=== PATIENT | female | born 1955 | race Caucasian/White ===

== ENCOUNTER 2019-11-29 17:53 | Emergency (ER) | payer BC, MEDICARE ==
[~2019-11-29] VITALS: Ht 154.9 cm; Wt 104.8 kg
[~2019-11-29 17:53] MED LIST: ASPIR 8181 MG PO; ATIVAN1 MG; B-121000 MCG PO; CINNAMON500 MG PO; CIPRO XR 500 M500 MG PO; CIPRO500 MG PO; DIAZEPAM5 MG PO; FAMOTIDINE20 MG PO; FISH OIL 1,2001 EACH PO; LISINOPRIL20 MG PO; PLAVIX75 MG PO; PRAVASTATIN SOD20 MG PO; VITAMIN E400 UNI3 PO
--- OUTSIDE RECORDS SUMMARY | 2019-11-29 17:56 | XMS REPORT ---
Author Author BEATRIZ Bradford [facility] eClinicalWorks Address Unknown Phone Unavailable Care Team Providers Care Facilities Maintenance Supervisor Name Role Phone El Bradford CP Unavailable Allergies, Adverse Reactions, Alerts Substance Reaction Event Type Levaquin Info Not Available Drug Allergy Codeine Phosphate Info Not Available Drug Allergy Problems Problem Type Condition Code Onset Dates Condition Statu s Problem Cerebral embolism with cerebral infarction I63.40 Active Problem Cognitive deficit due to old cerebrovascular accident (CVA) I69.31 Active Problem Depression, major, recurrent, in remission F33.40 Active Problem Moderate episode of recurrent major depressive disorde r F33.1 Active Problem Cognitive deficit due to old cerebrovascular accident (CVA) I69.319 Active Problem Cognitive deficits due to cerebrovascular disease 438. 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 Aspirin ND 77484242191 81 MG Orally Once a day Acti ve 1 tablet Lisinopril ND 47747330354 10 mg Orally Twice a day Active 1 tablet BuPROPion HCl [facility] 80943242959 100 mg Orally Twice a day Apr 20, 2019 Active 1 tablet Vitamin B12 [facility] 67019107109 1000 MCG Orally Once a day Active 1 tablet Zolpidem Tartrate [facility] 94757943053 5 MG Active TA KE ONE (1) TABLET(S) BY MOUTH AT BEDTIME. Vitamin E [facility] 28611950251 400 UNIT Orally Once a day Active 1 capsule Fish Oil [facility] 58992749241 1200 MG Orally Once a day A ctive 1 capsule Cephalexin [facility] 23208736334 500 mg Orally every 6 hrs Jun 08 9 Jun 18, 2019 Active 1 capsule Vital Signs Date/Time: Jun 08, 2019 BMI 41.56 Index Weight 220.0 lbs Height 61 in Cardiac Monitoring Heart Rate 57 /min Blood Pressure Diastolic 47 mm Hg Blood Pressure Systolic 108 mm Hg Results No Known Results Summary Purpose eClinicalWorks Submission
--- OUTSIDE RECORDS SUMMARY | 2019-11-29 17:56 | XMS REPORT | Summary of Care ---
Author Author [facility] Organization [facility] Address Unknown Phone Unavailable Encounter HQ Eduardo(FIN) [id number] Date(s): 02/07/18 - 02/08/18 [facility] [address] [place], [place] [id number]- [phone] Vital Signs No data available for this section Problem List Condition Effective Dates Status Health Status Informan t Embolic 08/21/15 Active stroke(Confirmed)1 Factor 5 Leiden Resolved mutation, heterozygous(Confirm ed) Hypertension(Confirm Resolved ed) Melanoma(Confirmed) Resolved Morbid Active obesity(Confirmed) Mourning(Confirmed)2 02/20/16 Resolved Non-traumatic 02/20/16 Active rhabdomyolysis(Confi rmed)3 Persistent 02/20/16 Active insomnia(Confirmed)4 , 5 Recurrent major 02/20/16 Active depression in remission(Confirmed) 6 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 The only VRFs discovered is a history of smoking in the past and FVLP. She developed HTN post-stroke. Originally documented as Cerebral embolism with cerebral infarction. 2Data migrated from [employer] on 07/08/15. Originally documented as Grief. 3Data migrated from [employer] on 07/08/15. The event of diffuse muscle pain was likely rhabdo related to the statin plus dehydration. Originally documented as Non-traumatic rhabdomyolysis. 4Data migrated from [employer] on 07/08/15. RT prior stroke (OBS). Originally documented as Persistent disorder of initiating or maintaining sleep. 5Data migrated from [employer] on 07/08/15. Originally documented as Persistent disorder of initiating or maintaining sleep. 6Data migrated from [employer] on 07/08/15. Doing well. Originally documented as Depression, major, recurrent, in remission. 7Data migrated from [employer] on 07/08/15. The patient continues to have symptoms of cognitive impairment despite have relatively controlled depression. Originally documented as Cognitive deficit due to old cerebrovascular accident (CVA). Allergies, Adverse Reactions, Alerts Substance Reaction Severity Status penicillins1 Active sulfa drugs2 Active codeine3 Active levoFLOXacin4 Active 1Data migrated from [employer] on 07/06/16. Originally documented as penicillin. 2Data migrated from [employer] on 07/06/16. Originally documented as sulfa. 3Data migrated from [employer] on 07/06/16. Originally documented as Codeine Phosphate. 4Data migrated from [employer] on 07/06/16. Originally documented as Levaquin. Medications No data available for this section Results No data available for this section Immunizations No data available for this section Procedures Procedure Date Related Diagnosis Body Site Status Hysterectomy 2000 Completed Coronary heart disease monitoring Completed Suspension of bladder Completed Social History Social History Type Response Substance Abuse Use: None. Recreational Dr [place] Route: Oral. Exercise Exercise frequency: Daily. Exercise type: Walking. Employment/School Status: Unemployed. Highes t education level: High school.1 Alcohol Never Smoking Status Former smoker; Exposure to Tobacco Smoke Unable to obtain; Cigarette Smoking Last 365 Days Unable to obtain; Reg Smoking Cessation Counseling No entered on: 04/20/18 1disability Assessment and Plan No data available for this section
--- OUTSIDE RECORDS SUMMARY | 2019-11-29 17:56 | XMS REPORT | Summary of Care ---
Author [facility] Address Unknown Phone Unavailable Encounter DELFIN Clark(FIN) [id number] Date(s): 03/11/18 - 03/12/18 [facility] [address] [place] [address] [phone] Vital Signs No data available for this [...] Restless leg Resolved syndrome(Confirmed) 1Data migrated from [employer] on 07/08/15. 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 The only VRFs discovered is a history of smoking in the past and FVLP. She developed HTN post-stroke. Originally documented as Cerebral embolism with cerebral infarction. 2Data migrated from [employer] on 07/08/15. Originally documented as Grief. 3Data migrated from [employer] on 07/08/15. The event of diffuse muscle pain was likely rhabdo related to the statin plus dehydration. Originally documented as Non-traumatic rhabdomyolysis. 4Data migrated from [employer] on 07/08/15. RT prior stroke (OBS). Originally documented as Persistent disorder of initiating or maintaining sleep. 5Data migrated from [employer] on 07/08/15. Originally documented as Persistent disorder of initiating or maintaining sleep. 6Data migrated from [employer] on 07/08/15. Doing well. Originally documented as Depression, major, recurrent, in remission. 7Data migrated from [employer] on 07/08/15. The patient continues to have symptoms of cognitive impairment despite have relatively controlled depression. Originally documented as Cognitive deficit due to old cerebrovascular accident (CVA). Allergies, Adverse Reactions, Alerts Substance Reaction Severity Status penicillins1 Active sulfa drugs2 Active codeine3 Active levoFLOXacin4 Active 1Data migrated from [employer] on 07/06/16. Originally documented as penicillin. 2Data migrated from [employer] on 07/06/16. Originally documented as sulfa. 3Data migrated from [employer] on 07/06/16. Originally documented as Codeine Phosphate. 4Data migrated from [employer] on 07/06/16. Originally documented as Levaquin. Medications No data available for this section Results No data available for this section Immunizations No data available for this section Procedures Procedure Date Related Diagnosis Body Site Status Hysterectomy 2000 Completed Coronary heart disease monitoring Completed Suspension of bladder Completed Social History Social History Type Response Substance Abuse Use: None. Recreational Dr jun Route: Oral. Exercise Exercise frequency: Daily. Exercise [...]
--- OUTSIDE RECORDS SUMMARY | 2019-11-29 17:56 | XMS REPORT ---
Author Author BEATRIZ Bradford Organization [employer] Address Unknown Phone Unavailable Care Team Providers Care Parts Counterperson Name Role Phone El Bradford CP Unavailable Allergies No Known Allergies Problems Problem Type Condition Code Onset Dates Condition Statu s Problem Depression, major, recurrent, in remission F33.40 Active Problem Cerebral embolism with cerebral infarction I63.40 Active Problem Cognitive deficit due to old cerebrovascular accident (CVA) I69.319 Active Problem Organic brain syndrome (chronic) F09 Active Problem Moderate episode of recurrent major depressive disorde r F33.1 Active Problem 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
--- OUTSIDE RECORDS SUMMARY | 2019-11-29 17:56 | XMS REPORT ---
Author Author BEATRIZ Bradford [facility] eClinicalWorks Address Unknown Phone Unavailable Care Team Providers Care Media Traffic Manager Name Role Phone Dr. El Bradford CP Unavailable Allergies, Adverse Reactions, Alerts Substance Reaction Event Type penicillin Info Not Available Drug Allergy sulfa Info Not Available Drug Allergy Levaquin Info Not Available Drug Allergy Codeine Phosphate Info Not Available Drug Allergy Encounters Encounter Location Date 6 month f/u [place] Feb 18, 2015 Zoloft Refill [place], [place] Mar 01, 2015 Unknown [place] Jun 04, 2015 6 month f/u El [place], [place] August 21, 2015 f/u [place] August 28, 2014 Wants to decrease dose on Sertraline El [place], [place] Aug Unknown El [place], [place] December 09, 2014 Problems Problem Type Condition ICD-9 Code Onset Dates Condition Statu s Assessment Depression, major, recurrent, in remission F33.40 Active Problem Cerebral embolism with cerebral infarction I63.40 Active Problem Cognitive deficit due to old cerebrovascular accident (CVA) I69.31 Active Problem 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 Active Assessment 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 Active Assessment Cognitive deficit due to old cerebrovascular accident (CVA) I69.31 Active Problem Depression, major, recurrent, in remission F33.40 Active Assessment Cerebral embolism with cerebral infarction I63.40 Active Medications Medication Code System Code Instructions Start Date End Date Status Dosage Lisinopril [facility] [address]-81 10 mg Orally Twice a day Active 1 tablet Aspirin [facility] [address]-75 81 MG Orally Once a day A ctive 1 tablet Pravastatin Sodium [facility] [address]-34 20 MG Orally Once a day Active 1 tablet Sertraline HCl [facility] [address]-63 20 MG/ML Orally once every nigh t Active 0.8 mls Zolpidem Tartrate [facility] [address]-43 5 MG Orally Once a day May 212014 Active 1 tablet at bedtime Social History Social History Element Qualifiers Date Reported Highest level of education completed: . High school diploma August 21, 2015 Tobacco Use: . Are you a: former smoker before her stroke but does not remember August 21, 2015 Use of recreational / street drugs? . Answer: No Terrance 2015 Marital Status: . August 21, 2015 Caffeine intake? . Status: Yes, What type: Coffee, Tea, 1 - 2 cup(s) a day August 21, 2015 Do you exercise? . Answer: Yes, Type: walkin g couple miles a day weather permitting August 21, 2015 Do you drink alcohol? . 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
--- OUTSIDE RECORDS SUMMARY | 2019-11-29 17:56 | XMS REPORT ---
Author Author BEATRIZ Alfaro Organization Unknown Address Unknown Phone Care Team Providers Care Instrument Lens Grinder Apprentice Name Role Phone Ashly Alfaro PP Reason for Referral No Reason for Referral was given. History of Present Illness No HPI available. Problems * Normal Routine History And Physical Adult (V70.0); (Active) * Hypertension (401.9); (Active) * Anxiety Disorder Of Unknown ([place] III) Etiology (293.84); (Active) Medication * LORazepam 0.5 MG Oral Tablet; 1 bid (Active) * Lexapro 10 MG Oral Tablet; TAKE 1 TABLET DAILY. (Active) * Fish Oil CAPS (Active) * Diazepam 5 MG Oral Tablet; 1 bid (Active) * Lisinopril 20 MG Oral Tablet; TAKE 1 TABLET DAILY. (Active) * Pravastatin Sodium 20 MG Oral Tablet; TAKE 1 TABLET DAILY. (Active) * Aspirin 81 MG Oral Tablet; one daily (Active) * Vitamin B-12 TABS (Active) * Vitamin E CAPS (Active) Allergies and Adverse Reactions * Sulfa Drugs (Active) * Penicillins (Active) * Codeine Derivatives (Active) * Levaquin TABS (Active) Past Medical History * History of Melanoma In Situ Of The Skin (V10.82); (Resolved) * History of History Of 2 Previous Pregnancies (V61.5); (Resolved) * History of Cerebral Artery Occlusion (434.90); (Resolved) * History of Urinary Tract Infection (V13.02); (Resolved) Procedures Procedure Procedure Date Date Completed Status Hysterectomy - - Resolved Bladder Procedures - - Resolved Immunization * Influenza - Administered on: 03/23/2011 Family History * Family history of Alzheimer Disease (Active) * Family history of Ovarian Cancer (V16.41); (Active) * Family history of Colon Cancer (V16.0); (Active) Social History * Former Smoker (V15.82); (Active) * Never Drank Alcohol (Active) Advance Directives * No Advance Directives available. Encounters * AUDIT 02/15/2013
--- OUTSIDE RECORDS SUMMARY | 2019-11-29 17:56 | XMS REPORT | Summary of Care ---
Author Author [facility] Organization [facility] Address Unknown Phone Unavailable Encounter DELFIN Clark(FIN) [id number] Date(s): 06/08/17 - 06/09/17 [facility] [address] [place], [place] [address] [phone] Vital Signs No data available for this section Problem List Condition Effective Dates Status Health Status Informan t Embolic 08/21/15 Active stroke(Confirmed)1 Factor 5 Leiden Resolved mutation, heterozygous(Confirm ed) Hypertension(Confirm Resolved ed) Melanoma(Confirmed) Resolved Morbid Active obesity(Confirmed) Mourning(Confirmed)2 02/20/16 Active Non-traumatic 02/20/16 Active rhabdomyolysis(Confi rmed)3 Persistent 02/20/16 Active insomnia(Confirmed)4 , 5 Recurrent major 02/20/16 Active depression in remission(Confirmed) 6 Residual cognitive 02/20/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 The only VRFs discovered is a history of smoking in the past and FVLP. She developed HTN post-stroke. Originally documented as Cerebral embolism with cerebral infarction. 2Data migrated from [employer] on 07/08/15. Originally documented as Grief. 3Data migrated from [employer] on 07/08/15. The event of diffuse muscle pain was likely rhabdo related to the statin plus dehydration. Originally documented as Non-traumatic rhabdomyolysis. 4Data migrated from [employer] on 07/08/15. RT prior stroke (OBS). Originally documented as Persistent disorder of initiating or maintaining sleep. 5Data migrated from [employer] on 07/08/15. Originally documented as Persistent disorder of initiating or maintaining sleep. 6Data migrated from [employer] on 07/08/15. Doing well. Originally documented as Depression, major, recurrent, in remission. 7Data migrated from [employer] on 07/08/15. The patient continues to have symptoms of cognitive impairment despite have relatively controlled depression. Originally documented as Cognitive deficit due to old cerebrovascular accident (CVA). Allergies, Adverse Reactions, Alerts Substance Reaction Severity Status penicillins1 Active sulfa drugs2 Active codeine3 Active levoFLOXacin4 Active 1Data migrated from [employer] on 07/06/16. Originally documented as penicillin. 2Data migrated from [employer] on 07/06/16. Originally documented as sulfa. 3Data migrated from [employer] on 07/06/16. Originally documented as Codeine Phosphate. 4Data migrated from [employer] on 07/06/16. Originally documented as Levaquin. Medications zolpidem 5 mg oral tablet 5 mg = 1 tab, PO, Bedtime, X 90 day, # 90 tab, 1 Refill(s), called to pharmacy Start Date: 06/09/17 Stop Date: 12/06/17 Status: Ordered Results No data available for this section Immunizations No data available for this section Procedures Procedure Date Related Diagnosis Body Site Hysterectomy 2000 Coronary heart disease monitoring Suspension of bladder Social History Social History Type Response Substance Abuse Use: None. Recreational Dr jun Route: Oral. Exercise Exercise frequency: Daily. Exercise type: Walking. Employment/School Status: Unemployed. Highes t education level: High school.1 Alcohol Never Smoking Status Former smoker; Exposure to Tobacco Smoke Unable to obtain; Cigarette Smoking Last 365 Days Unable to obtain; Reg Smoking Cessation Counseling No 1disability Assessment and Plan No data available for this section
--- OUTSIDE RECORDS SUMMARY | 2019-11-29 17:56 | XMS REPORT ---
Author Author BEATRIZ Bradford [facility] eClinicalWorks Address Unknown Phone Unavailable Care Team Providers Care Senior Patient Account Representative Name Role Phone El Bradford CP Unavailable Encounters Encounter Location Date f/u [place] August 28, 2014 Wants to decrease dose on Sertraline El Bradford [place], [place] Aug Unknown El [place], [place] December 09, 2014 Problems Problem Type Condition ICD-9 Code Onset Dates Condition Statu s Problem 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 0 Active Problem Persistent disorder of initiating or maintaining sleep 307.42 Active Problem Major depressive disorder, recurrent episode, moderate 296.32 Active Assessment Persistent disorder of initiating or maintaining sleep 307.42 Active Medications Medication Code System Code Instructions Start Date End Date Status Dosage Zoloft [facility] [address]-22 20 MG/ML Orally Once a day Active .9 ml at bedtime Pravastatin Sodium [facility] [address]-55 20 MG Orally Once a day Active [address] [facility] [address]-79 10 mg Orally Twice a day Active [address] [facility] [address]-60 5 MG Orally Once a day December 09, 2014 Active 1 tablet at bedtime Aspirin [facility] [address]-99 81 MG Orally Once a day A ctive 1 tablet Social History Social History Element Qualifiers Date Reported Highest level of education completed: . High school diploma August 28, 2014 Tobacco Use: . Are you a: former smoker before her stroke but does not remember August 28, 2014 Use of recreational / street drugs? . Answer: No Terrance 2014 Marital Status: . August 28, 2014 Caffeine intake? . Status: Yes, What type: Coffee, Tea, 1 - 2 cup(s) a day August 28, 2014 Do you exercise? . Answer: Yes, Type: walkin g couple miles a day weather permitting August 28, 2014 Do you drink alcohol? . 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
--- OUTSIDE RECORDS SUMMARY | 2019-11-29 17:56 | XMS REPORT | Summary of Care ---
Author Author [facility] Organization [facility] Address Unknown Phone Unavailable Encounter DELFIN Clark(FIN) [id number] Date(s): 11/22/17 - 11/23/17 [facility] [address] [place] [phone] Vital Signs No data available for this [...] Restless leg Resolved syndrome(Confirmed) 1Data migrated from [employer] on 07/08/15. 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 The only VRFs discovered is a history of smoking in the past and FVLP. She developed HTN post-stroke. Originally documented as Cerebral embolism with cerebral infarction. 2Data migrated from [employer] on 07/08/15. Originally documented as Grief. 3Data migrated from [employer] on 07/08/15. The event of diffuse muscle pain was likely rhabdo related to the statin plus dehydration. Originally documented as Non-traumatic rhabdomyolysis. 4Data migrated from [employer] on 07/08/15. RT prior stroke (OBS). Originally documented as Persistent disorder of initiating or maintaining sleep. 5Data migrated from [employer] on 07/08/15. Originally documented as Persistent disorder of initiating or maintaining sleep. 6Data migrated from [employer] on 07/08/15. Doing well. Originally documented as Depression, major, recurrent, in remission. 7Data migrated from [employer] on 07/08/15. The patient continues to have symptoms of cognitive impairment despite have relatively controlled depression. Originally documented as Cognitive deficit due to old cerebrovascular accident (CVA). Allergies, Adverse Reactions, Alerts Substance Reaction Severity Status penicillins1 Active sulfa drugs2 Active codeine3 Active levoFLOXacin4 Active 1Data migrated from [employer] on 07/06/16. Originally documented as penicillin. 2Data migrated from [employer] on 07/06/16. Originally documented as sulfa. 3Data migrated from [employer] on 07/06/16. Originally documented as Codeine Phosphate. 4Data migrated from [employer] on 07/06/16. Originally documented as Levaquin. Medications sertraline 20 mg/mL oral concentrate See Instructions, # 24 unknown unit, TAKE 0.8 ML(S) BY MOUTH DAILY., Pharmacy: [facility] [place] [facility] Start Date: 11/22/17 Status: Ordered Results No data available for [...] Reg Smoking Cessation Counseling No entered on: 04/21/17 1disability Assessment and Plan No data available for this section
--- OUTSIDE RECORDS SUMMARY | 2019-11-29 17:56 | XMS REPORT ---
Author Author BEATRIZ Bradford [facility] eClinicalWorks Address Unknown Phone Unavailable Care Team Providers Care Sand Bobber Name Role Phone El Bradford CP Unavailable Allergies, Adverse Reactions, Alerts Substance Reaction Event Type penicillin Info Not Available Drug Allergy sulfa Info Not Available Drug Allergy Levaquin Info Not Available Drug Allergy Codeine Phosphate Info Not Available Drug Allergy Encounters Encounter Location Date 6 month f/u [place] Feb 18, 2015 f[place] August 28, 2014 Wants to decrease dose on Sertraline El Bradford MD, [place] Aug Unknown [place], [place] December 09, 2014 Problems Problem Type Condition ICD-9 Code Onset Dates Condition Statu s Assessment 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 0 Active Medications Medication Code System Code Instructions Start Date End Date Status Dosage [facility] [address]-94 81 MG Orally Once a day A ctive 1 tablet Pravastatin S[facility] [address]-10 20 MG Orally Once a day Active 1 tablet Zolpidem Tartrate [facility] [address]-07 5 MG Orally Once a day December 09, 2014 Active 1 tablet at bedtime Sertraline HCl [facility] [address]-48 .08 Orally Once a day Active .8 Lisinopril [facility] [address]-42 10 mg Orally Twice a day Active 1 tablet Social History Social History Element Qualifiers Date Reported Highest level of education completed: . High school diploma Feb 18, 2015 Tobacco Use: . Are you a: former smoker before her stroke but does not remember Feb 18, 2015 Use of recreational / street drugs? . Answer: No Feb 18, 2015 Marital Status: . Feb 18, 2015 Caffeine intake? . Status: Yes, What type: Coffee, Tea, 1 - 2 cup(s) a day Feb 18, 2015 Do you exercise? . Answer: Yes, Type: walkin g couple miles a day weather permitting Feb 18, 2015 Do you drink alcohol? . 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
--- OUTSIDE RECORDS SUMMARY | 2019-11-29 17:56 | XMS REPORT | Continuity of Care Document ---
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 Originally documented as Grief. [facility] Group[facility]el Neuro,[facility] Nancie, OPID [place] Non-traumatic rhabdomyolysis (disorder) Active 02/20/2016 Problem 06/11/2019 Data migrated from [employer] on 07/08/15. The event of diffuse muscle pain was likely rhabdo related to the statin plus dehydration. Originally documented as Non-traumatic rhabdomyolysis. [facility] Jose Rafael sharpe, OPID [place] Persistent insomnia (disorder) Active 02/20/2016 Problem 06/11/2019 Data migrated from [employer] on 07/08/15. RT prior stroke (OBS). Originally documented as Persistent disorder of initiating or maintaining sleep. Data migrated from [employer] on 07/08/15. Originally documented as Persistent disorder of initiating or maintaining sleep. [facility], [facility] Nancie, OPID [place] Recurrent major depression in remission (disorder) Active 02/20/2016 Problem 06/11/2019 Data migrated from [employer] on 07/08/15. Doing well. Originally documented as Depression, major, recurrent, in remission. 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 The patient continues to have symptoms of cognitive impairment despite have relatively controlled depression. Originally documented as Cognitive deficit due to old cerebrovascular accident (CVA). Medical Group,Ismael Perez, FLORENTINO sharpe NEIL Burgos Embolic stroke (disorder) Acti ve 08/21/2015 Problem 06/11/2019 Data migrated from [employer] on . 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 The only VRFs discovered is a history of smoking in the past and FVLP. She developed HTN post-stroke. Originally documented as Cerebral embolism with cerebral infarction. 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 Active Problem 08/09/2019 [facility] [place] Persistent disorder of initiating or maintaining sleep Active Problem 06/05/2015 [facility] [place] Major depressive disorder, recurrent episode, moderate Active Problem 06/05/2015 [facility] Persistent disorder of initiating or maintaining sleep Active Problem 08/09/2019 [facility] Depression, major, recurrent, in remission Active Problem 08/09/2019 [facility] [place] Cerebral embolism with cerebral infarction Active Problem 08/09/2019 [facility] Cognitive deficit due to old cerebrovasc ular accident (CVA) Active Prob cammie 08/09/2019 [facility] Organic brain syndrome (chronic) Active Problem Na[facility] Moderate episode of recurrent major depressive disorde r Active Problem 08/09/2019 [facility] Cognitive deficit due to old cerebrovasc ular accident (CVA) Active Prob cammie 08/09/2019 [facility] Grief Active Problem 08/09/2019 [facility] Non-traumatic rhabdomyolysis A ctive Problem [facility] [place] Paronychia of finger of right hand Active Diagnosis 1 08/16/2018 [facility] Heterozygous Factor V Leiden mutation (disorder) Resolved Problem 06/11/2019 Medical GroupIsmael, FLORENTINO Fink NEIL Burgos Hypertensive disorder, systemic arterial (disorder) Resolved Problem 06/11/2019 Medical Group,[facility] Neuro,[facility] [place] [place] Malignant melanoma (disorder) Resolved Problem Medical Group,Ismael Radha ro,[facility] [place],[facility] Morbid obesity (disorder) Acti ve Problem Medical Group,Ravenmisha Garcia ro,[facility] [place],[facility] Restless legs (disorder) Resol morgan Problem Medical Group,[facility] Radha brink,[facility] [place] [place] Cough 01/23/2019 [facility] Medications Medication Details Route Status Patient Instructions Ordering Provider Order Date Source Cephalexin 1 capsule Orally Active 500 mg Orally every 6 h rs Maude 06/08/2019 [facility] [place] BuPROPion HCl 1 tablet Orally Active 100 mg Orally Twice a d ay Maude 04/20/2019 [facility] [place] zolpidem 5 mg oral tablet 5 mg = 1 tab, PO, Bedtime, X 30 day, # 30 tab, 3 Refill(s), called to pharmacy No Longer Active 07/12/2018 [facility] sertraline 20 mg/mL oral concentrate See Instructions, TAKE 0.8 ML(S) BY MOUTH DAILY., # 72 mL, 3 Refill(s), Pharmacy: [facility] [place] [facility]3 Active 04/20/2018 [facility] Vitamin B12 1000 mcg oral tablet 1,000 microgram = 1 tab, PO, Daily, 0 Refill(s) Active 04/20/2018 [facility] vitamin E 400 intl units oral capsule 400 IntlUnit = 1 cap, PO, Daily, 0 Refill(s) Active 04/20/2018 [facility] Probiotic Formula PO, Daily, 0 Refill(s) Active 04/20/2018 [facility] Fish Oil 1200 mg oral capsule 1,200 mg = 1 cap, PO, TID, 0 Refill(s) Active 04/20/2018 [facility] zolpidem 5 mg oral tablet 5 mg = 1 tab, PO, Bedtime, X 30 day, # 30 tab, 3 Refill(s), called to pharmacy No Longer Active 03/14/2018 [facility] sertraline 20 mg/mL oral concentrate See Instructions, # 24 unknown unit, Refill(s) 1, TAKE 0.8 ML(S) BY MOUTH DAILY., Pharmacy: [facility] [place] [facility]3 Active 12/20/2017 [facility] zolpidem 5 mg oral tablet 5 mg = 1 tab, PO, Bedtime, X 90 day, # 90 tab, 0 Refill(s), called to pharmacy Active 12/13/2017 [facility] sertraline 20 mg/mL oral concentrate See Instructions, # 24 unknown unit, TAKE 0.8 ML(S) BY MOUTH DAILY., Pharmacy: [facility] [place] [facility]3 Active 11/22/2017 [facility] sertraline 20 mg/mL oral concentrate See Instructions, # 24 unknown unit, TAKE 0.8 ML(S) BY MOUTH DAILY., Pharmacy: [facility] [place] [facility]3 Active 10/25/2017 [facility] sertraline 20 mg/mL oral concentrate See Instructions, # 24 unknown unit, TAKE 0.8 ML(S) BY MOUTH DAILY., Pharmacy: [facility] [place] #3 No Longer Active 09/20/2017 [facility] zolpidem 5 mg oral tablet 5 mg = 1 tab, PO, Bedtime, X 90 day, # 90 tab, 1 Refill(s), called to pharmacy Active 06/09/2017 Medical Group Sertraline HCl 0.8 mls Orally Active 20 MG/ML Orally once ev mili night [place] 02/20/2016 [facility] [place] Zolpidem Tartrate 1 tablet at bedtime Orally Active 5 MG Orally Once a day [place] 06/04/2015 Na[facility] Zolpidem Tartrate 1 tablet at bedtime Orally Active 5 MG Orally Once a day [place] 06/04/2015 [facility] [place] Zolpidem Tartrate 1 tablet at bedtime Orally Active 5 MG Orally Once a day [place] 12/09/2014 Naresh [facility] Zolpidem Tartrate 1 tablet at bedtime Orally Active 5 MG Orally Once a day Maude 08/14/2014 [facility] LORazepam 0.5 MG Oral Tablet (Active) Active [facility] Lexapro 10 MG Oral Tablet (Ac tive) Active [facility] Fish Oil CAPS (Active) Active [facility] Diazepam 5 MG Oral Tablet (Ac tive) Active [facility] Lisinopril 20 MG Oral Tablet (Active) Active [facility] Pravastatin Sodium 20 MG Oral Tablet (Active) Active [facility] Aspirin 81 MG Oral Tablet (Ac tive) Active [facility] Vitamin B-12 TABS (Active) Active [facility] Vitamin E CAPS (Active) Active [facility] Lisinopril 1 tablet Orally Active 10 mg Orally Twice a da y Maude [facility] [place] Aspirin 1 tablet Orally Active 81 MG Orally Once a day Maude Na[facility] Sertraline HCl 0.8 mls Orally Active 20 MG/ML Orally once ev mili night Maude [facility] [place] Pravastatin Sodium 1 tablet Orally Active 20 MG Orally Once a day Maude Naresh [facility] Zoloft .9 ml at bedtime Orally Active 20 MG/ML Orally Once a day Maude [facility] [place] Pravastatin Sodium 1 tablet Orally Active 20 MG Orally Once a day Maude [facility] [place] Fish Oil 1 capsule Orally Active 1200 MG Orally Once a d ay Maude [facility] [place] Sertraline HCl take 0.4ml(s) b y mouth daily. NA Active 20 MG/ML Maude [facility] [place] Vitamin E 1 capsule Orally Active 400 UNIT Orally Once a day [place] Naresh [facility] Vitamin B12 1 tablet Orally Active 1000 MCG Orally Once a day Maude [facility] [place] Aspirin 1 tablet Orally Active 81 MG Orally Once a day Maude Narseh Maude Lisinopril 1 tablet Orally Active 10 mg Orally Twice a da y [place] [facility] [place] Zolpidem Tartrate TAKE ONE (1) TABLET(S) BY MOUTH AT BEDTIME. NA Active 5 MG [place] [facility] [place] Allergies, Adverse Reactions, Alerts Substance Category Reaction Severity Reaction type Status Date Reported Comments Source penicillins<sup>1</sup> Assert ion Drug aller gy Active 12/19/2012 Data migrated from [employer] on 07/06/16. Originally documented as penicillin. [facility] sulfa drugs<sup>2</sup> Assert ion Drug aller gy Active 12/19/2012 Data migrated from [employer] on 07/06/16. Originally documented as sulfa. [facility] codeine<sup>3</sup> Assertion Drug allergy Active 12/19/2012 Data migrated from [employer] on 07/06/16. Originally documented as Codeine Phosphate. [facility] levoFLOXacin<sup>4</sup> Asser tion Drug aller gy Active 12/19/2012 Data migrated from [employer] on 07/06/16. Originally documented as Levaquin. [facility] penicillin Adverse Reaction Info Not Available Adverse Reaction Active 02/20/2016 [facility] [place] sulfa Adverse Reaction Info Not Available Adverse Reaction Active 02/20/2016 [facility] Levaquin Adverse Reaction Info Not Available Adverse Reaction Active 06/08/2019 [facility] [place] Codeine Phosphate Adverse Reac tion Info Not Available Adverse Reaction Active 06/08/2019 Na[facility] Sulfa Drugs drug allergy drug allergy Active [facility] Penicillins drug allergy drug allergy Active [facility] Codeine Derivatives drug aller gy drug aller gy Active [facility] Levaquin TABS drug allergy drug allergy Active [facility] Immunizations Immunization Date Given Site Status Last Updated Comments Source Influenza 03/23/2011 completed [facility] Results No Data Provided for This Section Pathology Reports No Data Provided for This Section Diagnostic Reports Report Value Date Source Hip bilat w pelvis and both lat hips DX EXAM: XR BILATERAL HIP 2 VIEWS DATE: 07/05/2018 9:59 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 TECHNIQUE: 2 views of each hip, including the pelvis FINDINGS: No acute fracture or malalignment is identified. Bilateral right greater than left degenerative joint disease of the sacroiliac joints with mild periosteal reaction. 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 Hip joint spaces are preserved bilaterally. Small enthesophytes present on the bilateral greater trochanters. No sacral fractures are noted, however evaluation is somewhat limited due to the presence of stool and bowel gas. Mild degenerative changes of the pubic symphysis. Mild lower lumbar spine degenerative changes. Mild diffuse osteopenia. No soft tissue abnormality is identified. Surgical clips are present in the project over the pubic symphysis. IMPRESSION: 1. No acute fracture or malalignment. M RI of the hip may be considered if there is a persistent clinical concern. 2. Mild bilateral hip joint degenerativ e changes. 3. Moderate right and mild left SI join t degenerative changes. 07/05/2018 [facility] Chest 2 views DX EXAM: XR CHES T 2 VIEWS DATE: 07/05/2018 9:59 HYDRA[employer] OPERATOR INDICATION: Cough and chest congestion for the past 2 months. COMPARISON: 05/10/2017 TECHNIQUE: PA and lateral chest radiographs FINDINGS: Cardiac monitoring device is again seen in the anterior left chest wall. There is stable scalloping of the right hemidiaphragm anteriorly, likely from focal eventration. No lung parenchymal or pleural abnormalities are seen. Keren and pulmonary vasculature are normal. Cardiac silhouette is normal in size. Atherosclerotic calcifications are seen in the aortic arch. No acute bony abnormality is identified. Mild multilevel spondylosis is again seen in the thoracic spine. IMPRESSION: 1. No acute cardiopulmonary abnormalitie s. 2. Stable scalloping of the right anteri or hemidiaphragm likely from focal eventration. 3. Stable atherosclerosis of the aortic arch. 4. Stable degenerative changes in the sp ine. 07/05/2018 [facility] Spine Lumbar Comp w Bend views DX EXAM: XR LUMBAR SPINE 7 VIEWS DATE: 07/05/2018 1007 hours. INDICATION: - chronic low back pain without sciatica COMPARISON: None. TECHNIQUE: AP, lateral, coned lateral, LPO, RPO, flexion, extension views of the lumbar spine FINDINGS: 5 nonrib bearing, lumbar-type vertebral bodies are present. Mild L1 to hand L5-S1 disc height narrowing with endplate sclerosis. Vertebral body heights and remaining disc heights are preserved. Multilevel osteophytes are present, most prominent at L1-L2. There is no spondylolysis or spondylolisthesis. Bilateral moderate to severe facet arthrosis in the lower lumbar spine, process involving L5-S1. There is restricted motion upon flexion or extension. Degenerative changes also seen in between the spinous processes of the lumbar spine. Right greater than left degenerative joint disease of the SI joints. Mild diffuse osteopenia. No soft tissue abnormality is identified. Atherosclerotic vascular calcifications are present. IMPRESSION: 1. Multilevel degenerative changes with mild disc height loss at L1-L2 and L5- S1. 2. Severe facet arthrosis at L5-S1 and moderate facet arthrosis seen at L4-L5. 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 There is scalloping of the right anterior hemidiaphragm, likely from focal eventration. No lung parenchymal or pleural abnormalities are seen. Keren and pulmonary vasculature are normal. Cardiac silhouette size. Atherosclerotic calcified patient are seen in the aortic arch. No acute bony abnormality is identified. Multilevel spondylosis is seen in the thoracic spine. IMPRESSION: 1. No acute cardiopulmonary abnormality. 2. Scalloping of the right anterior emilio diaphragm is likely from focal eventration. A small diaphragmatic hernia is not excluded. 3. Atherosclerotic vascular disease of t he aortic arch. 4. Mild degenerative changes in the thor acic spine. 05/10/2017 [facility] Consultation Notes No Data Provided for This Section Discharge Summaries No Data Provided for This Section History and Physicals No Data Provided for This Section Vital Signs Vital Sign Value Date Comments Source Weight 220.0 06/08/2019 Naresh [facility] Height 61 1 08/09/2018 [facility] Heart Rate 57 06/08/2019 [facility] Diastolic (mm Hg) 47 06/08/2019 Na[facility] Systolic (mm Hg) 108 06/08/2019 [facility] Weight 222.6 04/20/2019 [facility] [place] Height 61 1 [facility] Heart Rate 56 04/20/2019 [facility] Diastolic (mm Hg) 90 04/20/2019 [facility] Systolic (mm Hg) 126 04/20/2019 [facility] Weight 102.443 04/20/2018 [facility] Systolic (mm Hg) 122 04/20/2018 [facility] Diastolic (mm Hg) 69 04/20/2018 [facility] Heart Rate 52 04/20/2018 [facility] Weight 226 02/20/2016 [facility] [place] Height 61 0 02/20/2016 [facility] [place] Heart Rate 58 02/20/2016 Na[facility] Diastolic (mm Hg) 78 02/20/2016 Naresh [facility] Systolic (mm Hg) 141 02/20/2016 [facility] [place] Weight 222.0 08/21/2015 Naresh Maude Height 61 0 08/21/2015 [facility] [place] Heart Rate 78 08/21/2015 [facility] [place] Diastolic (mm Hg) 69 08/21/2015 [facility] [place] Systolic (mm Hg) 124 08/21/2015 Naresh [facility] Weight 225.0 02/18/2015 [facility] [place] Height 61 0 02/18/2015 Naresh [facility] Heart Rate 72 02/18/2015 [facility] [place] Diastolic (mm Hg) 77 02/18/2015 [facility] [place] Systolic (mm Hg) 129 02/18/2015 Na[facility] Weight 221.6 08/28/2014 [facility] [place] Height 61 0 08/28/2014 Naresh [facility] Heart Rate 62 08/28/2014 Naresh [facility] Diastolic (mm Hg) 70 08/28/2014 [facility] [place] Systolic (mm Hg) 115 08/28/2014 Naresh [facility] Encounters Location Location Details Encounter Type Encounter Number Reason For Visit Attending Provider ADM Date DC Date Status Source AUDIT [id number] 02/15/2013 02/15/2013 [facility] Naresh Santoro MD, JOSE RAFAEL f/u [id number] 08/28/2014 08/28/2014 Naresh Santoro MD, JOSE RAFAEL f/u [id number] 08/28/2014 08/28/2014 Naresh Santoro MD, JOSE RAFAEL f/u [id number] 08/28/2014 08/28/2014 Naresh Santoro MD, PA f/u [id number] 08/28/2014 08/28/2014 Naresh Santoro MD, PA f/u [id number] 08/28/2014 08/28/2014 Naresh Santoro MD, PA f/u [id number] 08/28/2014 08/28/2014 Naresh Santoro MD, JOSE RAFAEL f/u [id number] 08/28/2014 08/28/2014 Naresh Santoro MD, PA f/u [id number] 08/28/2014 08/28/2014 Naresh Santoro MD, PA Wants to decrease dose on Sertraline [id number] 08/28/2014 08/28/2014 Naresh Santoro MD, PA Wants to decrease dose on Sertraline [id number] 08/28/2014 08/28/2014 Naresh Santoro MD, PA Wants to decrease dose on Sertraline [id number] 08/28/2014 08/28/2014 Naresh Santoro MD, PA Wants to decrease dose on Sertraline [id number] 08/28/2014 08/28/2014 Naresh Santoro MD, PA Wants to decrease dose on Sertraline [id number] 08/28/2014 08/28/2014 Naresh Santoro MD, PA Wants to decrease dose on Sertraline [id number] 08/28/2014 08/28/2014 Naresh Santoro MD, PA Wants to decrease dose on Sertraline [id number] 08/28/2014 08/28/2014 Naresh Santoro MD, PA Wants to decrease dose on Sertraline [id number] 08/28/2014 08/28/2014 Naresh Santoro MD, PA Unknown [id number] 12/11/19 15 12/10/2014 Naresh Santoro MD, PA Unknown [id number] 12/11/19 15 12/10/2014 Naresh Santoro MD, PA Unknown [id number] 12/11/19 15 12/10/2014 Naresh Santoro MD, PA Unknown [id number] 12/11/19 15 12/10/2014 Naresh Santoro MD, PA Unknown [id number] 12/11/19 15 12/10/2014 Naresh Santoro MD, PA Unknown [id number] 12/11/19 15 12/10/2014 Naresh Santoro MD, PA Unknown [id number] 12/11/19 15 12/10/2014 Naresh Santoro MD, PA 6 month f/u [id number] 02/19/20 15 02/18/2015 Naresh Santoro MD, PA 6 month f/u [id number] 02/19/20 15 02/18/2015 Naresh Santoro MD, PA 6 month f/u [id number] 02/19/20 15 02/18/2015 Naresh Santoro MD, PA 6 month f/u [id number] 02/19/20 15 02/18/2015 Naresh Santoro MD, PA 6 month f/u [id number] 02/19/20 15 02/18/2015 Naresh Santoro MD, PA 6 month f/u [id number] 02/19/20 15 02/18/2015 Naresh Santoro MD, JOSE RAFAEL Holdenofrandy Refill [id number] 03/01/20 15 03/01/2015 Naresh Santoro MD, JOSE RAFAEL Zoloft Refill [id number] 03/01/20 15 03/01/2015 Naresh Santoro MD, JOSE RAFAEL Holdenoft Refill [id number] 03/01/20 15 03/01/2015 Naresh Santoro MD, JOSE RAFAEL Holdenoft Refill [id number] 03/01/20 15 03/01/2015 Naresh Santoro MD, JOSE RAFAEL Holdenofrandy Refill [id number] 03/01/20 15 03/01/2015 Naresh Santoro MD, JOSE RAFAEL Unknown [id number] 06/04/20 15 06/04/2015 Naresh Santoro MD, PA Unknown [id number] 06/04/20 15 06/04/2015 Naresh Santoro MD, PA Unknown [id number] 06/04/20 15 06/04/2015 Naresh Santoro MD, PA Unknown [id number] 06/04/20 15 06/04/2015 Naresh Santoro [facility] [id number] NARESH SANTORO 08/21/2015 [facility] Naresh Shelleyum, MD, PA 6 month f/u [id number] 08/21/19 16 08/21/2015 Naresh Santoro MD, PA 6 month f/u [id number] 08/21/19 16 08/21/2015 Naresh Santoro MD, PA 6 month f/u [id number] 08/21/19 16 08/21/2015 [facility] [place] [facility] [id number] NARESH MAUDE 02/20/2016 Active Yan Malonewalker Santoro MD, PA 6 month f/u [id number] 02/20/20 16 02/20/2016 Naresh Santoro MD, PA 6 month f/u [id number] 02/20/20 16 02/20/2016 Naresh Santoro MD, PA Neupanex?? [id number] 04/02/20 16 04/02/2016 Na[facility] Outpatient [id number] NARESH MAUDE 08/25/2016 Active [facility] Outpatient [id number] NARESH MAUDE 12/24/2016 Active [facility] Outpatient [id number] NARESH MAUDE 04/21/2017 Active [facility] [place] [facility] [id number] Lorena Angulo 05/10/2017 05/11/2017 [facility] Phone Message [id number] 06/08/2017 06/10/2017 [facility] Phone Message [id number] 06/09/2017 06/11/2017 [facility] Phone Message [id number] 09/20/2017 09/22/2017 [facility] Phone Message [id number] 10/25/2017 10/27/2017 [facility] Phone Message [id number] 11/22/2017 11/24/2017 [facility] Phone Message [id number] 12/13/2017 12/15/2017 [facility] Phone Message [id number] 12/14/2017 12/16/2017 [facility] Phone Message [id number] 12/20/2017 12/22/2017 [facility] Phone Message [id number] 02/07/2018 02/09/2018 [facility] Phone Message [id number] 03/11/2018 03/13/2018 [facility] Phone Message [id number] 03/14/2018 03/16/2018 [facility] Outpatient [id number] [facility] 04/20/2018 Active [facility] Outpatient [id number] [facility] 04/20/2018 04/21/2018 [facility] Outpatient Imaging - [facility] [id number] BrendonLucianoTim Ye 07/05/2018 07/06/2018 [facility] [place] [facility] Phone Message [id number] 07/12/2018 07/14/2018 [facility] Phone Message [id number] 08/24/2018 08/26/2018 [facility] [place] [facility] Patients [id number] Harsha Roach 9 10/13/2018 [facility] [place] [facility] Phone Message [id number] 11/10/2018 11/12/2018 [facility] Outpatient [id number] [facility] 04/20/2019 Active [facility] Outpatient [id number] [facility] 04/20/2019 04/21/2019 [facility] [id number] [facility] 06/08/2019 Active [facility] Outpatient [id number] [facility] 06/08/2019 06/09/2019 [facility] Outpatient [id number] Naresh Santoro 06/03/2020 Active [facility] Procedures Procedure Code Date Perfomer Comments Source Hysterectomy [id number] 06/21/2000 [facility] Jose Rafael sharpe,[facility] [place] Coronary heart disease monitoring [id number] [facility] Neuro,[facility] Jose Rafael sharpe,[facility] [place] Suspension of bladder [id number] [facility] Nanice,[facility] [place] Assessment and Plan No Data Provided for This Section Plan of Care No Data Provided for This Section Social History Social History Date Source Social History TypeResponse Substance Abuse Use: None. Recreational Drug Route: Oral. Exercise Exercise frequency: Daily. Exercise type: Walking. Employment/School Status: Unemployed. Highest education level: High school.1 Alcohol Never Smoking Status Former smoker; Exposure to Tobacco Smoke Unable to obtain; Cigarette Smoking Last 365 Days Unable to obtain; Reg Smoking Cessation Counseling No entered on: 04/20/18 1disability 02/24/2017 [facility] [place] Social History TypeResponse Substance Abuse Use: None. Recreational Drug Route: Oral. Exercise Exercise frequency: Daily. Exercise type: Walking. Employment/School Status: Unemployed. Highest education level: High school.1 Alcohol Never Smoking Status Former smoker; Exposure to Tobacco Smoke Unable to obtain; Cigarette Smoking Last 365 Days Unable to obtain; Reg Smoking Cessation Counseling No entered on: 04/21/17 1disability 02/24/2017 [facility] Social History TypeResponse Substance Abuse Use: None. Recreational Drug Route: Oral. Exercise Exercise frequency: Daily. Exercise type: Walking. Employment/School Status: Unemployed. Highest education level: High school.1 Alcohol Never Smoking Status Former smoker; Exposure to Tobacco Smoke Unable to obtain; Cigarette Smoking Last 365 Days Unable to obtain; Reg Smoking Cessation Counseling No entered on: 04/20/18 1disability 02/24/2017 [facility] Nancie Social History TypeResponse Alcohol Never Employment/School Status: Unemployed. Highest education level: High school.1 Exercise Exercise frequency: Daily. Exercise type: Walking. Substance Abuse Use: None. Recreational Drug Route: Oral. Smoking Status Former smoker; Exposure to Tobacco Smoke Unable to obtain; Cigarette Smoking Last 365 Days Unable to obtain; Reg Smoking Cessation Counseling No entered on: 04/20/18 1disability 07/22/2016 [facility] Social History ElementQualifiersDate Rep orted Highest level of education completed: . High school diploma Feb 20, 2016 Tobacco Use: . Are you a: former smoker before her s troke but does not remember Feb 20, 2016 Use of recreational / street drugs? . Answer: No Feb 20, 2016 Marital Status: . Feb 20, 2016 Caffeine intake? . Status: Yes, What type: Coffee, Tea, 1 - 2 cup(s) a day Feb 20, 2016 Do you exercise? . Answer: Yes, Type: walking couple mil es a day weather permitting Feb 20, 2016 Do you drink alcohol? . 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 02/15/2013 [facility] Functional Status No Data Provided for This Section
--- OUTSIDE RECORDS SUMMARY | 2019-11-29 17:56 | XMS REPORT | Summary of Care ---
Author Author [facility] Organization [facility] Address Unknown Phone Unavailable Encounter DELFIN Clark(FIN) [id number] Date(s): 03/14/18 - 03/15/18 [facility] [address] [place] [address]- Vital Signs No data available for this [...] Restless leg Resolved syndrome(Confirmed) 1Data migrated from [employer] on 07/08/15. 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 The only VRFs discovered is a history of smoking in the past and FVLP. She developed HTN post-stroke. Originally documented as Cerebral embolism with cerebral infarction. 2Data migrated from [employer] on 07/08/15. Originally documented as Grief. 3Data migrated from [employer] on 07/08/15. The event of diffuse muscle pain was likely rhabdo related to the statin plus dehydration. Originally documented as Non-traumatic rhabdomyolysis. 4Data migrated from [employer] on 07/08/15. RT prior stroke (OBS). Originally documented as Persistent disorder of initiating or maintaining sleep. 5Data migrated from [employer] on 07/08/15. Originally documented as Persistent disorder of initiating or maintaining sleep. 6Data migrated from [employer] on 07/08/15. Doing well. Originally documented as Depression, major, recurrent, in remission. 7Data migrated from [employer] on 07/08/15. The patient continues to have symptoms of cognitive impairment despite have relatively controlled depression. Originally documented as Cognitive deficit due to old cerebrovascular accident (CVA). Allergies, Adverse Reactions, Alerts Substance Reaction Severity Status penicillins1 Active sulfa drugs2 Active codeine3 Active levoFLOXacin4 Active 1Data migrated from [employer] on 07/06/16. Originally documented as penicillin. 2Data migrated from [employer] on 07/06/16. Originally documented as sulfa. 3Data migrated from [employer] on 07/06/16. Originally documented as Codeine Phosphate. 4Data migrated from [employer] on 07/06/16. Originally documented as Levaquin. Medications zolpidem 5 mg oral tablet 5 mg = 1 tab, PO, Bedtime, X 30 day, # 30 tab, 3 Refill(s), called to pharmacy Start Date: 03/14/18 Stop Date: 07/12/18 Status: Completed Results No data available for this section [...]
--- OUTSIDE RECORDS SUMMARY | 2019-11-29 17:56 | XMS REPORT | Summary of Care ---
Author Author [facility]y Organization [facility] Address Unknown Phone Unavailable Encounter DELFIN Clark(FIN) [id number] Date(s): 12/14/17 - 12/15/17 [facility] [address] [place], [place] [address] [phone] Vital Signs No data available for this [...] Restless leg Resolved syndrome(Confirmed) 1Data migrated from [employer] on 07/08/15. 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 The only VRFs discovered is a history of smoking in the past and FVLP. She developed HTN post-stroke. Originally documented as Cerebral embolism with cerebral infarction. 2Data migrated from [employer] on 07/08/15. Originally documented as Grief. 3Data migrated from [employer] on 07/08/15. The event of diffuse muscle pain was likely rhabdo related to the statin plus dehydration. Originally documented as Non-traumatic rhabdomyolysis. 4Data migrated from [employer] on 07/08/15. RT prior stroke (OBS). Originally documented as Persistent disorder of initiating or maintaining sleep. 5Data migrated from [employer] on 07/08/15. Originally documented as Persistent disorder of initiating or maintaining sleep. 6Data migrated from [employer] on 07/08/15. Doing well. Originally documented as Depression, major, recurrent, in remission. 7Data migrated from [employer] on 07/08/15. The patient continues to have symptoms of cognitive impairment despite have relatively controlled depression. Originally documented as Cognitive deficit due to old cerebrovascular accident (CVA). Allergies, Adverse Reactions, Alerts Substance Reaction Severity Status penicillins1 Active sulfa drugs2 Active codeine3 Active levoFLOXacin4 Active 1Data migrated from [employer] on 07/06/16. Originally documented as penicillin. 2Data migrated from [employer] on 07/06/16. Originally documented as sulfa. 3Data migrated from [employer] on 07/06/16. Originally documented as Codeine Phosphate. 4Data migrated from [employer] on 07/06/16. Originally documented as Levaquin. Medications [...]
--- OUTSIDE RECORDS SUMMARY | 2019-11-29 17:56 | XMS REPORT | Summary of Care ---
Author Author [facility] Organization [facility] Address Unknown Phone Unavailable Encounter DELFIN Clark(FIN) [id number] Date(s): 12/13/17 - 12/14/17 [facility] [address] [place] [phone] Vital Signs No data available for this [...] Restless leg Resolved syndrome(Confirmed) 1Data migrated from [employer] on 07/08/15. 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 The only VRFs discovered is a history of smoking in the past and FVLP. She developed HTN post-stroke. Originally documented as Cerebral embolism with cerebral infarction. 2Data migrated from [employer] on 07/08/15. Originally documented as Grief. 3Data migrated from [employer] on 07/08/15. The event of diffuse muscle pain was likely rhabdo related to the statin plus dehydration. Originally documented as Non-traumatic rhabdomyolysis. 4Data migrated from [employer] on 07/08/15. RT prior stroke (OBS). Originally documented as Persistent disorder of initiating or maintaining sleep. 5Data migrated from [employer] on 07/08/15. Originally documented as Persistent disorder of initiating or maintaining sleep. 6Data migrated from [employer] on 07/08/15. Doing well. Originally documented as Depression, major, recurrent, in remission. 7Data migrated from [employer] on 07/08/15. The patient continues to have symptoms of cognitive impairment despite have relatively controlled depression. Originally documented as Cognitive deficit due to old cerebrovascular accident (CVA). Allergies, Adverse Reactions, Alerts Substance Reaction Severity Status penicillins1 Active sulfa drugs2 Active codeine3 Active levoFLOXacin4 Active 1Data migrated from [employer] on 07/06/16. Originally documented as penicillin. 2Data migrated from [employer] on 07/06/16. Originally documented as sulfa. 3Data migrated from [employer] on 07/06/16. Originally documented as Codeine Phosphate. 4Data migrated from [employer] on 07/06/16. Originally documented as Levaquin. Medications zolpidem 5 mg oral tablet 5 mg = 1 tab, PO, Bedtime, X 90 day, # 90 tab, 0 Refill(s), called to pharmacy Start Date: 12/13/17 Stop Date: 03/13/18 Status: Ordered Results No data available for this section Immunizations No data available for this section Procedures Procedure Date Related Diagnosis Body Site Status Hysterectomy 2000 Completed Coronary heart disease monitoring Completed Suspension of bladder Completed Social History Social History Type Response Substance Abuse Use: None. Recreational Dr ug Route: Oral. Exercise Exercise frequency: Daily. Exercise [...]
--- OUTSIDE RECORDS SUMMARY | 2019-11-29 17:56 | XMS REPORT | Clinical Summary ---
Author Author [facility] Address Unknown Phone Unavailable Care Team Providers Care Full Time Paramedic Name Role Phone Emeka Jorge PCP Allergies Comments Active Allergy Reactions Severity Noted Date Codeine Hives, Nausea Low 10/30/2014 Only, Rash Severe leg cramps Levofloxacin Other (See 10/30/2014 Comments) Sulfa (Sulfonamide Anaphylaxis, High 10/30/2014 Antibiotics) Hives Medications End Date Status Medication Sig Dispensed Refills Start Date Active lisinopril Take 20 mg by 0 (PRINIVIL,ZESTRIL) 20 MG mouth 2 (two) tablet times daily. Active pravastatin (PRAVACHOL) Take 20 mg by 0 20 MG tablet mouth daily. Active zolpidem (AMBIEN) 5 MG Take 5 mg by 0 tablet mouth every night as needed for Insomnia. Active sertraline (ZOLOFT) 20 Take 16 mg by 0 mg/mL concentrated mouth daily. solution Active aspirin (ASPIR-LOW ORAL) Take by mouth 0 daily. Active docosahexanoic acid/epa Take 1,200 mg 0 (FISH OIL ORAL) by mouth 2 (two) times daily. Active cyanocobalamin (VITAMIN Take 1,000 0 B-12) 1000 MCG tablet mcg by mouth daily. Active vitamin E 400 UNIT Take 400 0 capsule Units by mouth daily. Active Lactobacillus acidophilus Take by mouth 0 (PROBIOTIC ORAL) 2 (two) times daily. Active coenzyme Q10 200 mg Take 1,000 mg 0 capsule by mouth daily. Active Problems Problem Noted Date History of loop recorder 10/13/2018 Social History Date Tobacco Use Types Packs/Day Years Used Former Smoker Smokeless Tobacco: Never Used Comments: patient cannot recall when she quit Alcohol Use Drinks/Week oz/Week Comments No Alcohol Habits Answer Date Recorded How often do you have a drink containing alcohol? Never 10/13/2018 How many drinks containing alcohol do you have on No t asked a typical day when you are drinking? How often do you have six or more drinks on one Not asked occasion? Sex Assigned at Date Recorded Not on file Industry Job Start Date Occupation Not on file Not on file Not on file Travel End Travel History Travel Start No recent travel history available. Last Filed Vital Signs Not on file Plan of Treatment Not on file Implants Device Identifier Shelf Expiration Date Model / Serial / L ot Implanted Type Area Manufactur er 06/03/2019 [id number] / [id number] / [employer] Reveal Linq Left: [employer] Implanted: Qty: 1 on 10/13/2018 by Eran Red, Chris Clifton MD Results Not on fileafter 11/28/2018 Insurance Payer Benefit Subscriber ID Type Phone Address Plan / Group [employer] - MEDICARE MGD CARE [employer] xxxxxxxx [phone] [address] [place] [address] HMO POS PPO [id number] Advance Directives For more information, please contact: [facility] [address] [place] [address] Date Inactivated Comments Code Status Date Activated 10/13/2018 3:18 PM Full Code 10/13/2018 7:08 AM This code status was determined by: Patient
--- OUTSIDE RECORDS SUMMARY | 2019-11-29 17:56 | XMS REPORT | Summary of Care ---
Author Author [facility] Organization [facility] Address Unknown Phone Unavailable Encounter DELFIN Clark(FIN) [id number] Date(s): 08/24/18 - 08/25/18 [facility] [address] [place] [phone] Vital Signs No data available for this [...] Restless leg Resolved syndrome(Confirmed) 1Data migrated from [employer] on 07/08/15. 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 The only VRFs discovered is a history of smoking in the past and FVLP. She developed HTN post-stroke. Originally documented as Cerebral embolism with cerebral infarction. 2Data migrated from [employer] on 07/08/15. Originally documented as Grief. 3Data migrated from [employer] on 07/08/15. The event of diffuse muscle pain was likely rhabdo related to the statin plus dehydration. Originally documented as Non-traumatic rhabdomyolysis. 4Data migrated from [employer] on 07/08/15. RT prior stroke (OBS). Originally documented as Persistent disorder of initiating or maintaining sleep. 5Data migrated from [employer] on 07/08/15. Originally documented as Persistent disorder of initiating or maintaining sleep. 6Data migrated from [employer] on 07/08/15. Doing well. Originally documented as Depression, major, recurrent, in remission. 7Data migrated from [employer] on 07/08/15. The patient continues to have symptoms of cognitive impairment despite have relatively controlled depression. Originally documented as Cognitive deficit due to old cerebrovascular accident (CVA). Allergies, Adverse Reactions, Alerts Substance Reaction Severity Status penicillins1 Active sulfa drugs2 Active codeine3 Active levoFLOXacin4 Active 1Data migrated from [employer] on 07/06/16. Originally documented as penicillin. 2Data migrated from [employer] on 07/06/16. Originally documented as sulfa. 3Data migrated from [employer] on 07/06/16. Originally documented as Codeine Phosphate. 4Data migrated from [employer] on 07/06/16. Originally documented as Levaquin. Medications [...]
--- OUTSIDE RECORDS SUMMARY | 2019-11-29 17:56 | XMS REPORT | Summary of Care ---
Author Author [facility] Organization [facility] Address Unknown Phone Unavailable Encounter DELFIN Clark(FIN) [id number] Date(s): 10/25/17 - 10/26/17 [facility] [address] [place] [phone] Vital Signs No data available for this [...] Restless leg Resolved syndrome(Confirmed) 1Data migrated from [employer] on 07/08/15. 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 The only VRFs discovered is a history of smoking in the past and FVLP. She developed HTN post-stroke. Originally documented as Cerebral embolism with cerebral infarction. 2Data migrated from [employer] on 07/08/15. Originally documented as Grief. 3Data migrated from [employer] on 07/08/15. The event of diffuse muscle pain was likely rhabdo related to the statin plus dehydration. Originally documented as Non-traumatic rhabdomyolysis. 4Data migrated from [employer] on 07/08/15. RT prior stroke (OBS). Originally documented as Persistent disorder of initiating or maintaining sleep. 5Data migrated from [employer] on 07/08/15. Originally documented as Persistent disorder of initiating or maintaining sleep. 6Data migrated from [employer] on 07/08/15. Doing well. Originally documented as Depression, major, recurrent, in remission. 7Data migrated from [employer] on 07/08/15. The patient continues to have symptoms of cognitive impairment despite have relatively controlled depression. Originally documented as Cognitive deficit due to old cerebrovascular accident (CVA). Allergies, Adverse Reactions, Alerts Substance Reaction Severity Status penicillins1 Active sulfa drugs2 Active codeine3 Active levoFLOXacin4 Active 1Data migrated from [employer] on 07/06/16. Originally documented as penicillin. 2Data migrated from [employer] on 07/06/16. Originally documented as sulfa. 3Data migrated from [employer] on 07/06/16. Originally documented as Codeine Phosphate. 4Data migrated from [employer] on 07/06/16. Originally documented as Levaquin. Medications sertraline 20 mg/mL oral concentrate See Instructions, # 24 unknown unit, TAKE 0.8 ML(S) BY MOUTH DAILY., Pharmacy: [facility] [address] Start Date: 10/25/17 Status: Ordered Results No data available for [...]
--- OUTSIDE RECORDS SUMMARY | 2019-11-29 17:56 | XMS REPORT | Summary of Care ---
Author Author [facility] Outpatient Imaging - [facility] Organization [facility] Outpatient Imaging - [facility] Address Unknown Phone Unavailable Encounter HQ Eduardo(FIN) [id number] Date(s): 07/05/18 - 07/05/18 [facility] Outpatient Imaging [facility] [address] [place] [phone] Encounter Diagnosis Low back pain (Final) - 07/08/18 Cough (Final) - Discharge Disposition: Home or Self Care Attending Physician: Lorena Jorge DO Referring Physician: Lorena Jorge DO Vital Signs No data available for this [...] Restless leg Resolved syndrome(Confirmed) 1Data migrated from [employer] on 07/08/15. 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 The only VRFs discovered is a history of smoking in the past and FVLP. She developed HTN post-stroke. Originally documented as Cerebral embolism with cerebral infarction. 2Data migrated from [employer] on 07/08/15. Originally documented as Grief. 3Data migrated from [employer] on 07/08/15. The event of diffuse muscle pain was likely rhabdo related to the statin plus dehydration. Originally documented as Non-traumatic rhabdomyolysis. 4Data migrated from [employer] on 07/08/15. RT prior stroke (OBS). Originally documented as Persistent disorder of initiating or maintaining sleep. 5Data migrated from [employer] on 07/08/15. Originally documented as Persistent disorder of initiating or maintaining sleep. 6Data migrated from [employer] on 07/08/15. Doing well. Originally documented as Depression, major, recurrent, in remission. 7Data migrated from [employer] on 07/08/15. The patient continues to have symptoms of cognitive impairment despite have relatively controlled depression. Originally documented as Cognitive deficit due to old cerebrovascular accident (CVA). Allergies, Adverse Reactions, Alerts Substance Reaction Severity Status penicillins1 Active sulfa drugs2 Active codeine3 Active levoFLOXacin4 Active 1Data migrated from [employer] on 07/06/16. Originally documented as penicillin. 2Data migrated from [employer] on 07/06/16. Originally documented as sulfa. 3Data migrated from [employer] on 07/06/16. Originally documented as Codeine Phosphate. 4Data migrated from [employer] on 07/06/16. Originally documented as Levaquin. Medications [...]
--- OUTSIDE RECORDS SUMMARY | 2019-11-29 17:56 | XMS REPORT ---
Author Author BEATRIZ Bradford [facility] [employer] Address Unknown Phone Unavailable Care Team Providers Care Stamping Press Operator Name Role Phone El Bradford CP Unavailable Allergies, Adverse Reactions, Alerts Substance Reaction Event Type penicillin Info Not Available Drug Allergy sulfa Info Not Available Drug Allergy Levaquin Info Not Available Drug Allergy Codeine Phosphate Info Not Available Drug Allergy Encounters Encounter Location Date f/u [place] August 28, 2014 Wants to decrease dose on Sertraline [place], [place] Aug Problems Problem Type Condition ICD-9 Code Onset [...] Start Date End Date Status D[facility]age [facility] [address]-38 20 MG/ML Orally Once a day Active .9 ml at bedtime Aspirin [facility] [address]-80 81 MG Orally Once a day A ctive 1 tablet Lisinopril [facility] [address]-99 10 mg Orally Twice a day Active 1 tablet Pravastatin Sodium [facility] [address]-51 20 MG Orally Once a day Active 1 tablet Zolpidem Tartrate [facility] [address]-46 5 MG Orally Once a day Jul 232014 Active 1 tablet at bedtime Social History [...] 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
--- OUTSIDE RECORDS SUMMARY | 2019-11-29 17:56 | XMS REPORT ---
Author Author BEATRIZ Bradford Dr. Organization [employer] Address Unknown Phone Unavailable Care Team Providers Care Support Associate Name Role Phone Dr. El Bradford CP Unavailable Encounters Encounter Location Date 6 month f/u El [place], [place] Feb 18, 2015 Zoloft Refill El Bradford [place], [place] Mar 01, 2015 Unknown El Bradford MD, [place] Jun 04, 2015 6 month f/u El Bradford [place], [place] August 21, 2015 f/u El Bradford MD, [place] August 28, 2014 Wants to decrease dose on Sertraline El Bradford MD, [place] Aug Unknown El Bradford MD, [place] December 09, 2014 6 month f/u El Bradford MD, [place] Feb 20, 2016 Neupanex?? El Bradford MD, [place] Apr 02, 2016 Problems Problem Type Condition ICD-9 Code Onset Dates Condition Statu s Problem Grief F43.20 Active Problem 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 Active Problem Non-traumatic rhabdomyolysis M62.82 Active Problem Depression, major, recurrent, in remission F33.40 Active Problem Cerebral embolism with cerebral infarction I63.40 Active Problem Cognitive deficit due to old cerebrovascular accident (CVA) I69.31 Active Social History Social History Element Qualifiers Date Reported Highest level of education completed: . High school diploma Feb 20, 2016 Tobacco Use: . Are you a: former smoker before her stroke but does not remember Feb 20, 2016 Use of recreational / street drugs? . Answer: No Feb 20, 2016 Marital Status: . Feb 20, 2016 Caffeine intake? . Status: Yes, What type: Coffee, Tea, 1 - 2 cup(s) a day Feb 20, 2016 Do you exercise? . Answer: Yes, Type: walkin g couple miles a day weather permitting Feb 20, 2016 Do you drink alcohol? . 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
--- OUTSIDE RECORDS SUMMARY | 2019-11-29 17:56 | XMS REPORT ---
Author Author BEATRIZ Bradford [facility] [employer] Address Unknown Phone Unavailable Care Team Providers Care Injector Assembler Name Role Phone El Bradford CP Unavailable Encounters Encounter Location Date 6 month f/u El Bradford [place], [place] Feb 18, 2015 Zoloft Refill El Bradford MD, [place] Mar 01, 2015 f/u El Bradford MD, [place] August [...] depressive disorder, recurrent episode, moderate 296.32 Active Medications Medication Code System Code Instructions Start Date End Date Status Dosage Zolpidem Tartrate [facility] [address]-32 5 MG Orally Once a day December 09, 2014 Active 1 tablet at bedtime [facility] [address]-63 10 mg Orally Twice a day Active 1 tablet Aspirin [facility] [address]-49 81 MG Orally Once a day A ctive 1 tablet Sertraline HCl [facility] [address]-01 20 MG/ML Orally once every nigh t Active 0.9 mls Pravastatin Sodium [facility] [address]-63 20 MG Orally Once a day Active 1 tablet Social History [...] Previously Insurance Agen t Feb 18, 2015 Summary Purpose [employer] Submission
--- OUTSIDE RECORDS SUMMARY | 2019-11-29 17:56 | XMS REPORT | Summary of Care ---
Author Author [facility] Address Unknown Phone Unavailable Encounter DELFIN Clark(GALINA) [id number] Date(s): 09/13/18 - 10/12/18 [facility] Discharge Disposition: Home or Self Care Attending Physician: Harsha Blackburn MD Vital Signs No data available for this [...] Restless leg Resolved syndrome(Confirmed) 1Data migrated from [employer] on 07/08/15. 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 The only VRFs discovered is a history of smoking in the past and FVLP. She developed HTN post-stroke. Originally documented as Cerebral embolism with cerebral infarction. 2Data migrated from [employer] on 07/08/15. Originally documented as Grief. 3Data migrated from [employer] on 07/08/15. The event of diffuse muscle pain was likely rhabdo related to the statin plus dehydration. Originally documented as Non-traumatic rhabdomyolysis. 4Data migrated from [employer] on 07/08/15. RT prior stroke (OBS). Originally documented as Persistent disorder of initiating or maintaining sleep. 5Data migrated from [employer] on 07/08/15. Originally documented as Persistent disorder of initiating or maintaining sleep. 6Data migrated from [employer] on 07/08/15. Doing well. Originally documented as Depression, major, recurrent, in remission. 7Data migrated from [employer] on 07/08/15. The patient continues to have symptoms of cognitive impairment despite have relatively controlled depression. Originally documented as Cognitive deficit due to old cerebrovascular accident (CVA). Allergies, Adverse Reactions, Alerts Substance Reaction Severity Status penicillins1 Active sulfa drugs2 Active codeine3 Active levoFLOXacin4 Active 1Data migrated from [employer] on 07/06/16. Originally documented as penicillin. 2Data migrated from [employer] on 07/06/16. Originally documented as sulfa. 3Data migrated from [employer] on 07/06/16. Originally documented as Codeine Phosphate. 4Data migrated from [employer] on 07/06/16. Originally documented as Levaquin. Medications [...]
--- OUTSIDE RECORDS SUMMARY | 2019-11-29 17:56 | XMS REPORT | Summary of Care ---
Author Author [facility] Organization [facility] Address Unknown Phone Unavailable Encounter DELFIN Clark(FIN) [id number] Date(s): 07/12/18 - 07/13/18 [facility] [address] [place] [address]- Vital Signs No data available for this [...] Restless leg Resolved syndrome(Confirmed) 1Data migrated from [email or web address] on 07/08/15. 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 The only VRFs discovered is a history of smoking in the past and FVLP. She developed HTN post-stroke. Originally documented as Cerebral embolism with cerebral infarction. 2Data migrated from [email or web address] on 07/08/15. Originally documented as Grief. 3Data migrated from [email or web address] on 07/08/15. The event of diffuse muscle pain was likely rhabdo related to the statin plus dehydration. Originally documented as Non-traumatic rhabdomyolysis. 4Data migrated from [email or web address] on 07/08/15. RT prior stroke (OBS). Originally documented as Persistent disorder of initiating or maintaining sleep. 5Data migrated from [email or web address] on 07/08/15. Originally documented as Persistent disorder of initiating or maintaining sleep. 6Data migrated from [email or web address] on 07/08/15. Doing well. Originally documented as Depression, major, recurrent, in remission. 7Data migrated from [email or web address] on 07/08/15. The patient continues to have symptoms of cognitive impairment despite have relatively controlled depression. Originally documented as Cognitive deficit due to old cerebrovascular accident (CVA). Allergies, Adverse Reactions, Alerts Substance Reaction Severity Status penicillins1 Active sulfa drugs2 Active codeine3 Active levoFLOXacin4 Active 1Data migrated from [email or web address] on 07/06/16. Originally documented as penicillin. 2Data migrated from [email or web address] on 07/06/16. Originally documented as sulfa. 3Data migrated from [email or web address] on 07/06/16. Originally documented as Codeine Phosphate. 4Data migrated from [email or web address] on 07/06/16. Originally documented as Levaquin. Medications zolpidem 5 mg oral tablet 5 mg = 1 tab, PO, Bedtime, X 30 day, # 30 tab, 3 Refill(s), called to pharmacy Start Date: 07/12/18 Stop Date: 11/09/18 Status: Completed Results No data available for [...]
--- OUTSIDE RECORDS SUMMARY | 2019-11-29 17:56 | XMS REPORT | Summary of Care ---
Author Author [facility] Organization [facility] Address Unknown Phone Unavailable Encounter DELFIN Clark(FIN) [id number] Date(s): 05/10/17 - 05/10/17 [facility] [address] [facility], [address] [place] [phone] Discharge Disposition: Home or Self Care Attending Physician: Lorena Jorge DO Vital Signs No [...] Restless leg Resolved syndrome(Confirmed) 1Data migrated from [employer] on 07/08/15. 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 The only VRFs discovered is a history of smoking in the past and FVLP. She developed HTN post-stroke. Originally documented as Cerebral embolism with cerebral infarction. 2Data migrated from [employer] on 07/08/15. Originally documented as Grief. 3Data migrated from [employer] on 07/08/15. The event of diffuse muscle pain was likely rhabdo related to the statin plus dehydration. Originally documented as Non-traumatic rhabdomyolysis. 4Data migrated from [employer] on 07/08/15. RT prior stroke (OBS). Originally documented as Persistent disorder of initiating or maintaining sleep. 5Data migrated from [employer] on 07/08/15. Originally documented as Persistent disorder of initiating or maintaining sleep. 6Data migrated from [employer] on 07/08/15. Doing well. Originally documented as Depression, major, recurrent, in remission. 7Data migrated from [employer] on 07/08/15. The patient continues to have symptoms of cognitive impairment despite have relatively controlled depression. Originally documented as Cognitive deficit due to old cerebrovascular accident (CVA). Allergies, Adverse Reactions, Alerts Substance Reaction Severity Status penicillins1 Active sulfa drugs2 Active codeine3 Active levoFLOXacin4 Active 1Data migrated from [employer] on 07/06/16. Originally documented as penicillin. 2Data migrated from [employer] on 07/06/16. Originally documented as sulfa. 3Data migrated from [employer] on 07/06/16. Originally documented as Codeine Phosphate. 4Data migrated from [employer] on 07/06/16. Originally documented as Levaquin. Medications [...]
--- OUTSIDE RECORDS SUMMARY | 2019-11-29 17:56 | XMS REPORT | Summary of Care ---
Author Author [facility] Address Unknown Phone Unavailable Encounter DELFIN Clark(FIN) [id number] Date(s): 09/20/17 - 09/21/17 [facility] [address] [place] [phone] Vital Signs No data available for this [...] Restless leg Resolved syndrome(Confirmed) 1Data migrated from [employer] on 07/08/15. 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 The only VRFs discovered is a history of smoking in the past and FVLP. She developed HTN post-stroke. Originally documented as Cerebral embolism with cerebral infarction. 2Data migrated from [employer] on 07/08/15. Originally documented as Grief. 3Data migrated from [employer] on 07/08/15. The event of diffuse muscle pain was likely rhabdo related to the statin plus dehydration. Originally documented as Non-traumatic rhabdomyolysis. 4Data migrated from [employer] on 07/08/15. RT prior stroke (OBS). Originally documented as Persistent disorder of initiating or maintaining sleep. 5Data migrated from [employer] on 07/08/15. Originally documented as Persistent disorder of initiating or maintaining sleep. 6Data migrated from [employer] on 07/08/15. Doing well. Originally documented as Depression, major, recurrent, in remission. 7Data migrated from [employer] on 07/08/15. The patient continues to have symptoms of cognitive impairment despite have relatively controlled depression. Originally documented as Cognitive deficit due to old cerebrovascular accident (CVA). Allergies, Adverse Reactions, Alerts Substance Reaction Severity Status penicillins1 Active sulfa drugs2 Active codeine3 Active levoFLOXacin4 Active 1Data migrated from [employer] on 07/06/16. Originally documented as penicillin. 2Data migrated from [employer] on 07/06/16. Originally documented as sulfa. 3Data migrated from [employer] on 07/06/16. Originally documented as Codeine Phosphate. 4Data migrated from [employer] on 07/06/16. Originally documented as Levaquin. Medications sertraline 20 mg/mL oral concentrate See Instructions, # 24 unknown unit, TAKE 0.8 ML(S) BY MOUTH DAILY., Pharmacy: [facility] Pharm[facility] [place] [address] Start Date: 09/20/17 Stop Date: 10/25/17 Status: Completed Results No data available for [...]
--- OUTSIDE RECORDS SUMMARY | 2019-11-29 17:56 | XMS REPORT ---
Author Author BEATRIZ Bradford Dr. [facility] [employer] Address Unknown Phone Unavailable Care Team Providers Care Huc Name Role Phone Dr. El Bradford CP [...] El Bradford MD, PA Jun 04, 2015 f/u El Bradford MD, [place] August 28, 2014 Wants to decrease dose on Sertraline El Bradford MD, [place] Aug Unknown El Bradford MD, PA December 09, 2014 Problems Problem Type Condition ICD-9 Code Onset Dates Condition Statu s Problem Persistent disorder of initiating or maintaining sleep 307.42 Active Problem Cerebral embolism with cerebral infarction 434.11 Active Problem 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 Active Assessment 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 Active Problem Cognitive deficits due to cerebrovascular disease 438. 0 Active Problem Major depressive disorder, recurrent episode, moderate 296.32 Active Medications Medication Code System Code Instructions Start Date End Date Status Dosage Zolpidem Tartrate [facility] [address]-09 5 MG Orally Once a day May 212014 Active 1 tablet at bedtime Sertraline HCl [facility] [address]-28 20 MG/ML Orally once every nigh t Active 0.9 mls Pravastatin Sodium [facility] [address]-08 20 MG Orally Once a day Active 1 tablet Lisinopril [facility] [address]-81 10 mg Orally Twice a day Active 1 tablet Aspirin [facility] [address]-05 81 MG Orally Once a day A ctive 1 tablet Social History Social History Element Qualifiers Date Reported Highest level of education completed: . High school diploma Jun 04, 2015 Tobacco Use: . Are you a: former smoker before her stroke but does not remember Jun 04, 2015 Use of recreational / street drugs? . Answer: No Jun 04, 2015 Marital Status: . Jun 04, 2015 Caffeine intake? . Status: Yes, What type: Coffee, Tea, 1 - 2 cup(s) a day Jun 04, 2015 Do you exercise? . Answer: Yes, Type: walkin g couple miles a day weather permitting Jun 04, 2015 Do you drink alcohol? . 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
--- OUTSIDE RECORDS SUMMARY | 2019-11-29 17:56 | XMS REPORT ---
Author Author BEATRIZ Bradford Organization [employer] Address Unknown Phone Unavailable Care Team Providers Care Animal Attendants And Trainers Name Role Phone El Bradford CP Unavailable [...] F43.20 Active Problem Non-traumatic rhabdomyolysis M62.82 Active Assessment Organic brain syndrome (chronic) F09 Active Assessment 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 Active Assessment Moderate episode of recurrent major depressive disorde r F33.1 Active Assessment Cerebral embolism with cerebral infarction I63.40 Active Assessment Cognitive deficit due to old cerebrovascular acc ident (CVA) I69.319 Active Medications Medication Code System Code Instructions Start Date End Date Status Dosage Pravastatin Sodium ND 18723191820 20 MG Orally Once a day Active 1 tablet Fish Oil ND 58381778902 1200 MG Orally Once a day A ctive 1 capsule Zolpidem Tartrate ND 82572789500 5 MG Orally Once a day Jun 04 5 Active 1 tablet at bedtime Sertraline HCl [facility] 20590403540 20 MG/ML Active ta ke 0.4ml(s) by mouth daily. BuPROPion HCl ND 10603990046 100 mg Orally Twice a day Apr 20, 2019 Active 1 tablet Vitamin E ND 84658454234 400 UNIT Orally Once a day Active 1 capsule Vitamin B12 ND 18073904710 1000 MCG Orally Once a day Active 1 tablet Aspirin ND 34673879880 81 MG Orally Once a day Acti ve 1 tablet Lisinopril [facility] 24626610001 10 mg Orally Twice a day Active 1 tablet Vital Signs Date/Time: Apr 20, 2019 BMI 42.06 Index Weight 222.6 lbs Height 61 in Cardiac Monitoring Heart Rate 56 /min Blood Pressure Diastolic 90 mm Hg Blood Pressure Systolic 126 mm Hg Results No Known Results Summary Purpose eClinicalWorks Submission
--- OUTSIDE RECORDS SUMMARY | 2019-11-29 17:56 | XMS REPORT | Summary of Care ---
Author Author [facility]CE [facility] Organization [facility] Address Unknown Phone Unavailable Encounter DELFIN Clark(FIN) [id number] Date(s): 06/09/17 - 06/10/17 [facility] [address] [place], [place] [phone] Vital Signs No data available for this [...] Restless leg Resolved syndrome(Confirmed) 1Data migrated from [email or web address] on 07/08/15. 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 The only VRFs discovered is a history of smoking in the past and FVLP. She developed HTN post-stroke. Originally documented as Cerebral embolism with cerebral infarction. 2Data migrated from [email or web address] on 07/08/15. Originally documented as Grief. 3Data migrated from [email or web address] on 07/08/15. The event of diffuse muscle pain was likely rhabdo related to the statin plus dehydration. Originally documented as Non-traumatic rhabdomyolysis. 4Data migrated from [email or web address] on 07/08/15. RT prior stroke (OBS). Originally documented as Persistent disorder of initiating or maintaining sleep. 5Data migrated from [email or web address] on 07/08/15. Originally documented as Persistent disorder of initiating or maintaining sleep. 6Data migrated from [email or web address] on 07/08/15. Doing well. Originally documented as Depression, major, recurrent, in remission. 7Data migrated from [email or web address] on 07/08/15. The patient continues to have symptoms of cognitive impairment despite have relatively controlled depression. Originally documented as Cognitive deficit due to old cerebrovascular accident (CVA). Allergies, Adverse Reactions, Alerts Substance Reaction Severity Status penicillins1 Active sulfa drugs2 Active codeine3 Active levoFLOXacin4 Active 1Data migrated from [email or web address] on 07/06/16. Originally documented as penicillin. 2Data migrated from [email or web address] on 07/06/16. Originally documented as sulfa. 3Data migrated from [email or web address] on 07/06/16. Originally documented as Codeine Phosphate. 4Data migrated from [email or web address] on 07/06/16. Originally documented as Levaquin. Medications [...]
--- OUTSIDE RECORDS SUMMARY | 2019-11-29 17:56 | XMS REPORT | Summary of Care ---
Author Author [facility] Organization [facility] Address Unknown Phone Unavailable Encounter DELFIN Clark(GALIAN) [id number] Date(s): 04/20/19 - 04/20/19 [facility] [address] [place] [address] [phone] Discharge Disposition: Home or Self Care Attending Physician: El Bradford MD Referring Physician: El Bradford MD Vital Signs No data available for [...] Restless leg Resolved syndrome(Confirmed) 1Data migrated from [employer] on 07/08/15. 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 The only VRFs discovered is a history of smoking in the past and FVLP. She developed HTN post-stroke. Originally documented as Cerebral embolism with cerebral infarction. 2Data migrated from [employer] on 07/08/15. Originally documented as Grief. 3Data migrated from [employer] on 07/08/15. The event of diffuse muscle pain was likely rhabdo related to the statin plus dehydration. Originally documented as Non-traumatic rhabdomyolysis. 4Data migrated from [employer] on 07/08/15. RT prior stroke (OBS). Originally documented as Persistent disorder of initiating or maintaining sleep. 5Data migrated from [employer] on 07/08/15. Originally documented as Persistent disorder of initiating or maintaining sleep. 6Data migrated from [employer] on 07/08/15. Doing well. Originally documented as Depression, major, recurrent, in remission. 7Data migrated from [employer] on 07/08/15. The patient continues to have symptoms of cognitive impairment despite have relatively controlled depression. Originally documented as Cognitive deficit due to old cerebrovascular accident (CVA). Allergies, Adverse Reactions, Alerts Substance Reaction Severity Status penicillins1 Active sulfa drugs2 Active codeine3 Active levoFLOXacin4 Active 1Data migrated from [employer] on 07/06/16. Originally documented as penicillin. 2Data migrated from [employer] on 07/06/16. Originally documented as sulfa. 3Data migrated from [employer] on 07/06/16. Originally documented as Codeine Phosphate. 4Data migrated from [employer] on 07/06/16. Originally documented as Levaquin. Medications No data available for this section Results No data available for this section Immunizations No data available for this section Procedures Procedure Date Related Diagnosis Body Site Status Hysterectomy 2000 Completed Coronary heart disease monitoring Completed Suspension of bladder Completed Social History Social History Type Response Alcohol Never Employment/School Status: Unemployed. Highes t education level: High school.1 Exercise Exercise frequency: Daily. Exercise type: Walking. Substance Abuse Use: None. Recreational Dr [place] Route: Oral. Smoking Status Former smoker; Exposure to Tobacco Smoke Unable to obtain; Cigarette Smoking Last 365 Days Unable to obtain; Reg Smoking Cessation Counseling No entered on: 04/20/18 1disability Assessment and Plan No data available for this section
--- OUTSIDE RECORDS SUMMARY | 2019-11-29 17:56 | XMS REPORT ---
Author Author BEATRIZ Bradford Organization [employer] Address Unknown Phone Unavailable Care Team Providers Care Aircraft Instrument Repairer Name Role Phone El Bradford CP Unavailable [...] (chronic) F09 Active Problem Grief F43.20 Active Medications No Known Medications Results No Known Results Summary Purpose [employer] Submission
--- OUTSIDE RECORDS SUMMARY | 2019-11-29 17:56 | XMS REPORT ---
Author Author BEATRIZ Bradford Organization [employer] Address Unknown Phone Unavailable Care Team Providers Care Life Scientist Name Role Phone El Bradford CP Unavailable [...]
--- OUTSIDE RECORDS SUMMARY | 2019-11-29 17:56 | XMS REPORT | Summary of Care ---
Author Author [facility] Organization [facility] Address Unknown Phone Unavailable Encounter DELFIN Clark(FIN) [id number] Date(s): 12/20/17 - 12/21/17 [facility] [address] [place] [phone] Vital Signs No data available for this [...] Restless leg Resolved syndrome(Confirmed) 1Data migrated from Qlika on 07/08/15. 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 The only VRFs discovered is a history of smoking in the past and FVLP. She developed HTN post-stroke. Originally documented as Cerebral embolism with cerebral infarction. 2Data migrated from Qlika on 07/08/15. Originally documented as Grief. 3Data migrated from Qlika on 07/08/15. The event of diffuse muscle pain was likely rhabdo related to the statin plus dehydration. Originally documented as Non-traumatic rhabdomyolysis. 4Data migrated from Qlika on 07/08/15. RT prior stroke (OBS). Originally documented as Persistent disorder of initiating or maintaining sleep. 5Data migrated from Qlika on 07/08/15. Originally documented as Persistent disorder of initiating or maintaining sleep. 6Data migrated from Qlika on 07/08/15. Doing well. Originally documented as Depression, major, recurrent, in remission. 7Data migrated from Qlika on 07/08/15. The patient continues to have symptoms of cognitive impairment despite have relatively controlled depression. Originally documented as Cognitive deficit due to old cerebrovascular accident (CVA). Allergies, Adverse Reactions, Alerts Substance Reaction Severity Status penicillins1 Active sulfa drugs2 Active codeine3 Active levoFLOXacin4 Active 1Data migrated from Qlika on 07/06/16. Originally documented as penicillin. 2Data migrated from Qlika on 07/06/16. Originally documented as sulfa. 3Data migrated from Qlika on 07/06/16. Originally documented as Codeine Phosphate. 4Data migrated from Qlika on 07/06/16. Originally documented as Levaquin. Medications sertraline 20 mg/mL oral concentrate See Instructions, # 24 unknown unit, Refill(s) 1, TAKE 0.8 ML(S) BY MOUTH DAILY. , Pharmacy: [facility] [place] #3 Start Date: 12/20/17 Status: Ordered Results No data available for [...]
--- OUTSIDE RECORDS SUMMARY | 2019-11-29 17:57 | XMS REPORT | Summary of Care ---
Author Author BEATRIZ Hernandez LVN Organization Unknown Address Unknown Phone Unavailable Care Team Providers Care Subway Conductor Name Role Phone DIA Garcia, BRIAN Unavailable Unavailable DREA D.OLeilani, CRISTI Unavailable Unavailable KADI WILKINSON [place], TRACE PACHECO Unavailable Unavailable BEVERLEY, NAT Unavailable Unavailable KADI Garcia, TRACE Unavailable Unavailable DREA [place], CRISTI Unavailable Unavailable ELIN WILKINSON, SAMSON Lin Unavailable Unavailable Unavailable Unavailable Functional Status Name Dates Details Functional status health issues are not documented Status: Name Dates Details Cognitive status health issues are not d ocumented Status: Problems Name Dates Details Flu vaccine need (V04.81, Z23) Status: Active Acute upper respiratory infection (465.9 , J06.9) Status: Active Acute bronchitis, bacterial (466.0, J20. 8) Status: Active Urinary frequency (788.41, R35.0) Status: Active Acute UTI (599.0, N39.0) Status: Active Allergic rhinitis, seasonal (477.9, J30. 2) Status: Active Cough, persistent (786.2, R05) Status: Active Acute pain of both hips (719.45, M25.551 ) Status: Active Low back pain with left-sided sciatica ( 724.3, M54.42) Status: Active Chronic sciatica, left (724.3, M54.32) Status: Active Osteoporosis (733.00, M81.0) Status: Active Essential (primary) hypertension (401.9, I10) Status: Active Anxiety (300.00, F41.9) Status: Active Chronic bilateral low back pain without sciatica (724.2, M54.5) Status: Active Medications Name Dates Details Fish Oil CAPS Active Lisinopril 20 MG Oral Tablet TAKE 1 TABLET DAILY. * Refills: 0 Active Aspirin 81 MG TABS one daily * Refills: 0 Active Vitamin B-12 TABS * Refills: 0 Active Vitamin E CAPS * Refills: 0 Active Zoloft CONC Use Pedi Dose 0.75 ML Liguid * Refills: 0 Active Fluticasone Propionate 50 MCG/ACT Nasal Suspension USE 2 SPRAYS IN EACH NOSTRIL ONCE DAILY * Quantity: 1 Refills: 5 YEH D.O., CRISTI * Start : 31-Aug-2017 Active 15.8 ML Bottle Co Q-10 400 MG Oral Capsule 2 a day * Refills: 0 * Start : 26-Apr-2018 Active Ambien 5 MG Oral Tablet * Refills: 0 Active Allergies and Adverse Reactions Name Dates Details Codeine Derivatives (Allergy) Status: Ac tive Levaquin TABS (Allergy) Status: Active Penicillins (Allergy) Status: Active Sulfa Drugs (Allergy) Status: Active Past Medical History Name Dates Details History of cerebral artery occlusion (V1 2.59, Z86.79) Status: Resolved History of Melanoma In Situ Of The Skin (V10.82) Status: Resolved History of Multiparity (V61.5, Z64.1) Status: Resolved History of Myalgia and myositis (729.1) Status: Resolved Personal history of urinary tract infect ion (V13.02, Z87.440) Status: Resolved Procedures Procedure Dates Details History of Hysterectomy Completed History of Bladder Procedures Completed History of Insertion of income tax advisor Completed Immunization Name Dates Details Influenza on: 23-Mar-2011 Boostrix 5-2.5-18.5 Intramuscular Suspen eric on: 30-Jan-2017 Fluzone Quadrivalent 0.5 ML Intramuscula r Suspension Lot #: [id number] on: 19-Apr-2017 Family History Name Dates Details Family history of Alzheimer Disease Comments: Family History Status: Active Family history of Ovarian Cancer (V16.41 ) Comments: Family History Status: Active Family history of Colon Cancer (V16.0) Comments: Family History Status: Active Social History Name Dates Details - Status: Name Dates Details Never smoked tobacco (finding) Ex-smoker (finding) Vital Signs Date Test Result Details [id number] Systolic blood pressure 116 mm[Hg] Status: Comments : Location: LUE; Position: Sitting Diastolic blood pressure 69 mm[Hg] Status: Comment s: Location: LUE; Position: Sitting Body height 65 in Status: Weight 223 lb Status: Body mass index (BMI) [Ratio] 37.11 kg/m2 Status: Body surface area Derived from formula 2.07 m2 S tatus: Body temperature 98.4 f Status: Comments: Me thod: Oral Heart Rate 64 /min Status: Results Date Description Value Details Results not documented Plan of Care Name Dates Details Planned Observations Planned Goals not documented Instructions Name Dates Details Instructions not documented Encounters Appointment; CRISTI SHEPARD D.O. Encounter Diagnosis: Problem not documented On: 03-Jan-2018 15:00 Appointment; CRISTI SHEPARD D.O. Encounter Diagnosis: Problem not documented On: 26-Apr-2018 12:30 Appointment; CRISTI SHEPARD D.O. Encounter Diagnosis: Problem not documented On: 04-Jul-2018 12:00 Appointment; CARLINE GR APRN Encounter Diagnosis: Problem not documented On: 24-Aug-2018 11:00 Appointment; NAT SOTO M.D. Encounter Diagnosis: Problem not documented On: 01-Sep-2018 9:15 Appointment; CRISTI SHEPARD D.O. Encounter Diagnosis: Problem not documented On: 25-Jul-2019 15:30 Appointment; YRIS ALVARES M.D . Encounter Diagnosis: Problem not documented On: 23-Oct-2019 13:00
--- OUTSIDE RECORDS SUMMARY | 2019-11-29 17:57 | XMS REPORT | Summary of Care ---
Author Author BEATRIZ Koenig Organization Unknown Address Unknown Phone Unavailable Care Team Providers Care Assistant Therapy Aide Name Role Phone Francheska Koenig Unavailable Unavailable LOWPATTI D.O., ADELINE Unavailable Unavailable CARLINE GR APRN Unavailable Unavailable YERadha D.O., CRISTI Unavailable Unavailable KADI WILKINSON [place], TRACE PACHECO Unavailable Unavailable BEVERLEY, NAT Unavailable Unavailable KADI Garcia, TRACE Unavailable Unavailable DREA WELL[place], CRISTI Unavailable Unavailable ELIN WILKINSON, SAMSON Lin [...] 0.75 ML Liguid * Refills: 0 Active ProAir HFA 108 (90 Base) MCG/ACT Inhalation Aerosol Solution INHALE 1 TO 2 PUFFS EVERY 4 TO 6 HOURS NEEDED. * Quantity: 1 Refills: 0 YEH D.O., CRISTI * Start : 19-Apr-2017 Active 8.5 GM Inhaler Fluticasone Propionate 50 MCG/ACT Nasal Suspension USE 2 SPRAYS IN EACH NOSTRIL ONCE DAILY * Quantity: 1 Refills: 5 YEH D.O., CRISTI * Start : 31-Aug-2017 Active 15.8 ML Bottle Montelukast Sodium 10 MG Oral Tablet TAKE ONE (1) TABLET(S) BY MOUTH DAILY. Needs appt * Quantity: 15 Refills: 0 YEH D.O.CRISTI * Start : 31-Aug-2017 Active Diclofenac Sodium 1 % Transdermal Gel APPLY SPARINGLY TO AFFECTED AREA(S) ONCE DAILY * Quantity: 1 Refills: 0 KATHIA D.OADELINE Duke * Start : 27-Sep-2017 Active 100 GM Tube Co Q-10 400 MG Oral Capsule 2 a day * Refills: 0 * Start : 26-Apr-2018 Active Fluticasone Propionate 50 MCG/ACT Nasal Suspension USE 2 SPRAYS IN EACH NOSTRIL ONCE DAILY * Quantity: 1 Refills: 1 YEH D.O.CRISTI * Start : 26-Apr-2018 Active 16 GM Bottle Promethazine-Phenylephrine 6.25-5 MG/5ML Oral Syrup TAKE 5 ML EVERY 4 TO 6 HOURS NEEDED. * Quantity: 120 Refills: 1 YEH D.O.CRISTI * Start : 04-Jul-2018 Active Nasal Allergy 24 Hour 55 MCG/ACT Nasal Aerosol INSTILL 2 PUFF DAILY * Quantity: 1 Refills: 0 YEH D.O.CRISTI * Start : 04-Jul-2018 Active 16.9 ML Bottle Gabapentin 100 MG Oral Capsule TAKE 1 CAPSULE BY MOUTH TWICE DAILY * Quantity: 60 Refills: 0 CARLINE GR APRN * Start : 24-Aug-2018 Active predniSONE 20 MG Oral Tablet TAKE 1 TABLET DAILY DIRECTED. * Quantity: 5 Refills: 0 MAILE PABLOCARLINE * Start : 24-Aug-2018 Active Allergies and Adverse Reactions Name Dates [...] Hysterectomy Completed History of Bladder Procedures Completed Immunization Name Dates Details Influenza on: 23-Mar-2011 Boostrix 5-2.5-18.5 Intramuscular Suspen eric on: 30-Jan-2017 Fluzone Quadrivalent 0.5 ML Intramuscula r Suspension Lot #: [id number] on: 19-Apr-2017 Family History Name Dates Details Family history of Alzheimer Disease Comments: Family History Status: Active Family history of Ovarian Cancer (V16.41 ) Comments: Family History Status: Active Family history of Colon Cancer (V16.0) Comments: Family History Status: Active Social History Name Dates Details - Status: Name Dates Details Never smoker Former smoker Vital Signs Date Test Result Details :34 BP Systolic 122 mm[Hg] Status: Comments: Lo cation: LUE; Position: Sitting BP Diastolic 81 mm[Hg] Status: Comments: Lo cation: LUE; Position: Sitting Height 61 in Status: Weight 220 lb Status: Body Mass Index Calculated 41.57 kg/m2 Status: Body Surface Area Calculated 1.97 m2 Status: Heart Rate 62 /min Status: Temperature 98.4 f Status: Comments: Me thod: Temporal Respiration Rate 16 /min Status: Results Date Description Value Details :14 [QH] LIPID PANEL WITH REFLEX TO DIRECT L DL CHOLESTEROL, TOTAL 204 mg/dl (Above high thresh old) Range: <200 HDL CHOLESTEROL 45 mg/dl (Below low threshold) Range: > OR = 50 TRIGLYCERIDES 146 mg/dl (Normal) Range: <150 LDL-CHOLESTEROL 133 {MG/DL__CAL} (Above high th reshold) Comments: Reference range: <100 Desirable range <100 mg/dL for primary prevention; <70 mg/dL for patients with CHD or diabetic patients with > or = 2 CHD risk factors. LDL-C is now calculated using the Ceferino calculation, which is a validated novel method providing better accuracy than the Friedewald equation in the estimation of LDL-C. Jacky ALLEN et al. JAYME. 2013;310(19): 5967-4933 (http ://ANPI.Ixsystems/faq/HMQ677) CHOL/HDLC RATIO 4.5 {CALC} (Normal) Range: <5.0 NON HDL CHOLESTEROL 159 {MG/DL__CAL} (Above hig h threshold) Range: <130 Comments: For patients with diabetes plus 1 major ASCVD risk factor, treating to a non-HDL-C goal of <100 mg/dL (LDL-C of <70 mg/dL) is considered a therapeutic option. :14 [QL] CMP W/EGFR GLUCOSE 123 mg/dl (Above high threshold ) Range: 65-99 Comments: For someone without known diabetes, a glucose valuebetween 100 and 125 mg/dL is consistent withprediabetes and should be confirmed with afollow-up test. Fasting reference interval UREA NITROGEN (BUN) 18 mg/dl (Normal) Range: 7- 25 CREATININE 0.81 mg/dl (Normal) Range: 0.50 -0.99 Comments: For patients >49 years of age, the reference limitfor Creatinine is approximately 13% higher for peopleidentified as -Maldivian. eGFR NON- 77 {ML/MIN/1.7} (Norm al) Range: > OR = 60 eGFR 89 {ML/MIN/1.7} (Normal) Range: > OR = 60 BUN/CREATININE RATIO NOT APPLICABLE {CALC} Rang e: 6-22 SODIUM 137 mmol/L (Normal) Range: 135- 146 POTASSIUM 4.3 mmol/L (Normal) Range: 3.5- 5.3 CHLORIDE 104 mmol/L (Normal) Range: 98-1 10 CARBON DIOXIDE 21 mmol/L (Normal) Range: 20-32 CALCIUM 9.1 mg/dl (Normal) Range: 8.6-1 0.4 PROTEIN, TOTAL 6.5 g/dl (Normal) Range: 6.1-8. 1 ALBUMIN 4.3 g/dl (Normal) Range: 3.6-5. 1 GLOBULIN 2.2 {G/DL__CALC} (Normal) Range : 1.9-3.7 ALBUMIN/GLOBULIN RATIO 2.0 {CALC} (Normal) Rang e: 1.0-2.5 BILIRUBIN, TOTAL 0.4 mg/dl (Normal) Range: 0.2- 1.2 ALKALINE PHSPHATASE 49 u/l (Normal) Range: 37-1 53 AST 15 u/l (Normal) Range: 10-35 ALT 27 u/l (Normal) Range: 6-:14 [[facility]] CBC (INCLUDES DIFF/PLT) WHITE BLOOD CELL COUNT 6.8 {Thousand/u} (Normal ) Range: 3.8-10.8 RED BLOOD CELL COUNT 4.52 {Million/uL} (Normal) Range: 3.80-5.10 HEMAGLOBIN 13.7 g/dl (Normal) Range: 11.7- 15.5 HEMATOCRIT 40.3 % (Normal) Range: 35.0-45. 0 MCV 89.2 fL (Normal) Range: 80.0-10 0.0 MCH 30.3 pg (Normal) Range: 27.0-33 .0 MCHC 34.0 g/dl (Normal) Range: 32.0- 36.0 RDW 12.3 % (Normal) Range: 11.0-15. 0 PLATELET COUNT 238 {Thousand/u} (Normal) Range : 140-400 MPV 9.8 fL (Normal) Range: 7.5-12.5 ABSOLUTE NEUTROPHILS 3278 {cells/uL} (Normal) R joe: [phone] ABSOLUTE LYMPHOCYTES 2781 {cells/uL} (Normal) R joe: [phone] ABSOLUTE MONOCYTES 551 {cells/uL} (Normal) Rang e: 200-950 ABSOLUTE EOSINOPHILS 150 {cells/uL} (Normal) Ra nge: 15-500 ABSOLUTE BASOPHILS 41 {cells/uL} (Normal) Range : 0-200 NEUTROPHILS 48.2 % (Normal) LYMPHOCYTES 40.9 % (Normal) MONOCYTES 8.1 % (Normal) EOSINOPHILS 2.2 % (Normal) BASOPHILS 0.6 % (Normal) 5-Feb-97750:14 [QL[facility]] TSH, 3RD GENERATION W/REFLEX TO FT 4 TSH, 3RD GENERATION W/REFLEX TO FT4 2.25 {MIU/L } (Normal) Range: 0.40-4.50 :14 [QL[facility]] VITAMIN D, 25-HYDROXY, LC/MS/MS C omments: REPORT COMMENT:FASTING:YES VITAMIN D,25-OH,TOTAL,IA 21 ng/ml (Below low th reshold) Range: 30-100 Comments: Vitamin D Status 25-OH Vitamin D: Deficiency: <20 ng/mLInsufficiency: 20 - 29 ng/mLOptimal: > or = 30 ng/mL For 25-OH Vitamin D testing on patients on D2-supplementation and patients for whom quantitation of D2 and D3 fractions is required, the QuestAssureD(TM)25-OH VIT D, (D2,D3), LC/MS/MS is recommended: order code 68702 (patients >2yrs). For more information on this test, go to:http://education.[employer]Pal [employer]/faq/CTF571(This link is being provided for informational/educational purposes only.) Plan of Care Name Dates Details Planned Observations Planned Goals not documented Planned Encounters Rheumatology Referral Appointment; YRIS ALVARES M.D . On: 18-Sep-2019 8:00 Instructions Name Dates Details Instructions not documented Encounters Appointment; ARIADNA DOWNS M.D. Encounter Diagnosis: Problem not documented On: 25-Aug-2017 11:00 Appointment; CRISTI SHEPARD D.O. Encounter Diagnosis: Problem not documented On: 31-Aug-2017 12:45 Appointment; CRISTI SHEPARD D.O. Encounter Diagnosis: Problem not documented On: 27-Sep-2017 16:00 Appointment; CRISTI SHEPARD D.O. Encounter Diagnosis: Problem [...]
--- OUTSIDE RECORDS SUMMARY | 2019-11-29 17:57 | XMS REPORT | Summary of Care ---
Author BEATRIZ Montaño M.D. Organization Unknown Address Unknown Phone Unavailable Care Team Providers Care Traffic Rate Computer Name Role Phone DREA Virgen, CRISTI Unavailable Unavailable KADI WILKINSON [place], TRACE PACHECO Unavailable Unavailable DIA WILKINSON [place], YRIS NARAYANAN Unavailable Unavailnayana LOWERY, NAT Unavailable Unavailable KADI Garcia, TRACE Unavailable Unavailable DREA WELL[place], CRISTI Unavailable Unavailable ELIN WILKINSON, SAMSON Lin [...] pain without sciatica (724.2, M54.5) Status: Active Vitamin D insufficiency (268.9, E55.9) Status: Active Medications Name Dates Details Fish Oil CAPS M.A. Active Lisinopril 20 MG Oral Tablet TAKE 1 TABLET DAILY. * Refills: 0 M.A. Active Aspirin 81 MG TABS one daily * Refills: 0 M.A. Active Vitamin B-12 TABS * Refills: 0 M.A. Active Vitamin E CAPS * Refills: 0 M.A. Active Zoloft CONC Use Pedi Dose 0.75 ML Liguid * Refills: 0 M.A. Active Fluticasone Propionate 50 MCG/ACT Nasal Suspension USE 2 SPRAYS IN EACH NOSTRIL ONCE DAILY * Quantity: 1 Refills: 5 YEH D.O., BRISSA-JONNATHAN * Start : 31-Aug-2017 Active 15.8 ML Bottle Co Q-10 400 MG Oral Capsule 2 a day * Refills: 0 M.A. * Start : 26-Apr-2018 Active Ambien 5 MG Oral Tablet * Refills: 0 M.A. Active Allergies and Adverse Reactions Name Dates [...] Z87.440) Status: Resolved Procedures Procedure Dates Details [QL] BASIC METABOLIC PANEL W/EGFR Date: 25-Oct-2019 [QL] VITAMIN D, 25-HYDROXY, LC/MS/MS Date: 25-Oct-2019 History of Hysterectomy Completed History of Bladder Procedures Completed History of Insertion of retaining room cutter Completed Immunization Name Dates Details Influenza on: 23-Mar-2011 Boostrix 5-2.5-18.5 Intramuscular Suspen eric on: 30-Jan-2017 Fluzone Quadrivalent 0.5 ML Intramuscula r Suspension Lot #: [id number] on: 19-Apr-2017 Family History Name Dates Details Family history of Alzheimer Disease Comments: Family History Status: Active Family history of Ovarian Cancer (V16.41 ) Comments: Family History Status: Active Family history of Colon Cancer (V16.0) Comments: Family History Status: Active Social History Name Dates Details - Status: Name Dates Details Never smoked tobacco (finding) Ex-smoker (finding) Vital Signs Date Test Result Details :08 Systolic blood pressure 116 mm[Hg] Status: Comments [...] /min Status: Results Date Description Value Details :46 [QL] PHOSPHATE ( PHOSPHORUS) PHOSPHATE ( PHOSPHORUS) 3.5 mg/dl (Normal) Ra nge: 2.5-4.5 :46 [QL] BASIC METABOLIC PANEL W/EGFR GLUCOSE 80 mg/dl (Normal) Range: 65-139 Comments: Non-fasting reference interval UREA NITROGEN (BUN) 19 mg/dl (Normal) Range: 7- 25 CREATININE 0.82 mg/dl (Normal) Range: 0.50 -0.99 Comments: For patients >49 years of age, the reference limitfor Creatinine is approximately 13% higher for peopleidentified as -Bhutanese. eGFR NON- 76 {ML/MIN/1.7} (Norm al) Range: > OR = 60 eGFR 88 {ML/MIN/1.7} (Normal) Range: > OR = 60 BUN/CREATININE RATIO NOT APPLICABLE {CALC} Rang e: 6-22 SODIUM 142 mmol/L (Normal) Range: 135- 146 POTASSIUM 4.3 mmol/L (Normal) Range: 3.5- 5.3 CHLORIDE 108 mmol/L (Normal) Range: 98-1 10 CARBON DIOXIDE 23 mmol/L (Normal) Range: 20-32 CALCIUM 9.4 mg/dl (Normal) Range: 8.6-1 0.4 :46 [QL] PTH, INTACT (WITHOUT CALCIUM) PARATHYROID HORMONE, INTACT 49 pg/ml (Normal) R joe: Comments: Interpretive Guide Intact PTH Calcium -------Normal Parathyroid Normal NormalHypoparathyroidism Low or Low Normal LowHyperparathyroidism Primary Normal or High High Secondary High Normal or Low Tertiary High HighNon- Parathyroid Hypercalcemia Low or Low Normal High [id number]:46 [QL] VITAMIN D, 25-HYDROXY, LC/MS/MS Co mments: REPORT COMMENT:FASTING:NO VITAMIN D,25-OH,TOTAL,IA 21 ng/ml (Below low th reshold) Range: 30-100 Comments: Vitamin D Status 25-OH Vitamin D: Deficiency: <20 ng/mLInsufficiency: 20 - 29 ng/mLOptimal: > or = 30 ng/mL For 25-OH Vitamin D testing on patients on D2-supplementation and patients for whom quantitation of D2 and D3 fractions is required, the QuestAssureD(TM)25-OH VIT D, (D2,D3), LC/MS/MS is recommended: order code 18040 (patients >2yrs).See Note 1 Note 1 For additional information, please refer to http://education.[employer]/faq/ATN028 (This link is being provided for informational/educational purposes only.) Plan of Care Name Dates Details Planned Observations [QL] BASIC METABOLIC PANEL W/EGFR Intent Comments: Approx [id number] [QL] VITAMIN D, 25-HYDROXY, LC/MS/MS Int ent Comments: Approx [id number] Planned Goals not documented Planned Encounters Appointment; YRIS MENDOZA M.D . On: 22-Oct-2020 14:00 Interventions Provided Discussion/Summary* Ms. Flores, * I have enclosed your lab results. As discussed, your kidney function and calcium is normal, but your vitamin D remains low. I do recommend daily calcium 1200mg and the vitamin D at least 2000Iu daily as you picked up. We should wait for the Reclast infusion until your vitamin D is higher. We can recheck labs in about eight weeks after starting the calcium and vitamin D. If vitamin D improved, we will submit for Reclast at that time. Please call with questions. * Thank you, * Yris Mendoza MD Instructions Name Dates Details Instructions not documented [...] not documented On: 25-Jul-2019 15:30 Appointment; YRIS MENDOZA M.D . Encounter Diagnosis: Problem not documented On: 23-Oct-2019 13:00
--- OUTSIDE RECORDS SUMMARY | 2019-11-29 17:57 | XMS REPORT | Summary of Care ---
Author Author BEATRIZ SHEPARD D.O. Organization Unknown Address Unknown Phone Unavailable Care Team Providers Care Fuse Cup Expander Name Role Phone KATHIA Virgen, ADELINE Unavailable Unavailable MAILE Rios, CARLINE Unavailable Unavailable DREA Virgen, CRISTI Unavailable Unavailable KADI WILKINSON [place], TRACE PACHECO Unavailable Unavailable BEVERLEY, NAT Unavailable Unavailable KADI Garcia, TRACE Unavailable Unavailable DREA WELLINGTON [place], CRISTI Unavailable Unavailable ELIN WILKINSON, SAMSON Lin [...] ML Liguid * Refills: 0 M.A. Active ProAir HFA 108 (90 Base) MCG/ACT Inhalation Aerosol Solution INHALE 1 TO 2 PUFFS EVERY 4 TO 6 HOURS NEEDED. * Quantity: 1 Refills: 0 YEH D.O.CRISTI * Start : 19-Apr-2017 Active 8.5 GM Inhaler Fluticasone Propionate 50 MCG/ACT Nasal Suspension USE 2 SPRAYS IN EACH NOSTRIL ONCE DAILY * Quantity: 1 Refills: 5 YEH D.O.CRISTI * Start : 31-Aug-2017 Active 15.8 ML Bottle Montelukast Sodium 10 MG Oral Tablet TAKE ONE (1) TABLET(S) BY MOUTH DAILY. Needs appt * Quantity: 15 Refills: 0 YEH D.O.CRISTI * Start : 31-Aug-2017 Active Diclofenac Sodium 1 % Transdermal Gel APPLY SPARINGLY TO AFFECTED AREA(S) ONCE DAILY * Quantity: 1 Refills: 0 ADELINE BAE D.O. * Start : 27-Sep-2017 Active 100 GM Tube Co Q-10 400 MG Oral Capsule 2 a day * Refills: 0 M.A. * Start : 26-Apr-2018 Active Fluticasone Propionate [...] TWICE DAILY * Quantity: 60 Refills: 0 GR N.P., CARLINE * Start : 24-Aug-2018 Active predniSONE 20 MG Oral Tablet TAKE 1 TABLET DAILY DIRECTED. * Quantity: 5 Refills: 0 GR N.P., CARLINE * Start : 24-Aug-2018 Active Alendronate Sodium 70 MG Oral Tablet TAKE 1 TABLET ONCE WEEKLY. * Quantity: 13 Refills: 1 YEH D.O., CRISTI * Start : 25-Jul-2019 Active Allergies and Adverse Reactions Name Dates [...] 0.5 ML Intramuscula r Suspension Lot #: [id number] on: 19-Apr-2017 Family History Name Dates Details Family history of Alzheimer Disease Comments: Family History Status: Active Family history of Ovarian Cancer (V16.41 ) Comments: Family History Status: Active Family history of Colon Cancer (V16.0) Comments: Family History Status: Active Social History Name Dates Details - Status: Name Dates Details Never smoker Former smoker Vital Signs Date Test Result Details [id number] BP Systolic 122 mm[Hg] Status: Comments: Lo [...] Status: Results Date Description Value Details :14 [Q] LIPID PANEL WITH REFLEX TO DIRECT L [...] LDL-C. Jacky ALLEN et al. JAYME. 2013;310(19): 3365-1505 (http ://education.Amartus.Dataloop.IO/faq/NWZ532) CHOL/HDLC RATIO 4.5 {CALC} (Normal) Range: <5.0 NON HDL CHOLESTEROL 159 {MG/DL__CAL} (Above hig h threshold) Range: <130 Comments: For patients with diabetes plus 1 major ASCVD risk factor, treating to a non-HDL-C goal of <100 mg/dL (LDL-C of <70 mg/dL) is considered a therapeutic option. :14 [[facility]] CMP W/EGFR GLUCOSE 123 mg/dl (Above high [...] is approximately 13% higher for peopleidentified as -Bulgarian. eGFR NON- 77 {ML/MIN/1.7} (Norm al) Range: [...] Range: 10-35 ALT 27 u/l (Normal) Range: 6-29 :14 [[facility]] CBC (INCLUDES DIFF/PLT) WHITE BLOOD CELL COUNT [...] ABSOLUTE NEUTROPHILS 3278 {cells/uL} (Normal) R joe: [phone] ABSOLUTE LYMPHOCYTES 2781 {cells/uL} (Normal) R joe: [phone] ABSOLUTE MONOCYTES 551 {cells/uL} (Normal) Rang e: 200-950 ABSOLUTE EOSINOPHILS 150 {cells/uL} (Normal) Ra nge: 15-500 ABSOLUTE BASOPHILS 41 {cells/uL} (Normal) Range : 0-200 NEUTROPHILS 48.2 % (Normal) LYMPHOCYTES 40.9 % (Normal) MONOCYTES 8.1 % (Normal) EOSINOPHILS 2.2 % (Normal) BASOPHILS 0.6 % (Normal) :14 [[facility]] TSH, 3RD GENERATION W/REFLEX TO FT [...] D, (D2,D3), LC/MS/MS is recommended: order code 83159 (patients >2yrs). For more information on this test, go to:http://education.Storyvine.Dataloop.IO/faq/TJA798(This link is being provided for informational/educational purposes only.) Plan of Care Name Dates Details Planned Observations Planned Goals not documented Interventions Provided Discussion/Summary* Vitamin D is mildly low. Reccommend 2000 IU of Vitamin D. Labs otherwise WNL. Instructions Name Dates Details Instructions not documented [...] documented On: 04-Jul-2018 12:00 Appointment; CARLINE GR NP Encounter Diagnosis: Problem not documented On: 24-Aug-2018 11:00 Appointment; NAT SOTO M.D. Encounter Diagnosis: Problem not documented On: 01-Sep-2018 9:15 Appointment; CRISTI SHEPARD D.O. Encounter Diagnosis: Problem not documented On: 25-Jul-2019 15:30
--- OUTSIDE RECORDS SUMMARY | 2019-11-29 17:57 | XMS REPORT | Summary of Care ---
Author Author BEATRIZ Plummer M.A. Organization Unknown Address [facility] Phone Unavailable Care Team Providers Care Construction Engineer Name Role Phone KATHIA Virgen, ADELINE Unavailable Unavailable CARLINE GR APRN Unavailable Unavailable DREA D.OLeilani, CRISTI Unavailable Unavailable KADI WILKINSON [place], TRACE PACHECO Unavailable Unavailable BEVERLEY, NAT Unavailable Unavailable KADI Garcia, TRACE Unavailable Unavailable DREA WELLINGTON [place], CRISTI Unavailable Unavailable ELIN WILKINSON, SAMSON Lin [...] 0.5 ML Intramuscula r Suspension Lot #: [id number] on: 19-Apr-2017 Family History Name Dates Details [...] LDL-C. Jacky ALLEN et al. JAYME. 2013;310(19): 6903-6950 (http ://AngelPrime.Roc2Loc/faq/ALB675) CHOL/HDLC RATIO 4.5 {CALC} (Normal) Range: <5.0 [...] is approximately 13% higher for peopleidentified as -Omani. eGFR NON- 77 {ML/MIN/1.7} (Norm al) Range: [...] ALT 27 u/l (Normal) Range: 6-:14 [[facility]] CBC (INCLUDES DIFF/PLT) WHITE BLOOD CELL COUNT [...] ABSOLUTE NEUTROPHILS 3278 {cells/uL} (Normal) R joe: [phone] ABSOLUTE LYMPHOCYTES 2781 {cells/uL} (Normal) R joe: [phone] ABSOLUTE MONOCYTES 551 {cells/uL} (Normal) Rang e: 200-950 ABSOLUTE EOSINOPHILS 150 {cells/uL} (Normal) Ra nge: 15-500 ABSOLUTE BASOPHILS 41 {cells/uL} (Normal) Range : 0-200 NEUTROPHILS 48.2 % (Normal) LYMPHOCYTES 40.9 % (Normal) MONOCYTES 8.1 % (Normal) EOSINOPHILS 2.2 % (Normal) BASOPHILS 0.6 % (Normal) 5-Feb-81959:14 [[facility]] TSH, 3RD GENERATION W/REFLEX TO FT [...] D, (D2,D3), LC/MS/MS is recommended: order code 33738 (patients >2yrs). For more information on this test, go to:http://education.Caarbon/faq/MSS211(This link is being provided for informational/educational purposes only.) Plan of Care Name Dates Details Planned Observations Planned Goals not documented Interventions Provided Follow-ups/Referrals* Rheumatology Referral; To Be Done: 08 Aug 2019 Instructions Name Dates Details Instructions not documented [...]
--- OUTSIDE RECORDS SUMMARY | 2019-11-29 17:57 | XMS REPORT | Summary of Care ---
Author Author [facility] Organization [facility] Address Unknown Phone Unavailable Encounter DELFIN Clark(FIN) [id number] Date(s): 11/10/18 - 11/11/18 [facility] [address] [place] [address]- Vital Signs No data available for this [...] Restless leg Resolved syndrome(Confirmed) 1Data migrated from [employer] on 07/08/15. 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 The only VRFs discovered is a history of smoking in the past and FVLP. She developed HTN post-stroke. Originally documented as Cerebral embolism with cerebral infarction. 2Data migrated from [employer] on 07/08/15. Originally documented as Grief. 3Data migrated from [employer] on 07/08/15. The event of diffuse muscle pain was likely rhabdo related to the statin plus dehydration. Originally documented as Non-traumatic rhabdomyolysis. 4Data migrated from [employer] on 07/08/15. RT prior stroke (OBS). Originally documented as Persistent disorder of initiating or maintaining sleep. 5Data migrated from [employer] on 07/08/15. Originally documented as Persistent disorder of initiating or maintaining sleep. 6Data migrated from [employer] on 07/08/15. Doing well. Originally documented as Depression, major, recurrent, in remission. 7Data migrated from [employer] on 07/08/15. The patient continues to have symptoms of cognitive impairment despite have relatively controlled depression. Originally documented as Cognitive deficit due to old cerebrovascular accident (CVA). Allergies, Adverse Reactions, Alerts Substance Reaction Severity Status penicillins1 Active sulfa drugs2 Active codeine3 Active levoFLOXacin4 Active 1Data migrated from [employer] on 07/06/16. Originally documented as penicillin. 2Data migrated from [employer] on 07/06/16. Originally documented as sulfa. 3Data migrated from [employer] on 07/06/16. Originally documented as Codeine Phosphate. 4Data migrated from [employer] on 07/06/16. Originally documented as Levaquin. [...]
--- OUTSIDE RECORDS SUMMARY | 2019-11-29 17:57 | XMS REPORT | Summary of Care ---
Author Author [facility] Organization [facility] Address Unknown Phone Unavailable Encounter DELFIN Clark(GALINA) [id number] Date(s): 06/08/19 - 06/08/19 [facility] [address] [place] [address]- Discharge Disposition: Home or Self Care Attending [...] Restless leg Resolved syndrome(Confirmed) 1Data migrated from [employer] on 07/08/15. 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 The only VRFs discovered is a history of smoking in the past and FVLP. She developed HTN post-stroke. Originally documented as Cerebral embolism with cerebral infarction. 2Data migrated from [employer] on 07/08/15. Originally documented as Grief. 3Data migrated from [employer] on 07/08/15. The event of diffuse muscle pain was likely rhabdo related to the statin plus dehydration. Originally documented as Non-traumatic rhabdomyolysis. 4Data migrated from [employer] on 07/08/15. RT prior stroke (OBS). Originally documented as Persistent disorder of initiating or maintaining sleep. 5Data migrated from [employer] on 07/08/15. Originally documented as Persistent disorder of initiating or maintaining sleep. 6Data migrated from [employer] on 07/08/15. Doing well. Originally documented as Depression, major, recurrent, in remission. 7Data migrated from [employer] on 07/08/15. The patient continues to have symptoms of cognitive impairment despite have relatively controlled depression. Originally documented as Cognitive deficit due to old cerebrovascular accident (CVA). Allergies, Adverse Reactions, Alerts Substance Reaction Severity Status penicillins1 Active sulfa drugs2 Active codeine3 Active levoFLOXacin4 Active 1Data migrated from [employer] on 07/06/16. Originally documented as penicillin. 2Data migrated from [employer] on 07/06/16. Originally documented as sulfa. 3Data migrated from [employer] on 07/06/16. Originally documented as Codeine Phosphate. 4Data migrated from [employer] on 07/06/16. Originally documented as Levaquin. Medications [...]
--- OUTSIDE RECORDS SUMMARY | 2019-11-29 17:57 | XMS REPORT | Summary of Care ---
Author Author BEATRIZ SHEPARD D.O. Organization Unknown Address Unknown Phone Unavailable Care Team Providers Care Change Management Coordinator Name Role Phone KATHIA Virgen, ADELINE Unavailable Unavailable CARLINE GR APRN Unavailable Unavailable DREA Virgen, CRISTI Unavailable Unavailable KADI WILKINSON [place], TRACE PACHECO Unavailable Unavailable BEVERLEY, NAT Unavailable Unavailable KADI Garcia, TRACE Unavailable Unavailable DREA BURROUGHS, CRISTI Unavailable Unavailable ELIN WILKINSON, SAMSON Lin [...] DAILY * Quantity: 1 Refills: 1 YEH D.O., CRISTI * Start : 26-Apr-2018 Active 16 GM [...] DAILY DIRECTED. * Quantity: 5 Refills: 0 CARLINE GR APRN * Start : 24-Aug-2018 Active Allergies and [...] 0.5 ML Intramuscula r Suspension Lot #: [id number] on: 19-Apr-2017 Family History Name Dates Details [...] equation in the estimation of LDL-C. Jacky SS et al. JAYME. 2013;310(19): 7749-9904 (http ://[employer]griChain.Oco/faq/DRQ559) CHOL/HDLC RATIO 4.5 {CALC} (Normal) Range: <5.0 NON HDL CHOLESTEROL 159 {MG/DL__CAL} (Above hig h threshold) Range: <130 Comments: For patients with diabetes plus 1 major ASCVD risk factor, treating to a non-HDL-C goal of <100 mg/dL (LDL-C of <70 mg/dL) is considered a therapeutic option. :14 [[facility]] CMP W/EGFR GLUCOSE 123 mg/dl (Above high [...] is approximately 13% higher for peopleidentified as -Ukrainian. eGFR NON- 77 {ML/MIN/1.7} (Norm al) Range: [...] ALT 27 u/l (Normal) Range: 6-29 :14 [[facility]] CBC (INCLUDES DIFF/PLT) WHITE BLOOD CELL COUNT [...] ABSOLUTE NEUTROPHILS 3278 {cells/uL} (Normal) R joe: [phone] ABSOLUTE LYMPHOCYTES 2781 {cells/uL} (Normal) R joe: [...] D, (D2,D3), LC/MS/MS is recommended: order code [id number] (patients >2yrs). For more information on this test, go to:http://education.DKT Technology/faq/HUI834(This link is being provided for informational/educational purposes only.) Plan of Care Name Dates Details Planned Observations Planned Goals not documented Planned Encounters Rheumatology Referral Instructions Name Dates Details Instructions not documented [...]
--- OUTSIDE RECORDS SUMMARY | 2019-11-29 17:57 | XMS REPORT | Summary of Care ---
Author Author [facility] Organization [facility] Address Unknown Phone Unavailable Encounter DELFIN Clark(GALINA) [id number] Date(s): 04/20/18 - 04/20/18 [facility] [address] [place] [address]- [phone] Discharge Disposition: Home or Self Care Attending Physician: El Bradford MD Vital Signs Most recent to 1 oldest [Reference Range]: Blood Pressure 122/69 mmHg [90-140/60-90 mmHg] (04/20/18 11:36 AM) Peripheral Pulse 52 bpm Rate [60-100 bpm] *LOW* (04/20/18 11:36 AM) Weight 102.443 kg (04/20/18 11:36 AM) Problem List Condition Effective Dates Status Health [...] Restless leg Resolved syndrome(Confirmed) 1Data migrated from [employer] on 07/08/15. 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 The only VRFs discovered is a history of smoking in the past and FVLP. She developed HTN post-stroke. Originally documented as Cerebral embolism with cerebral infarction. 2Data migrated from [employer] on 07/08/15. Originally documented as Grief. 3Data migrated from [employer] on 07/08/15. The event of diffuse muscle pain was likely rhabdo related to the statin plus dehydration. Originally documented as Non-traumatic rhabdomyolysis. 4Data migrated from [employer] on 07/08/15. RT prior stroke (OBS). Originally documented as Persistent disorder of initiating or maintaining sleep. 5Data migrated from [employer] on 07/08/15. Originally documented as Persistent disorder of initiating or maintaining sleep. 6Data migrated from [employer] on 07/08/15. Doing well. Originally documented as Depression, major, recurrent, in remission. 7Data migrated from [employer] on 07/08/15. The patient continues to have symptoms of cognitive impairment despite have relatively controlled depression. Originally documented as Cognitive deficit due to old cerebrovascular accident (CVA). Allergies, Adverse Reactions, Alerts Substance Reaction Severity Status penicillins1 Active sulfa drugs2 Active codeine3 Active levoFLOXacin4 Active 1Data migrated from [employer] on 07/06/16. Originally documented as penicillin. 2Data migrated from [employer] on 07/06/16. Originally documented as sulfa. 3Data migrated from [employer] on 07/06/16. Originally documented as Codeine Phosphate. 4Data migrated from [employer] on 07/06/16. Originally documented as Levaquin. Medications Fish Oil 1200 mg oral capsule 1,200 mg = 1 cap, PO, TID, 0 Refill(s) Start Date: 04/20/18 Status: Ordered Probiotic Formula PO, Daily, 0 Refill(s) Start Date: 04/20/18 Status: Ordered sertraline 20 mg/mL oral concentrate See Instructions, TAKE 0.8 ML(S) BY MOUTH DAILY., # 72 mL, 3 Refill(s), Pharmacy : [facility] [place] [facility] Start Date: 04/20/18 Status: Ordered Vitamin B12 1000 mcg oral tablet 1,000 microgram = 1 tab, PO, Daily, 0 Refill(s) Start Date: 04/20/18 Status: Ordered vitamin E 400 intl units oral capsule 400 IntlUnit = 1 cap, PO, Daily, 0 Refill(s) Start Date: 04/20/18 Status: Ordered Results No data available for [...]
--- OUTSIDE RECORDS SUMMARY | 2019-11-29 17:57 | XMS REPORT | Continuity of Care Document ---
Author Author [facility] t Organization [facility] Address [address] [place] [address] Phone Unavailable Care Team Providers Care Title Specialist Name Role Phone Luisito Emeka PCP MIKAYLA BATISTA P.A. Attphys Unavailable YRIS ALVARES M.D. Attphys Unavailnayana e CRISTI SHEPARD D.O. Attphys Unavailable Janak Bradford Attphys JOHNATHON ALONZO Attphys Unavailable Nat Soto Attphys NAT SOTO M.D. Attphys Unavailable CARLINE GR APRN Attphys Unavailable Cristi Shepard Attphys ARIADNA DOWNS M.D. Attphys Unavailable JOHNATHON ALONZO Admphys Unavailable Problems Condition Name Condition Details Condition Category Status Onset Date Resolution Date Last Treatment Date Treating Clinician Comments Source History of loop recorder History of loop recorder Disease Acti ve 2018-10-13 00:00:00 [facility] LUMBAR LUMB AR Active 03/21/2018 [facility] [place] Diagnosis Active 2018-03-21 08:00:00 2018-09-13 17:20:00 Yan Garcia J06.9 - ACUTE UPPER RESPIRATORY INFECT J06.9 - ACUTE UPPER RESPIRATORY INFECT Active 05/10/2017 Yan Garcia Diagnosis Active 2017-05-10 00:01:00 2017-05-10 13:41:00 M veronica Garcia Non-traumatic rhabdomyolysis (disorder) Non-traumatic rhabdomyolysis (disorder) Active 02/20/2016 Problem 06/11/2019 Data migrated from Jibo on 07/08/15. The event of diffuse muscle pain was likely rhabdo related to the statin plus dehydration. Originally documented as Non-traumatic rhabdomyolysis. [facility] [place], NEIL Burgos Problem Active 2016-02-20 00:00:00 2019-06-11 01:20:46 [facility] Persistent insomnia (disorder) Persistent insomnia (disorder) Active 02/20/2016 Problem 06/11/2019 Data migrated from Jibo on 07/08/15. RT prior stroke (OBS). Originally documented as Persistent disorder of initiating or maintaining sleep.Data migrated from Jibo on 07/08/15. Originally documented as Persistent disorder of initiating or maintaining sleep. [facility] [place], NEIL Burnet Problem Active 2016-02-20 00:00:00 2019-06-11 01:20:46 [facility] Recurrent major depression in remission (disorder) Recurrent major depression in remission (disorder) Active 02/20/2016 Problem 06/11/2019 Data migrated from Jibo on 07/08/15. Doing well. Originally documented as Depression, major, recurrent, in remission. 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 The patient continues to have symptoms of cognitive impairment despite have relatively controlled depression. Originally documented as Cognitive deficit due to old cerebrovascular accident (CVA). [facility] [place], SIVAKUMARTristen Burnet Problem Active 2016-02-20 00:00:00 2019-06-11 01:20:46 [facility] Embolic stroke (disorder) Embo lic stroke (disorder) Active 08/21/2015 Problem 06/11/2019 Data migrated from Jibo on 07/08/15. 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 The only VRFs discovered is a history of smoking in the past and FVLP. She developed HTN post-stroke. Originally documented as Cerebral embolism with cerebral infarction. Medical GroupIsmael FLORENTINO [place] NEIL Burgos Problem Active 2015-08-21 00:00:00 2019-06-11 01:20:46 Yan Garcia History of Melanoma In Situ Of The Skin History of Melanoma In Situ Of The Skin Problem Resolved [facility] History of Myalgia and myositis History of Myalgia and myositis Problem Resolved [facility] History of cerebral artery occlusion History of cerebral art mili occlusion Problem Resolved [facility] History of Multiparity History of Multiparity Problem Resolved [facility] Personal history of urinary tract infection Personal h istory of urinary tract infection Problem Resolved [facility] History of Acute upper respiratory infection History o f Acute upper respiratory infection Problem Resolved [facility] History of Acute bronchitis, bacterial History of Acute bron chitis, bacterial Problem Resolved [facility] Urinary frequency Urinary frequency Problem Active [facility] Acute UTI Acute UTI Problem Active [facility] History of Acute pain of both hips History of Acute pain of both hips Problem Resolved [facility] Low back pain with left-sided sciatica Low back pain with le ft-sided sciatica Problem Active [facility] Chronic sciatica, left Chronic sciatica, left Problem Active [facility] Osteoporosis Osteoporosis Problem Active [facility] Essential (primary) hypertension Essential (primary) hypertensio n Problem Active [facility] Anxiety Anxiety Problem Active [facility] Chronic bilateral low back pain without sciatica Chron ic bilateral low back pain without sciatica Problem Active [facility] Vitamin D insufficiency Vitamin D insufficiency Problem Active [facility] History of influenza vaccination History of influenza vaccinatio n Problem Resolved [facility] History of persistent cough History of persistent cough Problem Resolved [facility] History of seasonal allergies History of seasonal allergies Problem Resolved [facility] Cough Coug h 01/23/2019 NEIL Burgos Problem 2019-01-23 11:48:57 Yan Garcia Heterozygous Factor V Leiden mutation (disorder) Heterozygous Factor V Leiden mutation (disorder) Resolved Problem 06/11/2019 [facility] NEIL Burnet Problem Resolved 2019-06-11 01:20:46 Yan Garcia Hypertensive disorder, systemic arterial (disorder) Hypertensive disorder, systemic arterial (disorder) Resolved Problem 06/11/2019 [facility] [place], OPID Burnet Problem Resolved 2019-06-11 01:20:46 Yan Damonann Malignant melanoma (disorder) Malignant melanoma (disorder) Resolved Problem 06/11/2019 [facility] [place], OPID Burnet Problem Resolved 2019-06-11 01:20:46 Yan Damonann Restless legs (disorder) Rest less legs (disorder) Resolved Problem 06/11/2019 [facility] Group,[facility] [place], OPID Burnet Problem Resolved 2019-06-11 01:20:46 Mem orisumaya Garcia Hypertension Hype rtension Active 02/15/2013 [facility] Problem Active 2013-02-15 11:11:44 Marty riajc Garcia Anxiety Disorder Of Unknown (Tubac III) Etiology Anxiety Disorder Of Unknown (Tubac III) Etiology Active 02/15/2013 [facility] Problem Active 2013-02-15 11:11:44 [facility] Cerebral embolism with cerebral infarction Cerebral embolism with cerebral infarction Active Problem 06/05/2015 El Jamieson Problem Active 2015-06-05 03:00:05 [facility] Cognitive deficits due to cerebrovascular disease Cognitive deficits due to cerebrovascular disease Active Problem 08/09/2019 El Sanchez Problem Active 2019-08-09 03:00:09 Mem orisumaya Garcia Persistent disorder of initiating or maintaining sleep Persistent disorder of initiating or maintaining sleep Active Problem 06/05/2015 El Jamieson Problem Active 2015-06-05 03:00:05 Yan Garcia Major depressive disorder, recurrent episode, moderate Major depressive disorder, recurrent episode, moderate Active Problem 06/05/2015 [place] Jamieson Problem Active 2015-06-05 03:00:05 [facility] Persistent disorder of initiating or maintaining sleep Persistent disorder of initiating or maintaining sleep Active Problem 08/09/2019 [place] Jamieson Problem Active 2019-08-09 03:00:09 [facility] Depression, major, recurrent, in remission Depression, major, recurrent, in remission Active Problem 08/09/2019 El Sanchez Problem Active 2019-08-09 03:00:09 [facility] Cerebral embolism with cerebral infarction Cerebral embolism with cerebral infarction Active Problem 08/09/2019 El Shelleyum Problem Active 2019-08-09 03:00:09 [facility] Cognitive deficit due to old cerebrovascular accident (CVA) Cognitive deficit due to old cerebrovascular accident (CVA) Active Problem 08/09/2019 [place] Problem Active 2019-08-09 03:00:09 Yan Garcia 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) Active Problem 08/09/2019 [place] Sanchez Problem Active 2019-08-09 03:00:09 Yan Garcia Moderate episode of recurrent major depressive disorde r Moderate episode of recurrent major depressive disorder Active Problem 08/09/2019 El Sanchez Problem Active 2019-08-09 03:00:09 Yan Garcia Cognitive deficit due to old cerebrovascular accident (CVA) Cognitive deficit due to old cerebrovascular accident (CVA) Active Problem 08/09/2019 [place] Sanchez Problem Active 2019-08-09 03:00:09 Yan Garcia Grief Grie f Active Problem 08/09/2019 El Jamieson Problem Active 2019-08-09 03:00:09 Hernanor iajc Garcia Non-traumatic rhabdomyolysis N on-traumatic rhabdomyolysis Active Problem 08/09/2019 El Shelleyum Problem Active 2019-08-09 03:00:09 Yan Garcia Paronychia of finger of right hand Paronychia of finger of right hand Active Diagnosis 06/15/2019 El Bradford Diagnosis Active 2019-06-15 03:00:24 Yan Garcia Morbid obesity (disorder) Morb id obesity (disorder) Active Problem 06/11/2019 Medical Group,[facility] [place], OPID Burnet Problem Active 2019-06-11 01:20:46 Marty Garcia Allergies, Adverse Reactions, Alerts Allergy Name Allergy Type Status Severity Reaction(s) Onset Date Inacti ve Date Treating Clinician Comments Source Levaquin Levaquin Active Info Not Available 2019-06-08 00:00:00 Yan Garcia Codeine Phosphate Codeine Phosphate Active Info Not Av ailable 2019-06-08 00:00:00 Yan Garcia penicillin penicillin Active Info Not Available 2016-02-20 00:00:0 0 Yan Garcia sulfa sulfa Active Info Not Available 2016-02-20 00:00:00 Yan Garcia Codeine Drug Allergy Active Hives, Nausea Only, Rash 2014-10-30 00:00:00 [facility] Levofloxacin Propensity to adverse reactions Active Ot her (See Comments) 2014-10-30 00:00:00 Severe leg cramps [facility] Sulfa (Sulfonamide Antibiotics) Drug Allergy Active An aphylaxis, Hives 2014-10-30 00:00:00 [facility] penicillins<sup>1</sup> penicillins<sup>1</sup> Active 2012-12-19 05:00:00 [facility] sulfa drugs<sup>2</sup> sulfa drugs<sup>2</sup> Active 2012-12-19 05:00:00 [facility] codeine<sup>3</sup> codeine<sup>3</sup> Active 2012-12-19 0 5:00:00 [facility] levoFLOXacin<sup>4</sup> levoFLOXacin<sup>4</sup> Active 2012-12-19 05:00:00 [facility] Levaquin TABS Allergy to drug (finding) Active [facility] Penicillins Allergy to drug (finding) Active [facility] Sulfa Drugs Allergy to drug (finding) Active [facility] Sulfa Drugs Sulfa Drugs Active [facility] Penicillins Penicillins Active [facility] Codeine Derivatives Codeine Derivatives Active [facility] Levaquin TABS Levaquin TABS Active [facility] Family History Family Member Diagnosis Comments Start Date Stop Date Source Unknown Family Member Family history of Alzheimer Disease Family Hist ory [facility] Unknown Family Member Family history of Ovarian Cancer Family History [facility] Unknown Family Member Family history of Colon Cancer Family History [facility] Unknown Family Member Family History 2013-02-15 11:11:44 2 11:11:44 [facility] Social History Social Habit Start Date Stop Date Quantity Comments Source History SDOH Alcohol Std Drinks [facility] History SDOH Alcohol Binge [facility] Sex Assigned At [facility] History SDOH Alcohol Frequency 2018-10-13 00:00:00 2018-10-13 00:00:0 0 1 [facility] Tobacco Comment 2018-10-13 00:00:00 2018-10-13 00:00:00 patient cannot recall when she quit [facility] Micheline soliz Highestlevelofeducationcompleted: 2016-02-20 00:00:00 2016-02-20 00:0 0:00 Yan Garcia Social History 2013-02-15 11:11:44 2013-02-15 11:11:44 [facility] Smoking Status Start Date Stop Date Source [facility] smoked [facility]finding[facility]oker 2018-10-14 00:00:00 2018-10-14 00:00:00 [facility] Medications Ordered Medication Name Filled Medication Name Start Date Stop Da te Current Medication? Ordering Clinician Indication Dosage Frequency Signature (SIG) Comments Components Source Dexamethasone 4 MG Oral Tablet Dexamethasone 4 MG Oral Table t 2019-11-15 00:00:00 Yes MIKAYLA BATISTA P.A. Take one tablet d aily X ten days [facility] Cyclobenzaprine HCl - 5 MG Oral Tablet Cyclobenzaprine HCl - 5 MG Oral Tablet 2019-11-15 00:00:00 Yes MIKAYLA BATISTA P.A. 1 T JOSE 1 TABLET AT BEDTIME. [facility] Fish Oil 2019-06-15 03:00:24 Yes El Jamieson 1 ca psule [facility] Sertraline HCl 2019-06-15 03:00:24 Yes El Jamieson take 0.4ml(s) by mouth daily. [facility] Vitamin E 2019-06-15 03:00:24 Yes El Sanchez 1 c apsule [facility] Vitamin B12 2019-06-15 03:00:24 Yes El Jamieson 1 tablet [facility] Aspirin 2019-06-15 03:00:24 Yes El Sanchez 1 tab let [facility] Lisinopril 2019-06-15 03:00:24 Yes El Sanchez 1 tablet [facility] Zolpidem Tartrate 2019-06-15 03:00:24 Yes El Sanchez TAKE ONE (1) TABLET(S) BY MOUTH AT BEDTIME. [facility] Cephalexin 2019-06-08 00:00:00 Yes El Jamieson 1 capsule [facility] Pravastatin Sodium 2019-04-22 02:00:01 Yes El Jamieson 1 tablet [facility] BuPROPion HCl 2019-04-20 00:00:00 Yes El Sanchez 1 tablet [facility] cyanocobalamin (VITAMIN B-12) 1000 MCG tablet 2018-10-13 07:43:4 9 Yes 1000ug QD Take 1,000 mcg by mouth daily. [facility] vitamin E 400 UNIT capsule 2018-10-13 07:43:49 Yes 400U QD Take 400 Units by mouth daily. [facility] Lactobacillus acidophilus (PROBIOTIC ORAL) 2018-10-13 07:43:49 Yes Q.5D Take by mouth 2 (two) times daily. [facility] coenzyme Q10 200 mg capsule 2018-10-13 07:43:49 Yes 1000mg QD Take 1,000 mg by mouth daily. [facility] lisinopril (PRINIVIL,ZESTRIL) 20 MG tablet 2018-10-13 07:43:48 Yes 20mg Q.5D Take 20 mg by mouth 2 (two) times daily. [facility] pravastatin (PRAVACHOL) 20 MG tablet 2018-10-13 07:43:48 Ye s 20mg QD Take 20 mg by mouth daily. [facility] zolpidem (AMBIEN) 5 MG tablet 2018-10-13 07:43:48 Yes 5mg Take 5 mg by mouth every night as needed for Insomnia. [facility] sertraline (ZOLOFT) 20 mg/mL concentrated solution 2018-09 07:43:48 Yes 16mg QD Take 16 mg by mouth daily. [facility] aspirin (ASPIR-LOW ORAL) 2018-10-13 07:43:48 Yes QD Take by mouth daily. [facility] docosahexanoic acid/epa (FISH OIL ORAL) 2018-10-13 07:43:48 Yes 1200mg Q.5D Take 1,200 mg by mouth 2 (two) times daily. [facility] zolpidem 5 mg oral tablet 2018-07-12 20:41:00 No 5 mg = 1 tab, PO, Bedtime, X 30 day, # 30 tab, 3 Refill(s), called to pharmacy [facility] Co Q-10 400 MG Oral Capsule Co Q-10 400 MG Oral Capsule 2018-04-26 00:00:00 Yes 2 a day [facility] sertraline 20 mg/mL oral concentrate 2018-04-20 17:29:42 Ye s See Instructions, TAKE 0.8 ML(S) BY MOUTH DAILY., # 72 mL, 3 Refill(s), Pharmacy: [facility] Yan morales Vitamin B12 1000 mcg oral tablet 2018-04-20 16:40:00 Yes 1,000 microgram = 1 tab, PO, Daily, 0 Refill(s) Yan Garcia vitamin E 400 intl units oral capsule 2018-04-20 16:40:00 Y es 400 IntlUnit = 1 cap, PO, Daily, 0 Refill(s) Yan Garcia Probiotic Formula 2018-04-20 16:40:00 Yes PO, Daily, 0 Refill(s) Yan Garcia Fish Oil 1200 mg oral capsule 2018-04-20 16:40:00 Yes 1,200 mg = 1 cap, PO, TID, 0 Refill(s) [facility] Ethel nn zolpidem 5 mg oral tablet 2018-03-14 15:51:00 No 5 mg = 1 tab, PO, Bedtime, X 30 day, # 30 tab, 3 Refill(s), called to pharmacy [facility] Jose sertraline 20 mg/mL oral concentrate 2017-12-20 12:38:48 Ye s See Instructions, # 24 unknown unit, Refill(s) 1, TAKE 0.8 ML(S) BY MOUTH DAILY., Pharmacy: [facility] Pharm[facility] [place] #3 Olivia Garcia zolpidem 5 mg oral tablet 2017-12-13 17:12:00 Yes 5 mg = 1 tab, PO, Bedtime, X 90 day, # 90 tab, 0 Refill(s), called to pharmacy [facility] Jose sertraline 20 mg/mL oral concentrate 2017-11-22 13:02:39 Ye s See Instructions, # 24 unknown unit, TAKE 0.8 ML(S) BY MOUTH DAILY., Pharmacy: [facility] Pharmacy [facility] Jose sertraline 20 mg/mL oral concentrate 2017-10-25 12:45:00 Ye s See Instructions, # 24 unknown unit, TAKE 0.8 ML(S) BY MOUTH DAILY., Pharmacy: [facility] Pharmacy [facility] Jose sertraline 20 mg/mL oral concentrate 2017-09-20 13:53:07 No See Instructions, # 24 unknown unit, TAKE 0.8 ML(S) BY MOUTH DAILY., Pharmacy: [facility] Pharmacy [place]anc[place] #3 [facility] Fluticasone Propionate 50 MCG/ACT Nasal Suspension Flu ticasone Propionate 50 MCG/ACT Nasal Suspension 2017-08-31 00:00:00 Yes CRISTI SHEPARD D.OLeilani QD USE 2 SPRAYS IN EACH NOSTRIL ONCE DAILY [facility] Cephalexin 500 MG Oral Capsule Cephalexin 500 MG Oral Capsul e 2017-08-25 00:00:00 2019-11-22 23:59:00 No MIKAYLA BATISTA P.A. Q 12H TAKE 1 CAPSULE EVERY 12 HOURS UNTIL GONE. [facility] zolpidem 5 mg oral tablet 2017-06-09 21:05:29 Yes 5 mg = 1 tab, PO, Bedtime, X 90 day, # 90 tab, 1 Refill(s), called to pharmacy [facility] Lisinopril 2016-02-22 02:02:[address] El Bradford 1 tablet [facility] Aspirin 2016-02-22 02:02:[address] El Bradford 1 tablet [facility] Pravastatin Sodium 2016-02-22 02:02:[address] El Bradford 1 tablet [facility] Sertraline HCl 2016-02-20 00:00:[address] El Bradford 0.8 mls [facility] Sertraline HCl 2015-08-23 03:00:[address] lE Bradford 0.8 mls [facility] Zolpidem Tartrate 2015-06-04 00:00:[address] El Khalil m 1 tablet at bedtime [facility] Zolpidem Tartrate 2015-06-04 00:00:00 Yes El Bradford 1 tablet at bedtime [facility] Zoloft 2014-12-10 02:00:22 Yes El Bradford .9 ml at bedtime [facility] Zolpidem Tartrate 2014-12-09 00:00:00 Yes El Bradford 1 tablet at bedtime [facility] Zolpidem Tartrate 2014-08-14 00:00:00 Yes El Bradford 1 tablet at bedtime [facility] LORazepam 0.5 MG Oral Tablet 2013-02-15 11:11:44 Yes (Active) Yan Garcia Lexapro 10 MG Oral Tablet 2013-02-15 11:11:44 Yes (Active) Yan Garcia Fish Oil CAPS 2013-02-15 11:11:44 Yes (Acti ve) Yan Garcia Diazepam 5 MG Oral Tablet 2013-02-15 11:11:44 Yes (Active) Yan Garcia Lisinopril 20 MG Oral Tablet 2013-02-15 11:11:44 Yes (Active) Yan Garcia Pravastatin Sodium 20 MG Oral Tablet 2013-02-15 11:11:44 Ye s (Active) Yan Garcia Aspirin 81 MG Oral Tablet 2013-02-15 11:11:44 Yes (Active) Yan Garcia Vitamin B-12 TABS 2013-02-15 11:11:44 Yes ( Active) Yan Garcia Vitamin E CAPS 2013-02-15 11:11:44 Yes (Act xavi) [facility] Jose Fish Oil CAPS Fish Oil CAPS Yes [facility] Lisinopril 20 MG Oral Tablet Lisinopril 20 MG Oral Tablet Y es 1 QD TAKE 1 TABLET DAILY. [facility] Aspirin 81 MG TABS Aspirin 81 MG TABS Yes on e daily [facility] Vitamin B-12 TABS Vitamin B-12 TABS Yes [facility] Vitamin E CAPS Vitamin E CAPS Yes [facility] Zoloft CONC Zoloft CONC Yes Use Pedi Dose 0. 75 ML Liguid [facility] Ambien 5 MG Oral Tablet Ambien 5 MG Oral Tablet Yes [facility] Immunizations Ordered Immunization Name Filled Immunization Name Date Status Comments Source Fluzone Quadrivalent 0.5 ML Intramuscular Suspension 2017-04-19 14:26:00 Completed [facility] Boostrix 5-2.5-18.5 Intramuscular Suspension 2017-01-30 00 :00:00 Completed [facility] Influenza 2011-03-23 00:00:00 Completed [facility] Vital Signs Vital Name Observation Time Observation Value Comments Source Systolic blood pressure 2019-11-15 08:50:00 131 mm[Hg] Loca tion: LUE; Position: Sitting [facility] Diastolic blood pressure 2019-11-15 08:50:00 61 mm[Hg] Loc ation: LUE; Position: Sitting [facility] Body height 2019-11-15 08:50:00 65 [in_us] [facility] Weight 2019-11-15 08:50:00 217.5625 [lb_av] [facility] Body mass index (BMI) [Ratio] 2019-11-15 08:50:00 36.2 kg/m2 [facility] Body temperature 2019-11-15 08:50:00 98.2 [degF] Method: Temporal [facility] Heart Rate 2019-11-15 08:50:00 73 /min [facility] Respiratory rate 2019-11-15 08:50:00 16 /min [facility] Systolic blood pressure 2019-10-23 13:08:00 116 mm[Hg] Loca tion: LALA; Position: Sitting [facility] Diastolic blood pressure 2019-10-23 13:08:00 69 mm[Hg] Loc ation: LALA; Position: Sitting [facility] Body height 2019-10-23 13:08:00 65 [in_us] [facility] Weight 2019-10-23 13:08:00 223 [lb_av] [facility] Body mass index (BMI) [Ratio] 2019-10-23 13:08:00 37.11 kg/m2 [facility] Body temperature 2019-10-23 13:08:00 98.4 [degF] Method: Oral [facility] Heart Rate 2019-10-23 13:08:00 64 /min [facility] BP Systolic 2019-07-25 15:34:00 122 mm[Hg] Location: ITALO Positi on: Sitting [facility] BP Diastolic 2019-07-25 15:34:00 81 mm[Hg] Location: LALA; Positi on: Sitting [facility] Height 2019-07-25 15:34:00 61 [in_us] [facility] Weight 2019-07-25 15:34:00 220 [lb_av] [facility] Body Mass Index Calculated 2019-07-25 15:34:00 41.57 kg/m2 [facility] Heart Rate 2019-07-25 15:34:00 62 /min [facility] Temperature 2019-07-25 15:34:00 98.4 [degF] Method: Temporal [facility] Respiration Rate 2019-07-25 15:34:00 16 /min [facility] Weight 2019-06-08 18:40:00 [facility] Height 2019-06-08 18:40:00 [facility] Heart Rate 2019-06-08 18:40:00 [facility] Diastolic (mm Hg) 2019-06-08 18:40:00 Mem orial Jose Systolic (mm Hg) 2019-06-08 18:40:00 Marty rial [facility] Weight 2019-04-20 16:40:00 [facility] Height 2019-04-20 16:40:00 [facility] Heart Rate 2019-04-20 16:40:00 [facility] Diastolic (mm Hg) 2019-04-20 16:40:00 Mem orial Jose Systolic (mm Hg) 2019-04-20 16:40:00 Marty rial Jose BP Systolic 2018-08-24 11:13:00 137 mm[Hg] Location: LUE; Positi on: Sitting [facility] BP Diastolic 2018-08-24 11:13:00 66 mm[Hg] Location: LUE; Positi on: Sitting [facility] Height 2018-08-24 11:13:00 61 [in_us] [facility] Weight 2018-08-24 11:13:00 229.0 [lb_av] [facility] Body Mass Index Calculated 2018-08-24 11:13:00 43.27 kg/m2 [facility] Temperature 2018-08-24 11:13:00 98.2 [degF] [facility] Heart Rate 2018-08-24 11:13:00 76 /min [facility] Respiration Rate 2018-08-24 11:13:00 14 /min [facility] Weight 2018-04-20 16:36:00 [facility] Systolic (mm Hg) 2018-04-20 16:36:00 Marty [facility] Diastolic (mm Hg) 2018-04-20 16:36:00 [facility] Heart Rate 2018-04-20 16:36:00 [facility] Weight 2016-02-20 16:45:00 [facility] Height 2016-02-20 16:45:00 [facility] Heart Rate 2016-02-20 16:45:00 [facility] Diastolic (mm Hg) 2016-02-20 16:45:00 [facility] Systolic (mm Hg) 2016-02-20 16:45:00 Marty [facility] Weight 2015-08-21 16:45:00 [facility] Height 2015-08-21 16:45:00 [facility] Heart Rate 2015-08-21 16:45:00 [facility] Diastolic (mm Hg) 2015-08-21 16:45:00 [facility] Systolic (mm Hg) 2015-08-21 16:45:00 Marty [facility] Weight 2015-02-18 15:45:00 [facility] Height 2015-02-18 15:45:00 [facility] Heart Rate 2015-02-18 15:45:00 [facility] Diastolic (mm Hg) 2015-02-18 15:45:00 [facility] Systolic (mm Hg) 2015-02-18 15:45:00 Marty [facility] Weight 2014-08-28 18:45:00 [facility] Height 2014-08-28 18:45:00 [facility] Heart Rate 2014-08-28 18:45:00 [facility] Diastolic (mm Hg) 2014-08-28 18:45:00 [facility] Systolic (mm Hg) 2014-08-28 18:45:00 Marty [facility] Procedures Procedure Date / Time Performed Performing Clinician [facility] e [QL] CULTURE, URINE, ROUTINE 2019-11-15 00:00:00 [facility] [QL] BASIC METABOLIC PANEL W/EGFR 2019-10-25 00:00:00 [facility] [QL] VITAMIN D, 25-HYDROXY, LC/MS/MS 2019-10-25 00:00:00 [facility] [QH] LIPID PANEL WITH REFLEX TO DIRECT LDL 2019-07-25 00:00:00 [facility] [QL] CBC (INCLUDES DIFF/PLT) 2019-07-25 00:00:00 [facility] [QL] CMP W/EGFR 2019-07-25 00:00:00 [facility] [QL] TSH, 3RD GENERATION W/REFLEX TO FT4 2019-07-25 00:00:00 [facility] [QL] VITAMIN D, 25-HYDROXY, LC/MS/MS 2019-07-25 00:00:00 [facility] Hysterectomy 2000-06-21 00:00:00 [facility] Her bentley History of Hysterectomy [facility] of [facility] of Insertion of campus monitor [facility] Coronary heart disease monitoring [facility] [place] Suspension of bladder [facility] H ermann Plan of Care Planned Activity Planned Date Details Comments Source Future Scheduled Test [QL] BASIC METABOL IC PANEL W/EGFR [code = [QL] BASIC METABOLIC PANEL W/EGFR] Approx [id number] [facility] Future Scheduled Test [QL] VITAMIN D, 25 -HYDROXY, LC/MS/MS [code = [QL] VITAMIN D, 25-HYDROXY, LC/MS/MS] Approx [id number] [facility] Future Appointment 2020-10-22 14:00:00 Radha TORRES, [facility] Encounters Start Date/Time End Date/Time Encounter Type Admission Type [facility] Care Department Encounter ID Source 2019-11-15 08:45:00 2019-11-15 08:45:00 Appointment; MIKAYLA BATISTA P.A. CAMPOS, BERTHA, P.A. [facility], [address] [id number] [facility] 2019-10-23 13:00:00 2019-10-23 13:00:00 Appointment; YRIS ALVARES M.D. GIBSON, MARY CATHERINE, M.D. [facility], [address] [id number] [facility] 2019-08-08 07:35:00 2019-08-08 07:35:00 [facility]patient [facility] [id number] eClinicalWork s 2019-07-25 15:30:00 2019-07-25 15:30:00 Appointment; CRISTI SHEPARD D.O. YEH, SHAO-CHUN, D.O. [facility] [id number] [facility] 2019-06-08 12:40:00 2019-06-08 23:59:59 [facility] [id number] 2019-06-08 12:40:00 2019-06-08 12:40:00 Outpatient [facility] [id number] eClinicalWork s 2019-06-05 11:34:00 2019-06-05 11:34:00 Outpatient [facility] [id number] eClinicalWork s 2019-04-25 09:42:00 2019-04-25 09:42:00 Outpatient [facility] [id number] eClinicalWork s 2019-04-20 11:40:00 2019-04-20 23:59:59 Outpatient Suma Bradford MHMISCHER MHMISCHER [id number] 2019-04-20 11:40:00 2019-04-20 11:40:00 [facility] [id number] [facility] 2018-11-10 10:06:06 2018-11-11 23:59:59 Outpatient MHMIS MISHA MHMISCHER [id number] 2018-11-11 09:14:00 2018-11-11 09:14:00 [facility] [id number] [facility] 2018-[facility]-13 08:00:00 2018-10-12 23:59:00 Outpatient Nat Soto [id number] 2018-09-01 09:15:00 2018-09-01 09:15:00 Appointment; NAT SOTO M.D. LI-YUNG HING, ANDREW, M.D. [facility] [id number] [facility] 2018-08-24 13:00:00 2018-08-25 23:59:59 Outpatient MHMIS MISHA MHMISCHER [id number] 2018-08-24 11:00:00 2018-08-24 11:00:00 Appointment; CARLINE GR A PRN BECK, SHERI, APRN [facility] [id number] [facility] 2018-07-12 08:15:00 2018-07-13 23:59:59 Outpatient MHMIS MISHA MHMISCHER [id number] 2018-07-12 08:15:00 2018-07-13 23:59:59 Outpatient MHMIS MISHA MHMISCHER [id number] 2018-07-05 09:46:00 2018-07-05 23:59:00 Outpatient Marco Shepard MHOIB MHOIB [id number] 2018-07-04 12:00:00 2018-07-04 12:00:00 Appointment; CRISTI SHEPARD D.O. YEH, SHAO-CHUN, D.O. UTP UTP [id number] [facility] 2018-04-26 12:30:00 2018-04-26 12:30:00 Appointment; CRISTI SHEPARD D.O. YEH, SHAO-CHUN, D.O. UTP UTP [id number] [facility] 2018-04-20 11:45:00 2018-04-20 23:59:59 Outpatient Suma Bradford MHMISCHER MHMISCHER [id number] 2018-03-14 09:33:00 2018-03-15 23:59:59 Outpatient MHMIS MISHA MHMISCHER [id number] 2018-03-11 09:16:00 2018-03-12 23:59:59 Outpatient MHMIS MISHA MHMISCHER [id number] 2018-02-07 11:50:00 2018-02-08 23:59:59 Outpatient MHMIS MISHA MHMISCHER [id number] 2018-01-03 15:00:00 2018-01-03 15:00:00 Appointment; CRISTI SHEPARD D.O. YEH, SHAO-CHUN, D.O. UTP UTP [id number] [facility] 2017-12-20 07:37:00 2017-12-21 23:59:59 Outpatient MHMIS MISHA MHMISCHER [id number] 2017-12-14 16:28:00 2017-12-15 23:59:59 Outpatient MHMG MHMG [id number] 2017-12-13 11:17:00 2017-12-14 23:59:59 Outpatient MHMIS MISHA MHMISCHER [id number] 2017-11-22 08:01:00 2017-11-23 23:59:59 Outpatient MHMIS MISHA MHMISCHER [id number] 2017-10-25 07:44:00 2017-10-26 23:59:59 Outpatient MHMIS MISHA MHMISCHER [id number] 2017-09-27 16:00:00 2017-09-27 16:00:00 Appointment; CRISTI SHEPARD D.O. YEH, SHAO-CHUN, D.O. UTP UTP [id number] [facility] 2017-09-20 08:51:00 2017-09-21 23:59:59 Outpatient MHMIS MISHA MHMISCHER [id number] 2017-08-31 12:45:00 2017-08-31 12:45:00 Appointment; CRISTI SHEPARD D.O. YEH, SHAO-CHUN, D.O. UTP UTP [id number] [facility] 2017-08-25 11:00:00 2017-08-25 11:00:00 Appointment; ARIADNA DOWNS M.D. SATTAR, BEENA, M.D. UTP UTP [id number] [facility] 2017-06-09 12:33:00 2017-06-10 23:59:59 Outpatient MHMIS MISHA MHMISCHER [id number] 2017-06-08 17:39:00 2017-06-09 23:59:59 Outpatient MHMG MHMG [id number] 2017-05-10 13:30:00 2017-05-10 23:59:00 Outpatient Marco Shepard MHOIB MHOIB [id number] 2017-05-10 12:30:00 2017-05-10 12:30:00 Appointment; CRISTI SHEPARD D.O. YEH, SHAO-CHUN, D.O. UTP UTP [id number] [facility] 2017-04-19 14:00:00 2017-04-19 14:00:00 Appointment; CRISTI SHEPARD D.O. YEH, SHAO-CHUN, D.O. UTP UTP [id number] [facility] 2016-04-02 16:01:00 2016-04-02 16:01:00 Outpatient El Bradford MD, [place] [id number] eClinicalWorks 2016-02-20 11:45:00 2016-02-20 11:45:00 Outpatient El Bradford MD, [place] [address] eClinicalWorks 2015-08-21 10:45:00 2015-08-21 10:45:00 Outpatient El Bradford MD, [place] [id number] eClinicalWorks 2015-06-04 09:20:00 2015-06-04 09:20:00 Outpatient El Bradford MD, [place] [id number] eClinicalWorks 2015-03-01 10:28:00 2015-03-01 10:28:00 Outpatient El Bradford MD, [place] [id number] eClinicalWorks 2015-02-18 10:45:00 2015-02-18 10:45:00 Outpatient El Bradford MD, [place] [id number] eClinicalWorks 2014-12-09 20:14:00 2014-12-09 20:14:00 Outpatient [place] Bradford MD, [place] [address] eClinicalWorks 2014-08-28 13:45:00 2014-08-28 13:45:00 Outpatient El Bradford MD, [place] [id number] eClinicalWorks 2013-02-15 06:12:06 2013-02-15 06:11:44 Outpatient [facility] [id number] Results Test Description Test Time Test Comments Results Result Comments Source [O] Urine Dipstick (In Office) 2019-11-15 09:30:00 Test Item Glucose (test code = Glucose) NEGATIVE N LEUKOCYTES (test code = LEUKOCYTES) NEGATIVE N NITRITE; Normal (test code = 27220-3) NEGATIVE N UROBILINOGEN; Normal (test code = 97245-3) NEGATIVE N PROTEIN; Normal (test code = 15012-0) NEGATIVE N pH (test code = pH) 6 N URINE BLOOD; Normal (test code = 24437-9) NEGATIVE N SPECIFIC GRAVITY; Normal (test code = 2965-2) 1.010 N KETONES; Normal (test code = 44190-1) NEGATIVE N BILIRUBIN; Normal (test code = 13074-2) NEGATIVE N COLOR URINE; Normal (test code = 5778-6) YELLOW N APPEARANCE; Normal (test code = 5767-9) CLEAR N [facility][] PHOSPHATE ( PHOSPHORUS)2019-10-23 13:46:00 * Test Item Value Reference Range Interpretation Comments PHOSPHATE ( PHOSPHORUS) (test code = PHOSPHATE ( PHOSPHO CARLOTTA)) 3.5 mg/dl 2.5-4.5 N [facility][] BASIC METABOLIC PANEL [id number] 13:46:00* Test Item Value Reference Range Interpretation Comments GLUCOSE; Normal (test code = 1547-9) 80 mg/dl 65-139 N Non-fasting reference interval UREA NITROGEN (BUN) (test code = UREA NITROGEN (BUN)) 19 mg/dl 7-25 N CREATININE (test code = CREATININE) 0.82 mg/dl 0.50-0.99 N For patients >49 years of age, the reference limitfor Creatinine is approximately 13% higher for peopleidentified as -Palestinian. eGFR NON- (test code = eGFR NON-EDWIN N LAO) 76 {ML/MIN/1.7} > OR = 60 N eGFR (test code = eGFR ) 88 {ML/MIN/1.7} > OR = 60 N BUN/CREATININE RATIO (test code = BUN/CREATININE RATIO) NOT APPLICA BLE 6-22 SODIUM (test code = SODIUM) 142 mmol/L 135-146 N POTASSIUM (test code = POTASSIUM) 4.3 mmol/L 3.5-5.3 N CHLORIDE (test code = CHLORIDE) 108 mmol/L 98-110 N CARBON DIOXIDE (test code = CARBON DIOXIDE) 23 mmol/L 20-32 N CALCIUM (test code = CALCIUM) 9.4 mg/dl 8.6-10.4 N [facility][] PTH, INTACT (WITHOUT CALCIUM)2019-10-23 13:46:00* Test Item Value Reference Range Interpretation Comments PARATHYROID HORMONE, INTACT (test code = PARATHYROID HORMONE , INTACT) 49 pg/ml 14-64 N Interpretive Guide Intact PTH Calcium -------Normal Parathyroid Normal NormalHypoparathyroidism Low or Low Normal LowHyperparathyroidism Primary Normal or High High Secondary High Normal or Low Tertiary High HighNon- Parathyroid Hypercalcemia Low or Low Normal High [facility][QL] VITAMIN D, 25-HYDROXY, LC/MS/[id number] 13:46:00* Test Item Value Reference Range Interpretation Comments VITAMIN D,25-OH,TOTAL,IA (test code = VITAMIN D,25-OH,TOTAL,IA) 21 ng/ml 30-100 Vitamin D Status 25-OH Vitamin D : Deficiency: <20 ng/mLInsufficiency: 20 - 29 ng/mLOptimal: > or = 30 ng/mL For 25-OH Vitamin D testing on patients on D2-supplementation and patients for whom quantitation of D2 and D3 fractions is required, the QuestAssureD(TM)25-OH VIT D, (D2,D3), LC/MS/MS is recommended: order code 99842 (patients >2yrs).See Note 1 Note 1 For additional information, please refer to http://Repunch.Vicarious/faq/QJW137 (This link is being provided for informational/educational purposes only.) [facility][QH] LIPID PANEL WITH REFLEX TO DIRECT LDL 2019-07-26 09:14:00* Test Item Value Reference Range Interpretation Comments CHOLESTEROL, TOTAL; Above High Threshold (test code = 2093-3) 204 m g/dl <200 HDL CHOLESTEROL; Below Low Threshold (test code = 2085-9) 45 mg/dl > OR = 50 TRIGLYCERIDES; Normal (test code = 2571-8) 146 mg/dl <150 N LDL-CHOLESTEROL; Above High Threshold (test code = 07488-5) 133 {MG/DL DONALD} Reference range: <100 Desirable range <1 00 mg/dL for primary prevention; <70 mg/dL for patients with CHD or diabetic patients with > or = 2 CHD risk factors. LDL-C is now calculated using the Jacky-Nehal calculation, which is a validated novel method providing better accuracy than the Friedewald equation in the estimation of LDL-C. Jacky ALLEN et al. JAYME. 2013;310(19): 5610-9988 (http ://education.Vicarious/faq/ZKZ648) CHOL/HDLC RATIO (test code = CHOL/HDLC RATIO) 4.5 {CALC} <5.0 N NON HDL CHOLESTEROL (test code = NON HDL CHOLESTEROL) 159 {MG/DL C AL} <130 For patients with diabetes plus 1 major ASCVD risk factor, treating to a non-HDL-C goal of <100 mg/dL (LDL-C of <70 mg/dL) is considered a therapeutic option. [facility]] CMP [id number] 09:14:00* Test Item Value Reference Range Interpretation Comments GLUCOSE; Above High Threshold (test code = 1547-9) 123 mg/dl 65- 99 For someone without known diabetes, a glucose valuebetween 100 and 125 mg/dL is consistent withprediabetes and should be confirmed with afollow-up test. Fasting reference interval UREA NITROGEN (BUN) (test code = UREA NITROGEN (BUN)) 18 mg/dl 7-25 N CREATININE (test code = CREATININE) 0.81 mg/dl 0.50-0.99 N For patients >49 years of age, the reference limitfor Creatinine is approximately 13% higher for peopleidentified as -Palestinian. eGFR NON- (test code = eGFR NON-EDWIN N LAO) 77 {ML/MIN/1.7} > OR = 60 N eGFR (test code = eGFR ) 89 {ML/MIN/1.7} > OR = 60 N BUN/CREATININE RATIO (test code = BUN/CREATININE RATIO) NOT APPLICA BLE 6-22 SODIUM (test code = SODIUM) 137 mmol/L 135-146 N POTASSIUM (test code = POTASSIUM) 4.3 mmol/L 3.5-5.3 N CHLORIDE (test code = CHLORIDE) 104 mmol/L 98-110 N CARBON DIOXIDE (test code = CARBON DIOXIDE) 21 mmol/L 20-32 N CALCIUM (test code = CALCIUM) 9.1 mg/dl 8.6-10.4 N PROTEIN, TOTAL (test code = PROTEIN, TOTAL) 6.5 g/dl 6.1-8.1 N ALBUMIN (test code = ALBUMIN) 4.3 g/dl 3.6-5.1 N GLOBULIN (test code = GLOBULIN) 2.2 {G/DL CALC} 1.9-3.7 N ALBUMIN/GLOBULIN RATIO (test code = ALBUMIN/GLOBULIN RATIO) 2.0 {CALC} 1.0-2.5 N BILIRUBIN, TOTAL; Normal (test code = 97686-6) 0.4 mg/dl 0.2-1.2 N ALKALINE PHSPHATASE (test code = ALKALINE PHSPHATASE) 49 u/l 37-153 N AST; Normal (test code = 1916-6) 15 u/l 10-35 N ALT; Normal (test code = 1742-6) 27 u/l 6-29 N [facility]] CBC (INCLUDES DIFF/PLT)2019-07-26 09:14:00* Test Item Value Reference Range Interpretation Comments WHITE BLOOD CELL COUNT (test code = WHITE BLOOD CELL COUNT) 6.8 {Thousand/u} 3.8-10.8 N RED BLOOD CELL COUNT (test code = RED BLOOD CELL COUNT) 4.52 {Million/uL} 3.80-5.10 N HEMAGLOBIN; Normal (test code = 40308-0) 13.7 g/dl 11.7-15.5 N HEMATOCRIT; Normal (test code = 4544-3) 40.3 % 35.0-45.0 N MCV; Normal (test code = 787-2) 89.2 fL 80.0-100.0 N MCHC; Normal (test code = 96253-0) 34.0 g/dl 32.0-36.0 N RDW; Normal (test code = 788-0) 12.3 % 11.0-15.0 N PLATELET COUNT; Normal (test code = 777-3) 238 {Thousand/u} 140-400 N MPV; Normal (test code = 71690-5) 9.8 fL 7.5-12.5 N ABSOLUTE NEUTROPHILS (test code = ABSOLUTE NEUTROPHILS) 3278 {cells/uL} 3456-2684 N ABSOLUTE LYMPHOCYTES (test code = ABSOLUTE LYMPHOCYTES) 2781 {cells/uL} 850-3900 N ABSOLUTE MONOCYTES (test code = ABSOLUTE MONOCYTES) 551 {cells/uL} 200-950 N ABSOLUTE EOSINOPHILS (test code = ABSOLUTE EOSINOPHILS) 150 {cells/ uL} 15-500 N ABSOLUTE BASOPHILS (test code = ABSOLUTE BASOPHILS) 41 {cells/uL} 0 -200 N NEUTROPHILS (test code = NEUTROPHILS) 48.2 % N LYMPHOCYTES (test code = LYMPHOCYTES) 40.9 % N MONOCYTES; Normal (test code = 73075-1) 8.1 % N EOSINOPHILS; Normal (test code = 49388-7) 2.2 % N BASOPHILS; Normal (test code = 35539-0) 0.6 % N [facility]] TSH, 3RD GENERATION W/REFLEX TO FT4 2019-07-26 09:14:00* Test Item Value Reference Range Interpretation Comments TSH, 3RD GENERATION W/REFLEX TO FT4 (camila t code = TSH, 3RD GENERATION W/REFLEX TO FT4) 2.25 {MIU/L} 0.40-4.50 N [facility]] VITAMIN D, 25-HYDROXY, LC/MS/[id number] 09:14:00* Test Item Value Reference Range Interpretation Comments VITAMIN D,25-OH,TOTAL,IA (test code = VITAMIN D,25-OH,TOTAL,IA) 21 ng/ml 30-100 Vitamin D Status 25-OH Vitamin D : Deficiency: <20 ng/mLInsufficiency: 20 - 29 ng/mLOptimal: > or = 30 ng/mL For 25-OH Vitamin D testing on patients on D2-supplementation and patients for whom quantitation of D2 and D3 fractions is required, the QuestAssureD(TM)25-OH VIT D, (D2,D3), LC/MS/MS is recommended: order code 76174 (patients >2yrs). For more information on this test, go to:http://education.Social Rewards/faq/YAX257(This link is being provided for informational/educational purposes only.) [facility] CAD [id number] 15:06:54 - SCR MAMM BILATERAL MARILYN CAD DIGITALBILATERAL DIGITAL SCREENING MAMMOGRAM 3D/2D WITH CAD: 07/13/2019CLINICAL: Asymptomatic. Digital breast tomosynthesis was performed in addition to routine CC and MLO views. Current mammographic images were evaluated by either a [employer] M-Vu or a [employer] ImageChecker CAD (computer aided detection system). Comparison is made to exams dated 06/20/2018 mammogram, 05/25/2017 mammogram, and 04/13/2016 mammogram - [facility]-. The tissue of both breasts is predominantly fatty. There is a benign intramammary node in the right breast. No suspicious mass, architectural distortion, malignant type calcification, or lymph node abnormality detected. Breast architecture is stable compared to prior exams.IMPRESSION: BENIGNThere is no mammographic evidence of malignancy. Resume annual screening mammography in one year. Samantha shell/maria g:07/14/2019 15:06:54 Sorter Packer: Annabel Guerrero FW, [facility]-FWletter sent: BIRADS 1-2 Normal Mammogram BI-RADS: 2 BenignBASIC METABOLIC [id number] 08:51:00* Test Item Value Reference Range Interpretation Comments SODIUM (BEAKER) (test code = 381) 139 meq/L 136-145 POTASSIUM (BEAKER) (test code = 379) 4.2 meq/L 3.5-5.1 CHLORIDE (BEAKER) (test code = 382) 107 meq/L 98-107 CO2 (BEAKER) (test code = 355) 22 meq/L 22-29 BLOOD UREA NITROGEN (BEAKER) (test code = 354) 19 mg/dL 7-21 CREATININE (BEAKER) (test code = 358) 0.82 mg/dL 0.57-1.25 GLUCOSE RANDOM (BEAKER) (test code = 652) 101 mg/dL 70-105 CALCIUM (BEAKER) (test code = 697) 9.8 mg/dL 8.4-10.2 EGFR (BEAKER) (test code = 1092) 70 mL/min/1.73 sq m ESTIMATED GFR IS NOT ACCURATE CREATININE CLEARANCE IN PREDICTING GLOMERULAR FILTRATION RATE. ESTIMATED GFR IS NOT APPLICABLE FOR DIALYSIS PATIENTS. PROTHROMBIN TIME/[id number] 08:33:00* Test Item Value Reference Range Interpretation Comments PROTIME (BEAKER) (test code = 759) 13.0 seconds 11.7-14.7 INR (BEAKER) (test code = 370) 1.0 <=5.9 RECOMMENDED COUMADIN/WARFARIN INR THERAPY RANGESSTANDARD DOSE: 2.0 - 3.0 Inclu reginaldo: PROPHYLAXIS for venous thrombosis, systemic embolization; TREATMENT for ramana ous thrombosis and/or pulmonary embolus.HIGH RISK: Target INR is 2.5-3.5 for pat ients with mechanical heart valves.CBC W/PLT COUNT & AUTO [id number] 08:25:00* Test Item Value Reference Range Interpretation Comments WHITE BLOOD CELL COUNT (BEAKER) (test code = 775) 6.9 K/ L 3.5- 10.5 RED BLOOD CELL COUNT (BEAKER) (test code = 761) 4.47 M/ L 3.93-5 .22 HEMOGLOBIN (BEAKER) (test code = 410) 13.5 GM/DL 11.2-15.7 HEMATOCRIT (BEAKER) (test code = 411) 41.9 % 34.1-44.9 MEAN CORPUSCULAR VOLUME (BEAKER) (test code = 753) 93.7 fL 79. 4-94.8 MEAN CORPUSCULAR HEMOGLOBIN (BEAKER) (test code = 751) 30.2 pg 25.6-32.2 MEAN CORPUSCULAR HEMOGLOBIN CONC (BEAKER) (test code = 752) 32.2 GM/DL 32.2-35.5 RED CELL DISTRIBUTION WIDTH (BEAKER) (test code = 412) 13.6 % 11.7-14.4 PLATELET COUNT (BEAKER) (test code = 756) 209 K/CU MM 150-450 MEAN PLATELET VOLUME (BEAKER) (test code = 754) 9.1 fL 9.4-12 .3 L NUCLEATED RED BLOOD CELLS (BEAKER) (test code = 413) 0 /100 WBC 0 -0 NEUTROPHILS RELATIVE PERCENT (BEAKER) (test code = 429) 54 % LYMPHOCYTES RELATIVE PERCENT (BEAKER) (test code = 430) 36 % MONOCYTES RELATIVE PERCENT (BEAKER) (test code = 431) 8 % EOSINOPHILS RELATIVE PERCENT (BEAKER) (test code = 432) 2 % BASOPHILS RELATIVE PERCENT (BEAKER) (test code = 437) 0 % NEUTROPHILS ABSOLUTE COUNT (BEAKER) (test code = 670) 3.67 K/ L 1.56-6.13 LYMPHOCYTES ABSOLUTE COUNT (BEAKER) (test code = 414) 2.49 K/ L 1.18-3.74 MONOCYTES ABSOLUTE COUNT (BEAKER) (test code = 415) 0.53 K/ L 0. 24-0.36 H EOSINOPHILS ABSOLUTE COUNT (BEAKER) (test code = 416) 0.12 K/ L 0.04-0.36 BASOPHILS ABSOLUTE COUNT (BEAKER) (test code = 417) 0.03 K/ L 0. 01-0.08 IMMATURE GRANULOCYTES-RELATIVE PERCENT (BEAKER) (test code = 2801) 0 % 0-1 SCR MAMM BILATERAL MARILYN CAD [id number] 15:11:13 - SCR MAMM BILATERAL MARILYN CAD DIGITALBILATERAL DIGITAL SCREENING MAMMOGRAM 3D/2D WITH CAD: 06/20/2018CLINICAL: Asymptomatic. Digital breast tomosynthesis was performed in addition to routine CC and MLO views. Current mammographic images were evaluated by either a [employer] M-Vu or a [employer] ImageChecker CAD (computer aided detection system). Comparison is made to exams dated 05/25/2017 mammogram, 04/13/2016 mammogram, and 01/29/2015 mammogram - [facility]. The tissue of both breasts is predominantly fatty. There is a benign intramammary node and stable benign asymmetries in the breasts. No suspicious new mass, a rchitectural distortion, malignant type calcification, or lymph node abnormality detected. Breast architecture is stable compared to prior exams.IMPRESSION: BE NIGNThere is no mammographic evidence of malignancy. Resume annual screening constantin mography in one year. Blanco Tabor M.D. rb/:06/22/2018 15:11:13 Imag ing Technologist: Annabel Guerrero FW, [facility] sent: BIRADS 1-2 Normal Mammogram BI-RADS: 2 Benign
--- OUTSIDE RECORDS SUMMARY | 2019-11-29 17:57 | XMS REPORT | Summary of Care ---
Author Author BEATRIZ Plummer M.A. Organization Unknown Address [facility] Phone Unavailable Care Team Providers Care Mva Reactor Operator Head Name Role Phone Milana Plummer M.A. Unavailable Unavailable DREA D.OLeilani, CRISTI Unavailable Unavailable KADI WILKINSON [place], TRACE PACHECO Unavailable Unavailable DIA WILKINSON [place], YRIS NARAYANAN Unavailable Unavailnayana LOWERY, NAT Unavailable [...] Bladder Procedures Completed History of Insertion of quality assurance monitor body Completed Immunization Name Dates Details Influenza on: 23-Mar-2011 Boostrix 5-2.5-18.5 Intramuscular Suspen eric on: 30-Jan-2017 Fluzone Quadrivalent 0.5 ML Intramuscula r Suspension Lot #: [id number] on: 19-Apr-2017 Family History Name Dates Details [...] is approximately 13% higher for peopleidentified as -Afghan. eGFR NON- 76 {ML/MIN/1.7} (Norm al) Range: [...] Parathyroid Hypercalcemia Low or Low Normal High [id number]-[id number] [QL] VITAMIN D, 25-HYDROXY, LC/MS/MS Co mments: [...] D, (D2,D3), LC/MS/MS is recommended: order code 15895 (patients >2yrs).See Note 1 Note 1 For additional information, please refer to http://[email or web address].[email or web address]/faq/QGO768 (This link is being provided for informational/educational purposes only.) Plan of Care Name Dates Details Planned Observations Planned Goals not documented Planned Encounters Appointment; YRIS ALVARES M.D . On: 22-Oct-2020 14:00 Instructions Name Dates Details Instructions not documented [...]
--- OUTSIDE RECORDS SUMMARY | 2019-11-29 17:57 | XMS REPORT | Summary of Care ---
Author Author BEATRIZ SHEPARD D.O. Organization Unknown Address Unknown Phone Unavailable Care Team Providers Care Lead Die Molder Name Role Phone KATHIA Virgen, ADELINE Unavailable Unavailable MAILE Rios, CARLINE Unavailable Unavailable DREA Virgen, CRISTI Unavailable Unavailable KADI WILKINSON [place], TRACE PACHECO Unavailable Unavailable BEVERLEY, NAT Unavailable Unavailable KADI Garcia, TRACE Unavailable Unavailable DREA WELL[place], CRISTI Unavailable Unavailable ELIN WILKINSON, SAMSON Lin Unavailable Unavailable Unavailable Unavailable Functional Status Name Dates Details Functional status health issues are not documented Status: Name Dates Details Cognitive status health issues are not d ocumented Status: Problems Name Dates Details Flu vaccine need (V04.81, Z23) Status: Active Low back pain with left-sided sciatica ( 724.3, M54.42) Status: Active Acute pain of both hips (719.45, M25.551 ) Status: Active Urinary frequency (788.41, R35.0) Status: Active Chronic bilateral low back pain without sciatica (724.2, M54.5) Status: Active Cough, persistent (786.2, R05) Status: Active Acute upper respiratory infection (465.9 , J06.9) Status: Active Essential (primary) hypertension (401.9, I10) Status: Active Osteoporosis (733.00, M81.0) Status: Active Anxiety (300.00, F41.9) Status: Active Acute UTI (599.0, N39.0) Status: Active Allergic rhinitis, seasonal (477.9, J30. 2) Status: Active Acute bronchitis, bacterial (466.0, J20. 8) Status: Active Chronic sciatica, left (724.3, M54.32) Status: Active Medications Name Dates Details Fish [...] appt * Quantity: 15 Refills: 0 YEH D.O., CRISTI * Start : 31-Aug-2017 Active Diclofenac Sodium 1 % Transdermal Gel APPLY SPARINGLY TO AFFECTED AREA(S) ONCE DAILY * Quantity: 1 Refills: 0 KATHIA D.ADELINE Napoles * Start : 27-Sep-2017 Active 100 GM [...] TWICE DAILY * Quantity: 60 Refills: 0 MAILE N.P., CARLINE * Start : 24-Aug-2018 Active predniSONE 20 MG Oral Tablet TAKE 1 TABLET DAILY DIRECTED. * Quantity: 5 Refills: 0 MAILE N.P., CARLINE * Start : 24-Aug-2018 Active Alendronate Sodium 70 MG Oral Tablet TAKE 1 TABLET ONCE WEEKLY. * Quantity: 13 Refills: 1 DREA D.OCRISTI [facility] * Start : 25-Jul-2019 Active Allergies and [...] Z87.440) Status: Resolved Procedures Procedure Dates Details [QH] LIPID PANEL WITH REFLEX TO DIRECT LDL Date: 25-Jul-2019 [QLH] CBC (INCLUDES DIFF/PLT) Date: 25-Jul-2019 [QLH] CMP W/EGFR Date: 25-Jul-2019 [QLH] TSH, 3RD GENERATION W/REFLEX TO FT4 Date: 25-Jul-2019 [QLH] VITAMIN D, 25-HYDROXY, LC/MS/MS Date: 25-Jul-2019 History of Bladder Procedures Completed History of Hysterectomy Completed Immunization Name Dates Details Influenza on: 23-Mar-2011 Boostrix 5-2.5-18.5 Intramuscular Suspen eric on: 30-Jan-2017 Fluzone Quadrivalent 0.5 ML Intramuscula r Suspension Lot #: [id number] on: 19-Apr-2017 Family History Name Dates Details Family history of Alzheimer Disease Comments: Family History Status: Active Family history of Colon Cancer (V16.0) Comments: Family History Status: Active Family history of Ovarian Cancer (V16.41 ) Comments: Family History Status: Active Social History Name Dates Details - Status: Name Dates Details Never smoker Former smoker Vital Signs Date Test Result Details 3-Cpr-[id number]:34 BP Systolic 122 mm[Hg] Status: Comments: Lo [...] Observations Planned Goals not documented Interventions Provided Medication Changes* Alendronate Sodium 70 MG Oral Tablet - Start Labs/Procedures/Imaging* [QH] LIPID PANEL WITH REFLEX TO DIRECT LDL; To Be Done: 25 Jul 2019 * [QLH] CBC (INCLUDES DIFF/PLT); To Be Done: 25 Jul 2019 * [QLH] CMP W/EGFR; To Be Done: 25 Jul 2019 * [QLH] TSH, 3RD GENERATION W/REFLEX TO FT4; To Be Done: 25 Jul 2019 * [QLH] VITAMIN D, 25-HYDROXY, LC/MS/MS; To Be Done: 25 Jul 2019 Plan* Osteoporosis - New. Start Alendronate QWeekly. Discussed that it should be taken 1/2 hour before everything else. Discussed 2000 IU of Vitamin D recommended. Start Calcium 1800 mg per day in divided doses. * HTN - stable. Continue Lisinopril * HLD - stable. Check Lipids. Pt D/C'd pravastatin and reports improvement in myalgia * Obtain labs as ordered * Follow-up as needed or at next regular visit Instructions Name Dates Details Instructions not documented [...]
--- OUTSIDE RECORDS SUMMARY | 2019-11-29 17:57 | XMS REPORT | Summary of Care ---
Author Author BEATRIZ SHEPARD D.O. Organization Unknown Address Unknown Phone Unavailable Care Team Providers Care Acid Loader Name Role Phone KATHIA Virgen, ADELINE Unavailable Unavailable MAILE Marie.Pascual, CARLINE Unavailable Unavailable DREA Virgen, CRISTI Unavailable Unavailable KADI WILKINSON [place], TRACE PACHECO Unavailable Unavailable BEVERLEY, NAT Unavailable Unavailable KADI Garcia, TRACE Unavailable Unavailable DREA WELL[place], CRISTI Unavailable Unavailable ELIN WILKINSON, SAMSON Lin [...] bronchitis, bacterial (466.0, J20. 8) Status: Active Anxiety (300.00, F41.9) Status: Active Urinary frequency (788.41, R35.0) Status: Active Acute UTI (599.0, N39.0) Status: Active Myalgia and myositis (729.1) Status: Active Essential (primary) hypertension (401.9, I10) Status: Active Allergic rhinitis, seasonal (477.9, J30. 2) Status: Active Chronic bilateral low back pain [...] 1 TABLET DAILY. * Refills: 0 Active Pravastatin Sodium 20 MG Oral Tablet TAKE 1 TABLET [...] N.P., CARLINE * Start : 24-Aug-2018 Active Allergies and [...] History of Multiparity (V61.5, Z64.1) Status: Resolved Personal history of urinary tract infect ion (V13.02, Z87.440) Status: Resolved Procedures Procedure Dates Details History of Hysterectomy Completed History of Bladder Procedures Completed Immunization Name Dates Details Influenza on: 23-Mar-2011 Boostrix 5-2.5-18.5 Intramuscular Suspen eric on: 30-Jan-2017 Fluzone Quadrivalent 0.5 ML Intramuscula r Suspension Lot #: [id number] on: 19-Apr-2017 Family History Name Dates Details Family history of Alzheimer Disease Comments: Family History Status: Active Family history of Ovarian Cancer (V16.41 ) Comments: Family History Status: Active Family history of Colon Cancer (V16.0) Comments: Family History Status: Active Social History Name Dates Details - Status: Name Dates Details Never smoker Former smoker Vital Signs Date Test Result Details No Known Vitals to report Results Date Description Value Details Results not documented Plan of Care Name Dates Details Planned Observations Planned Goals not documented Interventions Provided Medication Changes* Montelukast Sodium 10 MG Oral Tablet - Renew Instructions Name Dates Details Instructions not documented Encounters Appointment; CRISTI SHEPARD D.O. Encounter Diagnosis: Problem not documented On: 19-Apr-2017 14:00 Appointment; CRISTI SHEPARD D.O. Encounter Diagnosis: Problem not documented On: 10-May-2017 12:30 Appointment; ARIADNA DOWNS M.D. Encounter Diagnosis: Problem [...]
--- OUTSIDE RECORDS SUMMARY | 2019-11-29 17:57 | XMS REPORT | Summary of Care ---
Author Author [facility] Organization [facility] Address Unknown Phone Unavailable Encounter DELFIN Clark(FIN) [id number] Date(s): 07/12/18 - 07/13/18 [facility] [address] [place] [phone] Vital Signs No data available for this [...] Restless leg Resolved syndrome(Confirmed) 1Data migrated from [employer] on 07/08/15. 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 The only VRFs discovered is a history of smoking in the past and FVLP. She developed HTN post-stroke. Originally documented as Cerebral embolism with cerebral infarction. 2Data migrated from [employer] on 07/08/15. Originally documented as Grief. 3Data migrated from [employer] on 07/08/15. The event of diffuse muscle pain was likely rhabdo related to the statin plus dehydration. Originally documented as Non-traumatic rhabdomyolysis. 4Data migrated from [employer] on 07/08/15. RT prior stroke (OBS). Originally documented as Persistent disorder of initiating or maintaining sleep. 5Data migrated from [employer] on 07/08/15. Originally documented as Persistent disorder of initiating or maintaining sleep. 6Data migrated from [employer] on 07/08/15. Doing well. Originally documented as Depression, major, recurrent, in remission. 7Data migrated from [employer] on 07/08/15. The patient continues to have symptoms of cognitive impairment despite have relatively controlled depression. Originally documented as Cognitive deficit due to old cerebrovascular accident (CVA). Allergies, Adverse Reactions, Alerts Substance Reaction Severity Status penicillins1 Active sulfa drugs2 Active codeine3 Active levoFLOXacin4 Active 1Data migrated from [employer] on 07/06/16. Originally documented as penicillin. 2Data migrated from [employer] on 07/06/16. Originally documented as sulfa. 3Data migrated from [employer] on 07/06/16. Originally documented as Codeine Phosphate. 4Data migrated from [employer] on 07/06/16. Originally documented as Levaquin. Medications zolpidem 5 mg oral tablet 5 mg = 1 tab, PO, Bedtime, X 30 day, # 30 tab, 3 Refill(s), called to pharmacy Start Date: 07/12/18 Stop Date: 11/09/18 Status: Ordered Results No data available for [...]
--- OUTSIDE RECORDS SUMMARY | 2019-11-29 17:57 | XMS REPORT | Summary of Care ---
Author BEATRIZ Hernández M.A. Organization Unknown Address [facility] Phone Unavailable Care Team Providers Care Technical Recruiter Name Role Phone Jose D Truong M.A. Unavailable Unavailable DEON-ANNIE D.O., ADELINE Unavailable Unavailable GR N.P., CARLINE Unavailable Unavailable DREA D.O., CRISTI Unavailable Unavailable KADI WILKINSON [place], TRACE PACHECO Unavailable Unavailable BEVERLEY, NAT Unavailable [...] bronchitis, bacterial (466.0, J20. 8) Status: Active Acute UTI (599.0, N39.0) Status: Active Urinary frequency (788.41, R35.0) Status: Active Allergic rhinitis, seasonal (477.9, J30. [...] DIRECTED. * Quantity: 5 Refills: 0 GR N.P.CARLINE * Start : 24-Aug-2018 Active Alendronate Sodium 70 MG Oral Tablet TAKE 1 TABLET ONCE WEEKLY. * Quantity: 13 Refills: 1 YEH D.O.CRISTI * Start : 25-Jul-2019 Active Allergies and [...] 0.5 ML Intramuscula r Suspension Lot #: [id number] on: 19-Apr-2017 Family History Name Dates Details Family history of Alzheimer Disease Comments: Family History Status: Active Family history of Ovarian Cancer (V16.41 ) Comments: Family History Status: Active Family history of Colon Cancer (V16.0) Comments: Family History Status: Active Social History Name Dates Details - Status: Name Dates Details Never smoker Former smoker Vital Signs Date Test Result Details 7-[id number]:34 BP Systolic 122 mm[Hg] Status: Comments: Lo [...] Status: Results Date Description Value Details :14 [] LIPID PANEL WITH REFLEX TO DIRECT L [...] LDL-C. Jacky SS et al. JAYME. 2013;310(19): 5774-2854 (http :[email or web address].Gruvie/faq/BGL273) CHOL/HDLC RATIO 4.5 {CALC} (Normal) Range: <5.0 NON HDL CHOLESTEROL 159 {MG/DL__CAL} (Above hig h threshold) Range: <130 Comments: For patients with diabetes plus 1 major ASCVD risk factor, treating to a non-HDL-C goal of <100 mg/dL (LDL-C of <70 mg/dL) is considered a therapeutic option. :14 [[facility]] CMP W/EGFR GLUCOSE 123 mg/dl (Above high [...] is approximately 13% higher for peopleidentified as -Zimbabwean. eGFR NON- 77 {ML/MIN/1.7} (Norm al) Range: [...] ALT 27 u/l (Normal) Range: 6-29 :14 [[facility]] CBC (INCLUDES DIFF/PLT) WHITE BLOOD CELL COUNT [...] ABSOLUTE NEUTROPHILS 3278 {cells/uL} (Normal) R joe: [phone] ABSOLUTE LYMPHOCYTES 2781 {cells/uL} (Normal) R joe: [phone] ABSOLUTE MONOCYTES 551 {cells/uL} (Normal) Rang e: 200-950 ABSOLUTE EOSINOPHILS 150 {cells/uL} (Normal) Ra nge: 15-500 ABSOLUTE BASOPHILS 41 {cells/uL} (Normal) Range : 0-200 NEUTROPHILS 48.2 % (Normal) LYMPHOCYTES 40.9 % (Normal) MONOCYTES 8.1 % (Normal) EOSINOPHILS 2.2 % (Normal) BASOPHILS 0.6 % (Normal) :14 [QL] TSH, 3RD GENERATION W/REFLEX TO FT 4 TSH, 3RD GENERATION W/REFLEX TO FT4 2.25 {MIU/L } (Normal) Range: 0.40-4.50 :14 [QL] VITAMIN D, 25-HYDROXY, LC/MS/MS C omments: REPORT [...] D, (D2,D3), LC/MS/MS is recommended: order code 09270 (patients >2yrs). For more information on this test, go to:http://education.[email or web address]/faq/ITX676(This link is being provided for informational/educational purposes [...]
--- OUTSIDE RECORDS SUMMARY | 2019-11-29 17:58 | XMS REPORT | Summary of Care ---
Author Author BEATRIZ TIWARI Organization Unknown Address Unknown Phone Unavailable Care Team Providers Care Party Plan Sales Host/Hostess Name Role Phone MIKAYLA TIWARI Unavailable Unavailable DREA Ramon.OLeilani, CRISTI Unavailable Unavailable KADI WILKINSON [place], TRACE PACHECO Unavailable Unavailable DIA WILKINSON [place], YRIS NARAYANAN Unavailable Unavailnayana BATISTA PA-C, MIKAYLA Unavailable Unavailable BEVERLEY, NAT Unavailable Unavailable KADI Garcia, TRACE Unavailable Unavailable DREA WELL[place], CRISTI Unavailable Unavailable ELIN WILKINSON, SAMSON Lin Unavailable Unavailable Unavailable Unavailable Functional Status Name Dates Details Functional status health issues are not documented Status: Name Dates Details Cognitive status health issues are not d ocumented Status: Problems Name Dates Details Urinary frequency (788.41, R35.0) Status: Active Low back pain with left-sided sciatica ( 724.3, M54.42) Status: Active Chronic sciatica, left (724.3, M54.32) Status: Active Osteoporosis (733.00, M81.0) Status: Active Essential (primary) hypertension (401.9, I10) Status: Active Anxiety (300.00, F41.9) Status: Active Vitamin D insufficiency (268.9, E55.9) Status: Active Chronic bilateral low back pain without sciatica (724.2, M54.5) Status: Active Acute UTI (599.0, N39.0) Status: Active Medications Name Dates Details Fish Oil CAPS Active Lisinopril 20 MG Oral Tablet TAKE 1 TABLET DAILY. * Refills: 0 Active Aspirin 81 MG TABS one daily * Refills: 0 Active Vitamin B-12 TABS * Refills: 0 Active Vitamin E CAPS * Refills: 0 Active Zoloft CONC Use Pedi Dose 0.75 ML Liguid * Refills: 0 Active Cephalexin 500 MG Oral Capsule TAKE 1 CAPSULE EVERY 12 HOURS UNTIL GONE. * Quantity: 14 Refills: 0 LYNNE Pressley, MIKAYLA * Start : 25-Aug-2017 End : 22-Nov-2019 Active Fluticasone Propionate 50 MCG/ACT Nasal Suspension USE 2 SPRAYS IN EACH NOSTRIL ONCE DAILY * Quantity: 1 Refills: 5 CRISTI SHEPARD D.O. * Start : 31-Aug-2017 Active 15.8 ML Bottle Co Q-10 400 MG Oral Capsule 2 a day * Refills: 0 * Start : 26-Apr-2018 Active Ambien 5 MG Oral Tablet * Refills: 0 Active Dexamethasone 4 MG Oral Tablet Take one tablet daily X ten days * Quantity: 10 Refills: 0 BATISTA P.A., MIKAYLA * Start : 15-Nov-2019 Active Cyclobenzaprine HCl - 5 MG Oral Tablet TAKE 1 TABLET AT BEDTIME. * Quantity: 10 Refills: 0 BATISTA P.A., MIKAYLA * Start : 15-Nov-2019 Active Allergies and Adverse Reactions Name Dates Details Codeine Derivatives (Allergy) Status: Ac tive Levaquin TABS (Allergy) Status: Active Penicillins (Allergy) Status: Active Sulfa Drugs (Allergy) Status: Active Past Medical History Name Dates Details History of Acute bronchitis, bacterial ( 466.0, J20.8) Status: Resolved History of Acute pain of both hips (719. 45, M25.551) Status: Resolved History of Acute upper respiratory infec tion (465.9, J06.9) Status: Resolved History of Acute UTI (599.0, N39.0) Status: Resolved History of cerebral artery occlusion (V1 2.59, Z86.79) Status: Resolved History of influenza vaccination (V49.89 , Z92.29) Status: Resolved History of Melanoma In Situ Of The Skin (V10.82) Status: Resolved History of Multiparity (V61.5, Z64.1) Status: Resolved History of Myalgia and myositis (729.1) Status: Resolved History of persistent cough (V12.69, Z87 .09) Status: Resolved History of seasonal allergies (V15.09, Z 88.9) Status: Resolved Personal history of urinary tract infect ion (V13.02, Z87.440) Status: Resolved Procedures Procedure Dates Details [QL] BASIC METABOLIC PANEL W/EGFR Date: 25-Oct-2019 [QL] VITAMIN D, 25-HYDROXY, LC/MS/MS Date: 25-Oct-2019 [QL] CULTURE, URINE, ROUTINE Date: 15-Nov-2019 History of Hysterectomy Completed History of Bladder Procedures Completed History of 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 change 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 Completed Immunization Name Dates Details Influenza on: 23-Mar-2011 Boostrix 5-2.5-18.5 Intramuscular Suspen eric on: 30-Jan-2017 Fluzone Quadrivalent 0.5 ML Intramuscula r Suspension Lot #: [id number] on: 19-Apr-2017 Family History Name Dates Details Family history of Alzheimer Disease Comments: Family History Status: Active Family history of Ovarian Cancer (V16.41 ) Comments: Family History Status: Active Family history of Colon Cancer (V16.0) Comments: Family History Status: Active Social History Name Dates Details - Status: Name Dates Details Never smoked tobacco (finding) Ex-smoker (finding) Vital Signs Date Test Result Details :51 Physical Findings 3 Status: Comments: PH Q-9 Adult Depression Screening :50 Systolic blood pressure 131 mm[Hg] Status: Comments : Location: LUE; Position: Sitting Diastolic blood pressure 61 mm[Hg] Status: Comment s: Location: LUE; Position: Sitting Body height 65 in Status: Weight 217.5625 lb Status: Body mass index (BMI) [Ratio] 36.2 kg/m2 Status: Body surface area Derived from formula 2.05 m2 S tatus: Body temperature 98.2 f Status: Comments: Me thod: Temporal Heart Rate 73 /min Status: Respiratory rate 16 /min Status: Physical Findings 0 Status: Comments: Al cohol Screen - How many times in the past yr have you had 5 (for M) or 4 (for F) or 4 (for all > 65yrs) or more drinks in a day? 7-Mef-122953:08 Systolic blood pressure 116 mm[Hg] Status: Comments [...] is approximately 13% higher for peopleidentified as -Malawian. eGFR NON- 76 {ML/MIN/1.7} (Norm al) Range: [...] HORMONE, INTACT 49 pg/ml (Normal) R joe: 14-64 Comments: Interpretive Guide Intact PTH Calcium -------Normal Parathyroid Normal NormalHypoparathyroidism Low or Low Normal LowHyperparathyroidism Primary Normal or High High Secondary High Normal or Low Tertiary High HighNon- Parathyroid Hypercalcemia Low or Low Normal High :46 [QL] VITAMIN D, 25-HYDROXY, LC/MS/MS Co mments: [...] D, (D2,D3), LC/MS/MS is recommended: order code [id number] (patients >2yrs).See Note 1 Note 1 For additional information, please refer to http://education.[employer]/faq/THE533 (This link is being provided for informational/educational purposes only.) 94-Uzy-36967:30 [O] Urine Dipstick (In Office) Glucose NEGATIVE (Normal) LEUKOCYTES NEGATIVE (Normal) NITRITE NEGATIVE (Normal) UROBILINOGEN NEGATIVE (Normal) PROTEIN NEGATIVE (Normal) pH 6 (Normal) URINE BLOOD NEGATIVE (Normal) SPECIFIC GRAVITY 1.010 (Normal) KETONES NEGATIVE (Normal) BILIRUBIN NEGATIVE (Normal) COLOR URINE YELLOW (Normal) APPEARANCE CLEAR (Normal) Plan of Care Name Dates Details Planned Observations Planned Goals not documented Planned Encounters Appointment; YRIS ALVARES M.D . On: 22-Oct-2020 14:00 Interventions Provided Medication Changes* Cephalexin 500 MG Oral Capsule - Renew * Cyclobenzaprine HCl - 5 MG Oral Tablet - Start * Dexamethasone 4 MG Oral Tablet - Start Labs/Procedures/Imaging* [QL] CULTURE, URINE, ROUTINE; To Be Done: 15 Nov 2019 * [O] Urine Dipstick (In Office); Done: 15 Nov 2019 * Tobacco Use Screening; Done: 15 Nov 2019 Medications/Immunizations Administered* MethylPREDNISolone Acetate 80 MG/ML Injection Suspension Instructions Name Dates Details Instructions not documented Encounters Appointment; CRISIT SHEPARD D.O. Encounter Diagnosis: Problem not documented [...] Diagnosis: Problem not documented On: 23-Oct-2019 13:00 Appointment; MIKAYLA BATISTA P.A. Encounter Diagnosis: Problem not documented On: 15-Nov-2019 8:45
--- OUTSIDE RECORDS SUMMARY | 2019-11-29 17:58 | XMS REPORT | Summary of Care ---
Author Author BEATRIZ Judd M.A. Organization Unknown Address Unknown Phone Unavailable Care Team Providers Care Beauty School Instructor Name Role Phone BATISTA P.A., MIKAYLA Unavailable Unavailable DREA D.OLeilani, CRISTI Unavailable Unavailable KADI WILKINSON [place], TRACE PACHECO Unavailable Unavailable DIA WILKINSON [place], YRIS NARAYANAN Unavailable Unavailnayana BATISTA PA-C, MIKAYLA Unavailable Unavailable BEVERLEY, NAT Unavailable Unavailable KADI Garcia, TRACE Unavailable Unavailable DREA WELLINGTON [place], CRISTI Unavailable Unavailable ELIN WILKINSON, SAMSON Lin [...] UNTIL GONE. * Quantity: 14 Refills: 0 BATISTA P.A., MIKAYLA * Start : 25-Aug-2017 End : [...] Bladder Procedures Completed History of Insertion of telemetry monitor Completed Immunization Name Dates Details Influenza on: 23-Mar-2011 Boostrix 5-2.5-18.5 Intramuscular Suspen eric on: 30-Jan-2017 Fluzone Quadrivalent 0.5 ML Intramuscula r Suspension Lot #: [id number] on: 19-Apr-2017 Family History Name Dates Details Family history of Alzheimer Disease Comments: Family History Status: Active Family history of Ovarian Cancer (V16.41 ) Comments: Family History Status: Active Family history of Colon Cancer (V16.0) Comments: Family History Status: Active Social History Name Dates Details - Status: Name Dates Details Never smoked tobacco (finding) Ex-smoker (finding) Vital Signs Date Test Result Details 09-Mvh-33092:51 Physical Findings 3 Status: Comments: PH Q-9 [...] 65yrs) or more drinks in a day? 4-Iev-305819:08 Systolic blood pressure 116 mm[Hg] Status: Comments [...] is approximately 13% higher for peopleidentified as -[place] Islander. eGFR NON- 76 {ML/MIN/1.7} (Norm al) Range: [...] D, (D2,D3), LC/MS/MS is recommended: order code 39273 (patients >2yrs).See Note 1 Note 1 For additional information, please refer to http://education.[employer]/faq/ATU668 (This link is being provided for informational/educational purposes only.) 13-Szc-75520:30 [O] Urine Dipstick (In Office) Glucose NEGATIVE [...]
--- OUTSIDE RECORDS SUMMARY | 2019-11-29 17:58 | XMS REPORT | Summary of Care ---
Author Author BEATRIZ Judd M.A. Organization Unknown Address Unknown Phone Unavailable Care Team Providers Care Senior Web Architect Name Role Phone LYNNE Pressley, MIKAYLA Unavailable Unavailable DREA D.OLeilani, CRISTI Unavailable Unavailable KADI WILKINSON MO, TRACE PACHECO Unavailable Unavailable DIA WILKINSON MO, YRIS NARAYANAN Unavailable Unavailnayana BATISTA PA-C, MIKAYLA [...] Active Cough, persistent (786.2, R05) Status: Active Low back pain with left-sided sciatica ( 724.3, M54.42) Status: Active Acute pain of both hips (719.45, M25.551 ) Status: Active Chronic sciatica, left (724.3, M54.32) [...] Bladder Procedures Completed History of Insertion of cafeteria monitor Completed Immunization Name Dates Details Influenza on: 23-Mar-2011 Boostrix 5-2.5-18.5 Intramuscular Suspen eric on: 30-Jan-2017 Fluzone Quadrivalent 0.5 ML Intramuscula r Suspension Lot #: [id number] on: 19-Apr-2017 Family History Name Dates Details Family history of Alzheimer Disease Comments: Family History Status: Active Family history of Ovarian Cancer (V16.41 ) Comments: Family History Status: Active Family history of Colon Cancer (V16.0) Comments: Family History Status: Active Social History Name Dates Details - Status: Name Dates Details Never smoked tobacco (finding) Ex-smoker (finding) Vital Signs Date Test Result Details :50 Systolic blood pressure 131 mm[Hg] Status: [...] 65yrs) or more drinks in a day? :08 Systolic blood pressure 116 mm[Hg] Status: Comments : Location: LUE; Position: Sitting Diastolic blood pressure 69 mm[Hg] Status: Comment s: Location: LUE; Position: Sitting Body height 65 in Status: Weight 223 lb Status: Body mass index (BMI) [Ratio] 37.11 kg/m2 Status: Body surface area Derived from formula 2.07 m2 S tatus: Body temperature 98.4 f Status: Comments: thod: Oral Heart Rate 64 /min Status: [...] is approximately 13% higher for peopleidentified as -[place]. eGFR NON- 76 {ML/MIN/1.7} (Norm al) Range: [...] HORMONE, INTACT 49 pg/ml (Normal) R joe: -64 Comments: Interpretive Guide Intact PTH Calcium -------Normal [...] D, (D2,D3), LC/MS/MS is recommended: order code 32390 (patients >2yrs).See Note 1 Note 1 For additional information, please refer to [email or web address]/QLP067 (This link is being provided for informational/educational purposes only.) Plan of Care Name Dates Details Planned Observations Planned Goals not documented Planned Encounters Appointment; YRIS ALVARES M.D . On: 22-Oct-2020 14:00 Interventions Provided Labs/Procedures/Imaging* Tobacco Use Screening; Done: 15 Nov 2019 Instructions Name Dates Details Instructions not [...]
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
[2019-11-29] MEDS ORDERED: TRAMADOL HCL 50 MG TAB PO ONE (22:00)
[2019-11-29 23:05] VITALS: BP_SYST 139
== END 2019-11-29 23:27 | disposition home or self-care (01) ==
LOC: ER 17:53
DX: S00.83XA Contusion of other part of head, initial encounter (principal); R07.89 Other chest pain; M54.5 Low back pain; V43.52XA Car driver injured in collision with other type car in traffic accident, initial encounter; Y92.488 Other paved roadways as the place of occurrence of the external cause; I10 Essential (primary) hypertension; F41.9 Anxiety disorder, unspecified
CPT/HCPCS: 70450; 71046; 72100; 72125; 93005; 99284

== ENCOUNTER → 2021-06-10 | Outpatient (CLI) | payer MEDICARE | LOC: MRI 08:31 | PROVIDERS: ATTEND Radiology Neuroradiology | DX: M54.16 Radiculopathy, lumbar region (principal) | CPT/HCPCS: 72148 ==